=== PATIENT | female | born 1965 | race Caucasian/White ===

== ENCOUNTER → 2016-09-15 | Outpatient (CLI) | payer OTHER ==
[~2016-09-15] VITALS: Ht 152.4 cm; Wt 98.0 kg
[~2016-09-15] MED LIST: 8 HOUR650 MG RECTAL; ADULT SUPPOSIT1 EACH RECTAL; ALLERGY RELIEF25 M2 PO; AMBIEN 10 MG TA10 MG PO; ASPIRIN EC81 M1; ASPIRIN EC81 M1 PO; AUGMENTIN 875-1 EACH PO; AUGMENTIN 875875 MG PO; AZITHROMYCIN 2250 MG PO; AZOR 10-40 MG1 EACH PO; BUTRANS1 EAC2 TD; BUTRANS1 EAC3 TD; CARAFATE 11 GM/10 M1 PO; CEFDINIR300 MG PO; CELEBREX50 MG PO; CELEXA20 MG PO; COLACE100 MG PO; COUGH SYRUP118 ML PO; COZAAR 50 MG TA50 M2 PO; CYMBALTA30 MG PO; CYMBALTA60 MG PO; DIFLUCAN150 MG PO; DILAUDID2 M1 PO; DUONEB 2.5-0.5 M3 ML INH; FLAGYL500 MG PO; FLEET ENEMA118 ML RC; FLEXERIL PO; FLONASE 0.05%50 MCG NASAL; GLUCOSAMINE CH1 EAC1 PO; HYDROCODON-ACE1 EAC7 PO; HYDROCODON-ACE1 EAC8 PO; HYDROCODON-ACE1 EACH PO; HYDROCODONE-AP1 EAC6 PO; IBUPROFEN 400400 M1 PO; KLOR-CON 1010 MEQ PO; LEVAQUIN 500 M500 M2 PO; LINZESS145 MCG PO; LIPITOR10 MG PO; LISINOPRIL20 MG PO; LIVALO4 MG PO; MEDROLDOSEPACK; MIRALAX17 GM PO; MOM PO; MUCINEX TA600 MG/TA1 PO; NABUMETONE 750750 M1 PO; NEURONTIN 300300 M1 PO; NEURONTIN 300M300 M2; NICODERM CQ1 EAC1; NICOTINE TRANSD21 M1 TRANSDERM; NORCO 5-325 TA1 EACH PO; NORFLEX100 MG PO; NORVASC10 MG; NORVASC10 MG PO; NYSTATIN 1100000 U/M PO; NYSTATIN 1100000 U/M SW&SWALLOW; OMNICAP TABLET0.4 MG; ONDANSETRON HCL4 M2 PO; PANTOPRAZOLE SO40 M1 PO; PERCOCET 7.5-31 EACH; PERCOCET 7.5-31 EACH PO; POTASSIUM20 PO; PREDNISONE 10 M10 MG PO; PREDNISONE 20 M20 MG PO; PREVACID15 MG PO; PREVACID30 M2 PO; PROAIR HFA8.5 GM INH; PROMS25 WY RECTAL; PROTONIX40 M1 PO; PROTONIX40 MG PO; PULMICORT0.25 MG/3 INH; PULMICORT0.5 MG/21 INH; REGLAN 10 MG TA10 MG PO; REQUIP 0.25 M0.25 MG PO; SYMBICORT160 MCG/4. INH; TESSALON PERLE100 MG PO; TIZANIDINE HCL 22 M1 PO; TOPROL XL 50 MG50 M1 PO; TRAMADOL 50 MG50 MG PO; VENTOLIN HFA 1818 GM INH; VENTOLIN HFA INH8 GM INH; VESICARE 5 MG TA5 M1 PO; VITAMIN D 5050000 I1 PO; XANAX 0.25 MG0.25 MG PO; XANAX 0.5 MG0.5 M1 PO; XANAX 0.5 MG0.5 MG PO; ZANAFLEX2 MG PO; ZANAFLEX4 MG PO; ZESTRIL40 MG PO; ZOCOR40 MG PO; ZOFRAN8 MG PO; ZPAK PO
--- NOTE | ~2016-09-15 | HPC ---
[facility] [place] [address] PAIN MANAGEMENT CONSULTATION Name: ALLEN CABRERA Room #: REG [facility] Paola.#: [id number] Admission: 09/15/16 Attend Phys: William Ramsey DO Discharge: Date of : 69 Report #: [id number] THIS REPORT FOR: //name// CC: Danielle Fisher DATE OF SERVICE: 09/15/2016 The patient is a 51-year-old female, well known to the pain clinic. She works at [employer]. She has been treated for lumbar radiculopathy, myofascial pain, neuropathic pain, DJD affecting bilateral knees, SI joint dysfunction requiring complex medication management. Last seen in pain clinic on 08/19/2016. She continued on Butrans 10 mcg, Requip h.s., gabapentin 300 mg 4 tablets h.s. and Relafen 750 mg b.i.d. He returns to pain clinic today, we had a prolonged visit from 13:05 to 13:30, greater than 50% of this 25-minute visit was spent counseling the patient. She is complaining of ongoing multiple pain generators, bilateral knees, left leg and left SI joint pain. She continues to smoke, down to half a pack a day and was counseled regarding smoking, nicotine use and axial back pain. She notes she also some pain in the left foot. It sounds more like arthritic issues at the first great toe, proximal interphalangeal joint. Rates the pain 6 on 0-10 visual analog scale, presently noting that the Butrans has afforded some efficacy. She does take a rare hydrocodone. She has tried rotating gabapentin from 4, 300 tablets h.s. to 1 in the morning and 3 at night. This did not affect her daytime somnolence. Continue Relafen 750 b.i.d. PHYSICAL EXAMINATION: This is a 51-year-old female, moderately obese with a BMI of 42.2 kilograms per meter squared. Blood pressure is modestly elevated at 135/92, pulse 86 and respirations 15. Straight leg raise is negative, but the left hip flexion strength is diminished about 3/5, all other objective muscle groups are 4/5 including the right leg muscle groups. Tender over the SI joints, left greater than right. Positive Li test on the left. Interestingly today, there are really no discrete trigger points or muscle tautness noted in the splenius capitis and trapezius and thoracic paravertebral muscles, though she has a prior diagnosis of "fibromyalgia." ASSESSMENT: 1. Symptomatic sacroiliac joint dysfunction by clinical exam. 2. History of lumbar radiculopathy, myofascial pain, degenerative joint disease affecting bilateral knees with tenderness in the left knee, currently wearing a left knee brace, minimal ballotable edema. RECOMMENDATIONS: 1. X-rays, bilateral knees. 2. Continue current medication with the addition of a rare p.r.n. hydrocodone [address] [address] PAIN MANAGEMENT CONSULTATION Name: DEBORAHALLENDELL DUNCAN Room #: REG GUILHERME Lopez#: [id number] Admission: 09/15/16 Attend Phys: William Ramsey DO Discharge: Date of : 69 Report #: [id number] 5/325 taken the liberty of writing for 30 tablets. 3. We will seek authorization for left SI joint injection under fluoroscopy for left lumbosacral spondylosis, mediated pain. She had some 90% relief from a left SI joint injection for greater than 2 months back in May. The patient was discharged in good and stable condition after prolonged visit, greater than 50% of time spent counseling the patient regarding core strengthening exercises, nicotine abstinence, dietary discretion and chronic pain concerns. We reviewed the fact that opiate medications are being used to provide analgesia adequate to support activities of daily living, not attempting to achieve a specific pain score on the 0-10 Visual Analog Scale. The current opiate medications are providing sufficient analgesia to allow the patient to participate in activities of daily living. The patient is not exhibiting any aberrant behavior suggestive of drug diversion. The patient is not having any adverse reactions to medications. The patient is not suffering from daytime somnolence or mental acuity changes. The patient is managing opiate-induced constipation with appropriate ogzc-koh-kemzfys agents and dietary considerations. The patient was counseled on concern for caution with operating a motor vehicle while using opiate medications. A physical exam was performed and the patient's functional status was evaluated. All patients with back pain were advised against the bed rest greater than 4 days and were advised to return to normal activities. Pain score assessment was noted and the treatment plan was reviewed with the patient. All current medications, both prescribed and OTC were reviewed and reconciled on the electronic medical record. Tobacco screening was accomplished and smoking cessation was advised when indicated. BMI was noted and diet/exercise modification was recommended for all patients following outside normal parameters. I reviewed with the patient today their responsibilities to safeguard prescription medications, reviewed their responsibility to utilize medications only as prescribed by the physician. They are to seek and receive pain medications only from 1 physician group ([facility]). They are to use 1 pharmacy and keep the clinic informed if they change pharmacies. Their responsibilities include making followup visits in a timely fashion and to avoid abrupt discontinuation of medication usage. Their responsibilities further include bringing their medications (bottles from the pharmacy with residual pills) to the visit for possible confirmation of pill counts and the patient understands it is their responsibility to submit to random drug screens to ensure both that the medications prescribed are present, and that no other [facility] [address] [place] [address] PAIN MANAGEMENT CONSULTATION Name: ALLEN CABRERA Room #: REG [facility]..#: [id number] Admission: 09/15/16 Attend Phys: William Ramsey DO Discharge: Date of : 69 Report #: [id number] controlled substances are present. All prescriptions provided today were generated electronically. <ELECTRONICALLY SIGNED> By: William Ramsey DO 09/21/16 1031 1559 2349 William Ramsey DO /nt
[2016-09-15 12:56] VITALS: BP 135/92
== END | disposition home or self-care (01) ==
LOC: PAIN 07:27
DX: M53.3 Sacrococcygeal disorders, not elsewhere classified (principal); M54.16 Radiculopathy, lumbar region; M79.1 Myalgia; M17.0 Bilateral primary osteoarthritis of knee; M47.897 Other spondylosis, lumbosacral region; G89.29 Other chronic pain; F17.200 Nicotine dependence, unspecified, uncomplicated; G47.30 Sleep apnea, unspecified; G43.909 Migraine, unspecified, not intractable, without status migrainosus; E66.01 Morbid (severe) obesity due to excess calories; Z68.41 Body mass index [BMI] 40.0-44.9, adult

== ENCOUNTER → 2017-02-09 | Outpatient (CLI) | payer OTHER | LOC: MRI 09:21 | DX: M48.02 Spinal stenosis, cervical region (principal); M51.24 Other intervertebral disc displacement, thoracic region; M50.223 Other cervical disc displacement at C6-C7 level ==

== ENCOUNTER → 2017-02-10 | Outpatient (CLI) | payer OTHER | LOC: MRI 09:14 | DX: M75.52 Bursitis of left shoulder (principal) ==

== ENCOUNTER → 2017-02-16 | Outpatient (CLI) | payer OTHER ==
[~2017-02-16] VITALS: Ht 165.1 cm; Wt 94.0 kg
[~2017-02-16] MED LIST changes: +MOBIC15 MG PO; +ROBAXIN 750 MG750 M1 PO
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
[2017-02-16 10:03] VITALS: BP 158/108
== END ==
LOC: PAIN 06:56
DX: M54.12 Radiculopathy, cervical region (principal); M54.16 Radiculopathy, lumbar region; G89.4 Chronic pain syndrome; I10 Essential (primary) hypertension; J06.9 Acute upper respiratory infection, unspecified; J20.9 Acute bronchitis, unspecified; G43.909 Migraine, unspecified, not intractable, without status migrainosus; J20.1 Acute bronchitis due to Hemophilus influenzae; F17.200 Nicotine dependence, unspecified, uncomplicated

== ENCOUNTER → 2017-03-09 | Outpatient (CLI) | payer OTHER ==
[~2017-03-09] VITALS: Ht 165.1 cm; Wt 93.7 kg
[2017-03-09 09:59] VITALS: BP 145/84
== END | disposition home or self-care (01) ==
LOC: PAIN 06:38
DX: M54.12 Radiculopathy, cervical region (principal); M25.512 Pain in left shoulder; M54.5 Low back pain; G89.29 Other chronic pain; K21.9 Gastro-esophageal reflux disease without esophagitis; G47.33 Obstructive sleep apnea (adult) (pediatric); G43.909 Migraine, unspecified, not intractable, without status migrainosus; F17.210 Nicotine dependence, cigarettes, uncomplicated; F41.8 Other specified anxiety disorders; Z88.8 Allergy status to other drugs, medicaments and biological substances; Z98.890 Other specified postprocedural states

== ENCOUNTER → 2017-05-05 | Outpatient (CLI) | payer OTHER ==
[~2017-05-05] VITALS: Ht 165.1 cm; Wt 95.1 kg
[~2017-05-05] MED LIST changes: +BUTRANS1 EAC4 TD
--- NOTE | ~2017-05-05 | HPC ---
[facility] [place] [address] PAIN MANAGEMENT CONSULTATION Name: ALLEN CABRERA Room #: REG GUILHERME Lopez#: [id number] Admission: 05/05/17 Attend Phys: William Ramsey DO Discharge: Date of : 69 Report #: [id number] THIS REPORT FOR: //name// CC: Benjie Ramsey HISTORY OF PRESENT ILLNESS: The patient is a 51-year-old female well known to the pain clinic, she has worked at [employer] for many years, has been treated for cervical radicular symptoms, lumbar radiculopathy, left hip pain, left SI pain, left shoulder pain, requiring high risk complex medication management. Last seen in the pain clinic on 03/09/2017. She was given a cervical epidural injection for exacerbation of cervical radicular symptoms. She had somewhat of a palpable pop and click in the left shoulder. I referred her to Dr. Saiin at [facility]. He evaluated her shoulder, did give her what sounds like a steroid injection in the shoulder and considered physical therapy. She is currently doing PT, but notes pain continues to be problematic. Given diagnostic findings including MRI of the left shoulder on 02/10/2017 noting mild subacromial and subdeltoid bursitis along with cervical physical exam noting irritation of the left C7 nerve root. I have referred the patient to Dr. Gt Ahmadi's office for consideration for surgical definitive intervention on cervical spine. The patient returns to pain clinic today, we had a prolonged visit reviewing interval therapeutic options. She notes PT for the left shoulder is causing increasing pain in actually both shoulders now. Acute exacerbation of lumbar radicular pain with pain in the left low back radiating into the buttock and leg. She notes the Butrans patch at 10 mcg is not providing sufficient analgesia for her to participate in physical therapy. PHYSICAL EXAMINATION: GENERAL: Shows a 51-year-old female, BMI is 34.9 kilograms per meter squared. She continues to smoke and was counseled regarding same. VITAL SIGNS: Blood pressure 143/86, pulse 86, respirations 20. NEUROLOGIC: Cervical range of motion is modestly limited, grossly positive Lhermitte's radiating to the left shoulder and arm with paresthesia into the hand. Has a modestly positive Tinel's over the left ulnar. Hand grasp, however, is generally symmetric. Discrete diffuse tenderness in the splenius capitis and trapezius muscles with discrete trigger points noted, left greater than right trapezius and splenius capitis, 4 discrete trigger points identified. Rises from chair using armrests, antalgic gait. Lumbar flexion is limited. Positive straight leg raise on the left, slight decreased left hip flexion strength. Passive rotation of the hip exacerbates some pain, but this does not reproduce current symptoms. Tender over the left SI, but this does not reproduce her lumbar radicular symptoms either. DIAGNOSTIC STUDIES: Again reviewing diagnostic studies, plain series x-rays of the lumbar spine from 01/21/2017 notes disk narrowing at L4-L5 and L5-S1. [address] [address] PAIN MANAGEMENT CONSULTATION Name: DEBORAHALLENDELL RICHEYE Room #: REG CLI Jessica#: [id number] Admission: 05/05/17 Attend Phys: William Ramsey DO Discharge: Date of : 69 Report #: [id number] ASSESSMENT: 1. Cervical radiculopathy by clinical exam and history. 2. Left shoulder degenerative joint disease, pain. 3. Axial back pain. 4. Lumbar radiculopathy, acute exacerbation of left L4 radicular symptoms. 5. New diagnosis of myofascial pain with trigger points identified times 4. 6. Opiate consent to treat contract, high risk complex medication management. RECOMMENDATIONS: 1. We will increase Butrans transdermal from 10 to 15 mcg for 2 months. 2. Continue meloxicam 15 mg 1 a day, patient tells me she did follow up with Dr. Palomo's office and renal function was adequate. 3. I will renew physical therapy asking them to direct attention to both shoulders (currently PT is only for left shoulder), mid and low back muscle spasm and core stability. 4. Trigger point injections to the 4 discrete trigger points noted. 5. Epidural injection under fluoroscopy today at L4-L5. PROCEDURE: Trigger point injections times 4. PROCEDURE NOTE: After written informed consent was obtained, the patient was placed in the prone position. Four discrete trigger points identified in the left and right splenius capitis and left and right trapezius. After prep with alcohol, a 25-gauge needle was used to inject 20 mg of triamcinolone plus 6 mL of 0.5% preservative-free bupivacaine. The patient was then placed in the fluoroscopy suite in prone position. L4 epidural injection was accomplished under fluoroscopy. PROCEDURE: Lumbar epidural steroid injection. PROCEDURE NOTE: After both written and informed consent to include risk of spinal cord damage, increased pain, weakness and dural puncture, the patient was taken to the fluoroscopy suite, placed in the prone position. After sterile prep and drape, a skin wheal with lidocaine was raised. A 22-gauge epidural Tuohy needle was inserted in the midline at L4-L5 with good loss to resistance. Negative aspiration for cerebrospinal fluid or blood was noted. Then 1 mL of Omnipaque under biplanar fluoroscopy showed good spread within the epidural space. This was followed with 60 mg of triamcinolone plus 1 mL of 1.5% preservative-free Xylocaine, 0.5 mL Xylocaine was then injected to flush the needle; it was removed. The patient was monitored for an appropriate period of time and discharged in good and stable condition. <ELECTRONICALLY SIGNED> By: William Ramsey DO 05/08/17 1253 1148 1944 William Ramsey DO /nt
[2017-05-05 10:11] VITALS: BP 143/86
== END | disposition home or self-care (01) ==
LOC: PAIN 07:00
DX: M54.16 Radiculopathy, lumbar region (principal); M79.1 Myalgia; M54.12 Radiculopathy, cervical region; M19.012 Primary osteoarthritis, left shoulder; M54.5 Low back pain; Z68.34 Body mass index [BMI] 34.0-34.9, adult

== ENCOUNTER 2017-05-09 10:11 | Observation (INO) | payer OTHER ==
[~2017-05-09] VITALS: Ht 165.1 cm; Wt 93.9 kg
--- NOTE | ~2017-05-09 | EKG ---
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: KEV : 1965 Requested By: Maverick Menendez Order Number: [id number] MD: Brian Baez Measurements Intervals [place] Rate: 65 P: 19 MA: 137 QRS: 5 QRSD: 95 T: 12 QT: 393 QTc: 409 Interpretive Statements Sinus rhythm No significant abnormality Compared to ECG 07/29/2016 14:27:38 No significant changes Electronically Signed On 05-09-2017 18:00:24 CDT by Brian Baez [email or web address] <ELECTRONICALLY SIGNED> By: Brian Baez MD, [facility] 05/09/17 1800 50 50 Brian Baez MD, [facility] /EPI
--- NOTE | ~2017-05-09 | P ---
[facility] [place] [address] PROCEDURE REPORT Name: ALLEN CABRERA Room #: 210-P [facility] Wilma Lopez#: [id number] Admission: 05/09/17 Attend Phys: Benjie Palomo MD Discharge: 05/10/17 Date of : 69 Report #: [id number] THIS REPORT FOR: //name// CC: Robin Palomo MD DATE OF SERVICE: 05/10/2017 PROCEDURE: EGD with esophageal dilatation and brushings. PATIENT OF: Dr. Benjie Palomo and Dr. Robin Edwards. INDICATION FOR PROCEDURE: This patient has been having intermittent dysphagia, gastroesophageal reflux symptoms, epigastric pain, nausea and vomiting and chest pressure, etiology uncertain. Informed consent for this procedure was obtained prior to the administration of any medication. The risks of the procedure, which include bleeding, perforation, infection, complications of sedation and the possibility I could miss something have been explained to the patient and she has indicated her consent by signing. Propofol was slowly titrated before and during this procedure for patient comfort by the anesthesia service. The GeneNewsn upper videoscope was introduced through the upper esophageal sphincter and advanced under direct visualization to the second portion of the duodenum. Findings are noted on withdrawal of the scope. The duodenal mucosa appears normal throughout its entirety. Pylorus, normal mucosa. Antrum, normal mucosa. Body, normal mucosa. Cardia and fundus, normal mucosa. Retroflex view did not reveal any abnormalities. The scope was withdrawn into the esophagus. The Z-line is appropriately located at the top of the gastric folds and appears normal. The esophageal mucosa appears normal except for an exudative type of material that could be Ayesha that extends in islands throughout the esophagus. Brushings were obtained of this for ERIC prep to rule out Ayesha. Then, the scope was advanced into the stomach. The guidewire was advanced through the scope. The scope was withdrawn over the guidewire and a #48-Swedish Savary was passed over the guidewire. With that difficulty in order to try to alleviate her dysphagia, the guidewire and the dilator were removed and then the Fujinon upper videoscope was reintroduced through the upper esophageal sphincter and advanced under direct visualization to the descending duodenum. Once again, the duodenal mucosa appears normal. Pylorus, normal mucosa. Antrum, normal mucosa. Body, normal mucosa. Cardia and fundus, normal mucosa. Retroflex view did not reveal any abnormalities. The scope was withdrawn to the esophagus. There was no esophageal tears or from this esophageal dilatation. The esophageal mucosa is unchanged. The [address] [address] PROCEDURE REPORT Name: ALLEN CABRERA Room #: 210-P AMARI Dillon M.RAlex#: [id number] Admission: 05/09/17 Attend Phys: Benjie Palomo MD Discharge: 05/10/17 Date of : 69 Report #: [id number] scope was withdrawn. The patient went to the recovery area in stable condition. She tolerated the procedure well. IMPRESSION: 1. Possible esophageal candidiasis, brushings for ERIC prep pending. 2. Passage of a #48-Swedish Savary dilator over guidewire without difficulty in an attempt to alleviate her dysphagia. My recommendations are to await the ERIC prep. She can use H2 receptor antagonist blockers such as Tagamet, Pepcid, or Zantac p.r.n. for chest pain and gastroesophageal reflux symptoms. She p.r.n. as well. Thank you very much once again for allowing me to participate in her care, Dr. Palomo. <ELECTRONICALLY SIGNED> By: Maday Lei DO 05/11/17 0540 1441 2213 Maday Lei DO /nt
--- NOTE | ~2017-05-09 | CNG ---
[facility] [place] [address] CYTO-NONGYN REPORT PROCEDURE Name: ALLEN WATSON Room #: 210-P [facility] Wilma Lopez#: [id number] Admission: 05/09/17 Date of : 69 Discharge: 05/10/17 Report #: [id number] Path Case #: [id number] CYTOPATHOLOGY REPORT COLLECTION DATE: 05/10/2017 RECEIVED DATE: 05/11/2017 SUBMITTING PHYS: Dr. Maday Lei OTHER PHYS: Dr. Benjie Edwards CLINICAL HISTORY: Epigastric pain and nausea and vomiting for 2 days. SPECIMEN(S) RECEIVED: A.Esophageal brushings * * * * * * * * * * * * FINAL DIAGNOSIS: A. Esophageal brushings: - No malignant cells identified. - Reactive cellular changes, squamous cells and fungal organisms morphologically consistent with Ayesha species are identified. PATHOLOGIST: Yuni Pedroza M.D. REPORT ELECTRONICALLY SIGNED BY: Yuni Pedroza M.D. DATE/TIME: 05/12/2017 16:54 * * * * * * * * * * * * GROSS PATHOLOGY: A. Esophageal brushings: The specimen is labeled "Allen Watson" and consists of a brush tip in fixative. One ThinPrep slide was prepared. (clt 05.11.2017) ELECTROMECHANICAL INSPECTOR(S): EDWARD Banegas([facility]) INITIAL CPT CODE(S): A; 21775 Professional services performed by [facility] at [facility] [address], [place] [address] Technical services performed by [facility] at [address] [place] [address]., [address], [place] [address]. [facility] [address] [place] [address], [address] [place] [address] [facility] [address] [place] [address] CYTO-NONGYN REPORT PROCEDURE Name: ALLEN WATSON Room #: 210-P AMARI Lopez#: [id number] Admission: 05/09/17 Date of : 69 Discharge: 05/10/17 Report #: [id number] Path Case #: [id number] PHONE: [phone] DIRECTOR: Hardy Dyer M.D. * * * END OF REPORT * * *
[2017-05-09 10:14] VITALS: BP 144/88
[2017-05-09 10:39] LABS: URINE BILIRUBIN NEGATIVE (Negative); URINE BLOOD 1+ (Negative); URINE COLOR YELLOW; URINE GLUCOSE-RANDOM* NEGATIVE (Negative); URINE KETONES NEGATIVE (Negative); URINE LEUKOCYTES-REFLEX NEGATIVE (Negative); URINE PROTEIN (DIPSTICK) NEGATIVE (Negative); URINE UROBILINOGEN 0.2 E.U./dl (0.2-1.0)
[2017-05-09 10:50] LABS: ABSOLUTE NEUTROPHILS 12.4 thou/uL (1.4-8.2); BASOPHILS 0.8 % (0.0-2.0); EOSINOPHILS 0.5 % (0.0-3.0); HEMATOCRIT 44.3 % (37.0-47.0); HEMOGLOBIN 15.4 gm/dL (12.0-15.0); LYMPHOCYTES 21.3 % (24.0-44.0); MCH 33.5 pg (26.0-34.0); MCHC 34.7 g/dL (28.0-37.0); MCV 96.7 fL (80.0-100.0); MONOCYTES 5.4 % (1.0-8.0); PLATELET COUNT 312 thou/uL (150-400); RBC 4.59 mil/uL (4.20-5.00); RDW 14.8 % (10.5-14.5); WBC 17.2 thou/uL (4.0-11.0)
[2017-05-09 10:51] LABS: CASTS None Seen /LPF (None Seen); CRYSTALS None Seen /LPF (None Seen); SQUAMOUS 0-3 Few /LPF (0-3); URINE RBC 3-10 Few /HPF (0-2); URINE WBC-REFLEX 0-5 Rare /HPF (0-5)
[2017-05-09 10:51] LABS: MANUAL DIFF NO
[2017-05-09 11:00] LABS: ANION GAP 8 mmol/L (7-16); BUN 11 mg/dL (7-18); CALCIUM 9.3 mg/dL (8.5-10.1); CHLORIDE 103 mmol/L (98-107); CO2 30 mmol/L (21-32); CREATININE 0.6 mg/dL (0.6-1.0); GLUCOSE 94 mg/dL (74-106); SODIUM 141 mmol/L (136-145)
[2017-05-09 11:07] LABS: ALBUMIN 3.8 g/dL (3.4-5.0); ALKALINE PHOSPHATASE 104 U/L (46-116); SGOT 15 U/L (15-37); SGPT 31 U/L (30-65); TOTAL BILIRUBIN 0.3 mg/dL (<0.1-1.0); TOTAL PROTEIN 7.7 g/dL (6.4-8.2); TROPONIN-I < 0.04 ng/mL (<0.04-0.07)
[2017-05-09 12:06] VITALS: BP 144/88
[2017-05-09 12:18] VITALS: BP 153/94; BP 156/92
[2017-05-09 13:29] VITALS: BP 135/83
[2017-05-09] MEDS ORDERED: OMEPRAZOLE40 MG PO (14:39)
[2017-05-09 15:29] VITALS: BP 139/87
[2017-05-09 20:08] VITALS: BP 134/80
[2017-05-10 04:02] VITALS: BP 150/96
[2017-05-10 08:07] VITALS: BP 150/101
[2017-05-10 12:04] VITALS: BP 131/79
[2017-05-10 15:53] VITALS: BP 131/79
== END 2017-05-10 16:30 | disposition home or self-care (01) ==
LOC: ER 10:11 → 2N 11:49 → EROBS 11:49 → 2N 12:56 → ENTRNSPT 05-10 16:23 → 2N 05-10 16:30
PROVIDERS: Emergency Medicine
DX: R13.10 Dysphagia, unspecified (principal); F17.210 Nicotine dependence, cigarettes, uncomplicated; Z79.899 Other long term (current) drug therapy
CPT/HCPCS: 62110; 62900; 70005

== ENCOUNTER → 2017-06-22 | Outpatient (CLI) | payer OTHER ==
[~2017-06-22] VITALS: Ht 165.1 cm; Wt 94.2 kg
[~2017-06-22] MED LIST changes: +BUTRANS1 EACH TRANSDERM; +OMEPRAZOLE40 MG PO; +PHENERGAN 25 MG25 M1 PO; +ZOFRAN ODT4 MG PO
--- NOTE | ~2017-06-22 | HPC ---
[facility] [place] [address] PAIN MANAGEMENT CONSULTATION Name: ALLEN CABRERA Room #: REG [facility] Paola.#: [id number] Admission: 06/22/17 Attend Phys: William Ramsey DO Discharge: Date of : 69 Report #: [id number] THIS REPORT FOR: //name// CC: Benjie Ramsey HISTORY OF PRESENT ILLNESS: The patient is an unfortunate 51-year-old female, long known to pain clinic, typically treated for myofascial pain, chronic pain syndrome, component of lumbar radiculopathy requiring high risk complex medication management. Last seen in pain clinic on 05/05/2017. We did do an epidural injection at that time (lumbar epidural injection, she had a cervical injection on March 09 and February 16 of this year). She returns to pain clinic today, she has tearful and frustrated. She states the injections helped for a short period of time, the pain remains problematic. She has been unable to start physical therapy, I had written for physical therapy at last visit, specifically for shoulder, back muscle range of motion and core stabilization. PHYSICAL EXAMINATION: Today is generally unchanged. Frustrated 51-year-old female. BMI is elevated at 34.5 kilograms per meter squared. She continues to smoke and was counseled regarding same. Blood pressure is nominally elevated 151/71, pulse 87, respirations 20. Position of comfort is standing. Subjective pain in the back, radiating around to her thighs and groin. Gait is modestly antalgic. Lumbar flexion is limited. Lower extremity strength is diminished, but is generally symmetric. We reviewed the fact that opiate medications are being used to provide analgesia adequate to support activities of daily living, not attempting to achieve a specific pain score on the 0-10 Visual Analog Scale. The current opiate medications are providing sufficient analgesia to allow the patient to participate in activities of daily living. The patient is not exhibiting any aberrant behavior suggestive of drug diversion. The patient is not having any adverse reactions to medications. The patient is not suffering from daytime somnolence or mental acuity changes. The patient is managing opiate-induced constipation with appropriate olun-wrm-svwljvc agents and dietary considerations. The patient was counseled on concern for caution with operating a motor vehicle while using opiate medications. A physical exam was performed and the patient's functional status was evaluated. All patients with back pain were advised against the bed rest greater than 4 days and were advised to return to normal activities. Pain score assessment was noted and the treatment plan was reviewed with the patient. All current medications, both prescribed and OTC were reviewed and reconciled on the electronic medical record. Tobacco screening was accomplished and smoking cessation was advised when indicated. BMI was noted and diet/exercise modification was recommended for all patients following outside normal [address] [address] PAIN MANAGEMENT CONSULTATION Name: DEBORAHALLENDELL DUNCAN Room #: REG [facility] Lopez#: [id number] Admission: 06/22/17 Attend Phys: William Ramsey DO Discharge: Date of : 69 Report #: [id number] parameters. I reviewed with the patient today their responsibilities to safeguard prescription medications, reviewed their responsibility to utilize medications only as prescribed by the physician. They are to seek and receive pain medications only from 1 physician group ( [facility]). They are to use 1 pharmacy and keep the clinic informed if they change pharmacies. Their responsibilities include making followup visits in a timely fashion and to avoid abrupt discontinuation of medication usage. Their responsibilities further include bringing their medications (bottles from the pharmacy with residual pills) to the visit for possible confirmation of pill counts and the patient understands it is their responsibility to submit to random drug screens to ensure both that the medications prescribed are present, and that no other controlled substances are present. All prescriptions provided today were generated electronically. ASSESSMENT: Chronic pain syndrome requiring high risk complex medication management, axial back pain, myofascial pain, component of lumbar radiculopathy. RECOMMENDATIONS: I had a long discussion with the patient today about therapeutic options. We have elected to continue Butrans patch, increasing from 15 to 20 mcg q. 7 days. We will add short course of tramadol 50 mg to take for breakthrough pain. Increase tizanidine from 2 to 4 mg t.i.d. Continue gabapentin 300 mg 1 in the morning and 3 at night, this prescription does not require a refill this time. The patient is voicing concerns that she is unable to work. I referred her to [facility] for a functional capacity exam. Discharged in good and stable condition. Follow up in 4 weeks to evaluate efficacy of medication changes. <ELECTRONICALLY SIGNED> By: William Ramsey DO 06/23/17 0949 [id number] William Ramsey DO /nt
[2017-06-22 10:34] VITALS: BP 151/71
== END | disposition home or self-care (01) ==
LOC: PAIN 07:05
DX: Z76.0 Encounter for issue of repeat prescription (principal); G89.4 Chronic pain syndrome; M79.1 Myalgia; M54.16 Radiculopathy, lumbar region; K21.9 Gastro-esophageal reflux disease without esophagitis; F41.8 Other specified anxiety disorders; F17.200 Nicotine dependence, unspecified, uncomplicated; Z79.891 Long term (current) use of opiate analgesic; G43.909 Migraine, unspecified, not intractable, without status migrainosus; Z79.899 Other long term (current) drug therapy

== ENCOUNTER 2017-06-24 08:37 | Emergency (ER) | payer OTHER ==
[~2017-06-24] VITALS: Ht 167.6 cm; Wt 90.7 kg
[~2017-06-24 08:37] MED LIST changes: -PHENERGAN 25 MG25 M1 PO; -ZOFRAN ODT4 MG PO
[2017-06-24] MEDS ORDERED: PROMS25 WY RECTAL (09:07)
[2017-06-24] MEDS ORDERED: ZOFRAN ODT4 MG PO (09:07)
[2017-06-24] MEDS ORDERED: PHENERGAN 25 MG25 M1 PO (09:07)
[2017-06-24 09:19] LABS: HEMATOCRIT 40.9 % (37.0-47.0); HEMOGLOBIN 14.2 gm/dL (12.0-15.0); MCH 33.6 pg (26.0-34.0); MCHC 34.7 g/dL (28.0-37.0); MCV 96.8 fL (80.0-100.0); RBC 4.23 mil/uL (4.20-5.00); RDW 14.2 % (10.5-14.5)
[2017-06-24 09:30] LABS: CALCIUM 8.9 mg/dL (8.5-10.1); CREATININE 0.6 mg/dL (0.6-1.0); POTASSIUM 3.4 mmol/L (3.5-5.1)
[2017-06-24 10:45] VITALS: BP 132/94
== END 2017-06-24 10:45 | disposition home or self-care (01) ==
LOC: ER 08:37
PROVIDERS: Emergency Medicine
DX: R11.2 Nausea with vomiting, unspecified (principal); R51 Headache; G89.29 Other chronic pain; M54.5 Low back pain; F17.210 Nicotine dependence, cigarettes, uncomplicated; Z90.710 Acquired absence of both cervix and uterus; Z88.6 Allergy status to analgesic agent; Z91.048 Other nonmedicinal substance allergy status; Z88.8 Allergy status to other drugs, medicaments and biological substances

== ENCOUNTER → 2017-06-26 | Outpatient (CLI) | payer OTHER ==
[~2017-06-26] MED LIST changes: +PHENERGAN 25 MG25 M1 PO; +ZOFRAN ODT4 MG PO
== END ==
LOC: RAD 09:52
DX: R05 Cough (principal)

== ENCOUNTER → 2017-08-31 | Outpatient (CLI) | payer OTHER ==
[~2017-08-31] VITALS: Ht 165.1 cm; Wt 93.9 kg
--- NOTE | ~2017-08-31 | HPC ---
[facility] [address] [address] PAIN MANAGEMENT CONSULTATION Name: ALLEN CABRERA Room #: REG [facility] Jessica#: [id number] Admission: 08/31/17 Attend Phys: William Ramsey DO Discharge: Date of : 69 Report #: [id number] THIS REPORT FOR: //name// CC: Benjie Ramsey HISTORY OF PRESENT ILLNESS: The patient is a 51-year-old female, long known to pain clinic, typically treated for lumbar radiculopathy, myofascial pain requiring high-risk complex medication management. Last seen in the pain clinic on 07/27/2017. Buccal swab at that time was negative for controlled substances. She has been using a Butrans patch 20 mcg. We discontinued tizanidine and tramadol. We elected to use a low dose hydrocodone 5/325. The patient was given a prescription for 50 tablets at that time. Returns to pain clinic today now approximately 5 weeks later. She still has about half of that prescription left. She is taking it appropriately. She has gabapentin 300 mg 4 tablets at bedtime. The patient notes today ongoing axial back pain remains problematic but she is having significant increase in cervical radicular symptoms. Notes pain chronically in the right low back, doing physical therapy and stretching. She does have radicular symptoms in the left hand going into the C7 distribution. I did review MRI from February 2017, which does show mild left C6-C7 neural foraminal narrowing. PHYSICAL EXAMINATION: GENERAL: Shows a 51-year-old female, BMI 34.4 kilograms per meter squared. VITAL SIGNS: Blood pressure 137/96, pulse 89 and respirations 14. MUSCULOSKELETAL: Cervical range of motion is positive with limits going into the left and upper extremity strength modestly diminished, left greater than right. Deep tendon reflexes show diminished brachioradialis reflex in the left, 1/4 to 2/4 and the right biceps reflex symmetric at 1/4. Tinel's is negative. Diffuse axial back pain, no discrete trigger points noted. ASSESSMENT AND RECOMMENDATIONS: 1. Axial back pain, lumbar radiculopathy requiring high-risk complex medication management. Recommendation, renew Butrans patch 20 mcg q. 7 days, taken the liberty of writing for 4 patches with 1 refill. She does not require renewal of hydrocodone at this time. 2. Acute exacerbation of cervical radiculopathy, recommendation cervical epidural injection under fluoroscopy. PROCEDURE: Cervical epidural injection under fluoroscopy. PROCEDURE NOTE: After written and informed consent was obtained including risk of dural puncture, spinal cord trauma, paralysis and increased pain, the patient was taken to the fluoroscopy suite and placed in the prone position, with appropriate abdominal bolstering, neck was flexed, [place] [address] PAIN MANAGEMENT CONSULTATION Name: ALLEN CABRERA DAKOTA Room #: REG [facility] Lopez#: [id number] Admission: 08/31/17 Attend Phys: William Ramsey DO Discharge: Date of : 69 Report #: [id number] Skin was prepped with ChloraPrep. Sterile draping was applied. Skin wheal with 1% Xylocaine was raised. A 22-gauge 3-1/2 inch epidural Tuohy needle was placed via a midline approach at the C7-T1 interspace, advanced under biplanar fluoroscopy using continuous loss of resistance. With appropriate loss of resistance at the expected depth on lateral view, the glass loss of resistance syringe was disconnected. A low volume extension tubing was connected to the needle and a 5 mL syringe. Negative aspiration for cerebrospinal fluid or blood was noted. A 1 mL of Omnipaque was injected which showed spread within the epidural space on biplanar fluoroscopy. This was followed with 80 mg of triamcinolone plus 1 mL of 1.5% preservative Xylocaine. Needle was withdrawn to the interspinous ligament, 0.5 mL of Xylocaine was used to flush the needle. The needle was then completely withdrawn. The area was cleansed. Band-Aid was applied. The patient was allowed to move off the procedure table and ambulated to the recovery room, monitored for an appropriate period of time, discharged in good and stable condition. <ELECTRONICALLY SIGNED> By: William Ramsey DO 09/01/17 0650 1639 0149 William Ramsey DO /nt
[2017-08-31 13:09] VITALS: BP 137/96
== END | disposition home or self-care (01) ==
LOC: PAIN 07:13
DX: M54.12 Radiculopathy, cervical region (principal); M54.16 Radiculopathy, lumbar region; M79.1 Myalgia; K21.9 Gastro-esophageal reflux disease without esophagitis; G47.33 Obstructive sleep apnea (adult) (pediatric); G43.909 Migraine, unspecified, not intractable, without status migrainosus; Z79.891 Long term (current) use of opiate analgesic; Z87.891 Personal history of nicotine dependence; Z88.8 Allergy status to other drugs, medicaments and biological substances; Z79.899 Other long term (current) drug therapy

== ENCOUNTER 2017-10-23 15:33 | Emergency (ER) | payer OTHER ==
[~2017-10-23] VITALS: Ht 165.1 cm; Wt 88.6 kg
[~2017-10-23 15:33] MED LIST changes: +VITAMIN D2000 UNIT PO; +VITAMINC500 PO
[2017-10-23 16:22] LABS: ABSOLUTE NEUTROPHILS 7.3 thou/uL (1.4-8.2); EOSINOPHILS 1.9 % (0.0-3.0); HEMATOCRIT 39.9 % (37.0-47.0); HEMOGLOBIN 13.9 gm/dL (12.0-15.0); LYMPHOCYTES 25.2 % (24.0-44.0); MCHC 34.8 g/dL (28.0-37.0); MCV 94.6 fL (80.0-100.0); PLATELET COUNT 244 thou/uL (150-400); POLYS 65.9 % (36.0-66.0); RBC 4.22 mil/uL (4.20-5.00)
[2017-10-23 16:30] LABS: ANION GAP 7 mmol/L (7-16); BUN 4 mg/dL (7-18); CALCIUM 8.9 mg/dL (8.5-10.1); CHLORIDE 101 mmol/L (98-107); CO2 31 mmol/L (21-32); CREATININE 0.8 mg/dL (0.6-1.0); GLUCOSE 94 mg/dL (74-106); POTASSIUM 3.6 mmol/L (3.5-5.1); SODIUM 139 mmol/L (136-145)
[2017-10-23 16:36] LABS: ALBUMIN 3.4 g/dL (3.4-5.0); DIRECT BILIRUBIN < 0.1 mg/dL (<0.1-0.3); LIPASE 70 U/L (73-393); SGOT 15 U/L (15-37); SGPT 25 U/L (30-65); TOTAL BILIRUBIN 0.4 mg/dL (<0.1-1.0); TOTAL PROTEIN 6.9 g/dL (6.4-8.2)
[2017-10-23 17:17] LABS: URINE BILIRUBIN NEGATIVE (Negative); URINE BLOOD 1+ (Negative); URINE CLARITY CLEAR; URINE COLOR YELLOW; URINE GLUCOSE-RANDOM* NEGATIVE (Negative); URINE KETONES NEGATIVE (Negative); URINE LEUKOCYTES-REFLEX NEGATIVE (Negative); URINE NITRITE-REFLEX NEGATIVE (Negative); URINE PROTEIN (DIPSTICK) NEGATIVE (Negative); URINE SPECIFIC GRAVITY <= 1.005 (1.005-1.035); URINE UROBILINOGEN 0.2 E.U./dl (0.2-1.0)
[2017-10-23 17:28] LABS: BACTERIA-REFLEX 1-9 Few /HPF (None Seen); CASTS None Seen /LPF (None Seen); CRYSTALS None Seen /LPF (None Seen); SQUAMOUS 0-3 Few /LPF (0-3); URINE RBC 0-2 Rare /HPF (0-2); URINE WBC-REFLEX None Seen /HPF (0-5)
[2017-10-23] MEDS ORDERED: AFRIN30 ML NASAL (17:46)
[2017-10-23] MEDS ORDERED: VENTOLIN HFA 1818 GM INH (17:46)
[2017-10-23] MEDS ORDERED: ZOFRAN ODT4 MG PO (17:46)
[2017-10-23 19:04] VITALS: BP 117/53
[2017-12-01] MEDS ORDERED: CYMBALTA30 MG PO (09:00)
[2017-12-01] MEDS ORDERED: BUTRANS1 EACH TRANSDERM (09:00)
[2018-01-08] MEDS ORDERED: VENTOLIN HFA 1818 GM INH (11:19)
[2018-01-08] MEDS ORDERED: LEVAQUIN 500 M500 M2 PO (11:19)
[2018-01-08] MEDS ORDERED: ZOFRAN ODT4 MG DISSOLVE (11:20)
[2018-01-08] MEDS ORDERED: SUBOXONE 2 MG-1 EAC1 TRANSDERM (11:47)
[2018-01-26] MEDS ORDERED: VENTOLIN HFA 1818 GM INH (09:22)
[2018-01-26] MEDS ORDERED: NORCO 5-325 TA1 EACH PO ×2 (09:33→10:08)
[2018-01-26] MEDS ORDERED: TRAMADOL HCL E100 M1 PO ×2 (09:33→10:08)
[2018-01-26] MEDS ORDERED: NEURONTIN 300300 M1 PO (10:08)
[2018-02-19] MEDS ORDERED: BUSPIRONE HCL15 MG PO (09:13)
[2018-02-19] MEDS ORDERED: BUTRANS1 EACH TRANSDERM (09:20)
[2018-05-08] MEDS ORDERED: BACTRIM DS TAB1 EACH PO (09:52)
[2018-05-08] MEDS ORDERED: FLONASE 0.05%50 MCG NASAL (09:53)
[2018-05-08] MEDS ORDERED: BUTRANS1 EACH TRANSDERM (10:19)
[2018-05-08] MEDS ORDERED: BUTRANS1 EAC1 TRANSDERM (10:19)
[2018-05-08] MEDS ORDERED: NEURONTIN 300300 M1 PO (10:19)
[2018-05-23] MEDS ORDERED: MOBIC15 MG PO (09:23)
[2018-05-23] MEDS ORDERED: BUTRANS1 EAC1 TRANSDERM (09:50)
== END 2017-10-23 19:07 | disposition home or self-care (01) ==
LOC: ER 15:33
PROVIDERS: Emergency Medicine
DX: J11.1 Influenza due to unidentified influenza virus with other respiratory manifestations (principal); Z90.710 Acquired absence of both cervix and uterus; Z87.891 Personal history of nicotine dependence; Z88.1 Allergy status to other antibiotic agents; Z88.8 Allergy status to other drugs, medicaments and biological substances

== ENCOUNTER 2017-10-25 11:19 | Inpatient (IN) | payer OTHER ==
[~2017-10-25] VITALS: Ht 165.1 cm; Wt 89.4 kg
[~2017-10-25 11:19] MED LIST changes: +AFRIN30 ML NASAL
[2017-10-25 11:38] VITALS: BP 150/96
[2017-10-25 13:09] LABS: URINE BILIRUBIN NEGATIVE (Negative); URINE BLOOD 1+ (Negative); URINE CLARITY CLEAR; URINE COLOR YELLOW; URINE GLUCOSE-RANDOM* NEGATIVE (Negative); URINE KETONES NEGATIVE (Negative); URINE LEUKOCYTES-REFLEX NEGATIVE (Negative); URINE NITRITE-REFLEX NEGATIVE (Negative); URINE PROTEIN (DIPSTICK) NEGATIVE (Negative); URINE SPECIFIC GRAVITY <= 1.005 (1.005-1.035)
[2017-10-25 13:20] LABS: SQUAMOUS >10 Many /LPF (0-3)
[2017-10-25 13:21] LABS: CASTS None Seen /LPF (None Seen); CRYSTALS None Seen /LPF (None Seen); URINE RBC 3-10 Few /HPF (0-2)
[2017-10-25 13:22] LABS: BACTERIA-REFLEX 1-9 Few /HPF (None Seen); URINE WBC-REFLEX 0-5 Rare /HPF (0-5)
[2017-10-25 15:11] VITALS: BP 141/84
[2017-10-25 20:30] VITALS: BP 137/86
[2017-10-25 23:20] VITALS: BP 130/82
[2017-10-26 04:45] VITALS: BP 124/72
[2017-10-26 08:45] VITALS: BP 138/76
[2017-10-26 21:08] VITALS: BP 134/79
[2017-10-27 04:00] VITALS: BP 131/96
[2017-10-27 10:25] VITALS: BP 132/86
[2017-10-27 16:15] VITALS: BP 121/71
[2017-10-27 19:45] VITALS: BP 119/75
[2017-10-28 04:15] VITALS: BP 149/93
[2017-10-28 08:03] VITALS: BP 155/93
[2017-10-28 10:31] LABS: HEMATOCRIT 38.6 % (37.0-47.0); HEMOGLOBIN 12.9 gm/dL (12.0-15.0); MCHC 33.5 g/dL (28.0-37.0); MCV 95.5 fL (80.0-100.0); RBC 4.04 mil/uL (4.20-5.00); RDW 14.5 % (10.5-14.5); WBC 19.1 thou/uL (4.0-11.0)
[2017-10-28 10:51] LABS: CALCIUM 9.3 mg/dL (8.5-10.1); CREATININE 0.8 mg/dL (0.6-1.0)
[2017-10-28 19:02] VITALS: BP 140/79
[2017-10-29 04:04] VITALS: BP 145/95
[2017-10-29] MEDS ORDERED: LEVAQUIN 500 M500 M2 PO (08:06)
[2017-10-29 08:13] VITALS: BP 138/86
[2017-10-29 10:04] VITALS: BP 138/86
[2017-12-01] MEDS ORDERED: BUTRANS1 EACH TRANSDERM (09:00)
[2017-12-01] MEDS ORDERED: CYMBALTA30 MG PO (09:00)
[2018-01-08] MEDS ORDERED: LEVAQUIN 500 M500 M2 PO (11:19)
[2018-01-08] MEDS ORDERED: VENTOLIN HFA 1818 GM INH (11:19)
[2018-01-08] MEDS ORDERED: ZOFRAN ODT4 MG DISSOLVE (11:20)
[2018-01-08] MEDS ORDERED: SUBOXONE 2 MG-1 EAC1 TRANSDERM (11:47)
[2018-01-26] MEDS ORDERED: VENTOLIN HFA 1818 GM INH (09:22)
[2018-01-26] MEDS ORDERED: NORCO 5-325 TA1 EACH PO ×2 (09:33→10:08)
[2018-01-26] MEDS ORDERED: TRAMADOL HCL E100 M1 PO ×2 (09:33→10:08)
[2018-01-26] MEDS ORDERED: NEURONTIN 300300 M1 PO (10:08)
[2018-02-19] MEDS ORDERED: BUSPIRONE HCL15 MG PO (09:13)
[2018-02-19] MEDS ORDERED: BUTRANS1 EACH TRANSDERM (09:20)
[2018-05-08] MEDS ORDERED: BACTRIM DS TAB1 EACH PO (09:52)
[2018-05-08] MEDS ORDERED: FLONASE 0.05%50 MCG NASAL (09:53)
[2018-05-08] MEDS ORDERED: BUTRANS1 EAC1 TRANSDERM (10:19)
[2018-05-08] MEDS ORDERED: BUTRANS1 EACH TRANSDERM (10:19)
[2018-05-08] MEDS ORDERED: NEURONTIN 300300 M1 PO (10:19)
[2018-05-23] MEDS ORDERED: MOBIC15 MG PO (09:23)
[2018-05-23] MEDS ORDERED: BUTRANS1 EAC1 TRANSDERM (09:50)
== END 2017-10-29 11:49 | disposition home or self-care (01) | DRG 195 ==
LOC: 3W 11:19
PROVIDERS: Family Medicine
DX: J11.00 Influenza due to unidentified influenza virus with unspecified type of pneumonia (principal); J45.909 Unspecified asthma, uncomplicated; J22 Unspecified acute lower respiratory infection; I10 Essential (primary) hypertension; G62.9 Polyneuropathy, unspecified; F17.210 Nicotine dependence, cigarettes, uncomplicated; M47.9 Spondylosis, unspecified; Z88.1 Allergy status to other antibiotic agents; Z91.018 Allergy to other foods
CPT/HCPCS: 10779

== ENCOUNTER → 2017-12-01 | Outpatient (CLI) | payer OTHER ==
[~2017-12-01] VITALS: Ht 165.1 cm; Wt 91.2 kg
[~2017-12-01] MED LIST changes: +BACTRIM DS TAB1 EACH PO; +BUSPIRONE HCL15 MG PO; +BUTRANS1 EAC1 TRANSDERM; +HYDROCODON-ACE1 EA12 PO; +OSELB75 PO; +SUBOXONE 2 MG-1 EAC1 TRANSDERM; +TRAMADOL HCL E100 M1 PO; +ZOFRAN ODT4 MG DISSOLVE
--- NOTE | ~2017-12-01 | HPC ---
[facility] [address] [place] [address] PAIN MANAGEMENT CONSULTATION Name: ALLEN CABRERA Room #: REG Violeta Lopez#: [id number] Admission: 12/01/17 Attend Phys: William Ramsey DO Discharge: Date of : 69 Report #: [id number] THIS REPORT FOR: //name// CC: Benjie Ramsey DATE OF SERVICE: 12/01/2017 HISTORY OF PRESENT ILLNESS: The patient is a 52-year-old female, long treated in the pain clinic; I believe she started care here in 2004. I took over her care sometime around 2009. Last seen in the pain clinic in September of this year. She was having ongoing myofascial pain, cervical radiculopathy. Continued on Butrans 20 mcg, gabapentin 300 mg 4 times a day. Gave her cervical epidural injection for acute exacerbation of cervical radicular symptoms. She returns to the pain clinic today. She tells me she had been quite sick, had been in the hospital, seen in the ER on 10/23/2017 and then admitted on 10/25 through 10/28 for H1N1 flu and lower respiratory tract infection. She went home and was feeling poorly, the first day home, and she fell getting out of bed. She has not fallen since. Fall did exacerbate some axial back pain. Pain is in left greater than right mid back. It is more spasm in nature. Cervical range of motion exercises she is doing daily, which do exacerbate some pain. She has some ongoing cervical radicular symptoms with paresthesia going into the middle fingers. Otherwise, she feels that her current pain medication (Butrans 20 mcg q. 7 days and periodic hydrocodone, 50 tablets typically lasts greater than 2 months) is helpful. Physical exam does show a BMI of 33.4 kilograms per meter squared. Blood pressure 151/93, pulse 79, respirations of 14, room air oxygen saturation 98%. Subjective pain score is 4-5 on a VAS. Cervical range of motion is modestly limited. Positive Lhermitte's. Paresthesia going into the arms and hands, though upper extremity strength is improving. Does have diffuse tenderness and spasm in the thoracic paravertebral muscles. No discrete trigger points noted at this time. Gait is tandem. Lower extremity strength is preserved. She does have pretty good flexion within normal ROM. Last buccal drug swab, random, 09/29/2017 was positive for alprazolam and gabapentin cotinine (nicotine metabolite). Negative for buprenorphine. This is perplexing as she was wearing a somewhat frayed Butrans patch compatible with having been in place for several days. She is again wearing a Butrans patch today. We reviewed the fact that opiate medications are being used to provide analgesia adequate to support activities of daily living, not attempting to achieve a specific pain score on the 0-10 Visual Analog Scale. The current opiate medications are providing sufficient analgesia to allow the patient to [address] [address] PAIN MANAGEMENT CONSULTATION Name: ALLEN CABRERA Room #: REG [facility] Jessica#: [id number] Admission: 12/01/17 Attend Phys: William Ramsey DO Discharge: Date of : 69 Report #: [id number] participate in activities of daily living. The patient is not exhibiting any aberrant behavior suggestive of drug diversion. The patient is not having any adverse reactions to medications. The patient is not suffering from daytime somnolence or mental acuity changes. The patient is managing opiate-induced constipation with appropriate efew-flq-zujkplw agents and dietary considerations. The patient was counseled on concern for caution with operating a motor vehicle while using opiate medications. A physical exam was performed and the patient's functional status was evaluated. All patients with back pain were advised against the bed rest greater than 4 days and were advised to return to normal activities. Pain score assessment was noted and the treatment plan was reviewed with the patient. All current medications, both prescribed and OTC were reviewed and reconciled on the electronic medical record. Tobacco screening was accomplished and smoking cessation was advised when indicated. BMI was noted and diet/exercise modification was recommended for all patients following outside normal parameters. I reviewed with the patient today their responsibilities to safeguard prescription medications, reviewed their responsibility to utilize medications only as prescribed by the physician. They are to seek and receive pain medications only from 1 physician group ( [facility]). They are to use 1 pharmacy and keep the clinic informed if they change pharmacies. Their responsibilities include making followup visits in a timely fashion and to avoid abrupt discontinuation of medication usage. Their responsibilities further include bringing their medications (bottles from the pharmacy with residual pills) to the visit for possible confirmation of pill counts and the patient understands it is their responsibility to submit to random drug screens to ensure both that the medications prescribed are present, and that no other controlled substances are present. All prescriptions provided today were generated electronically. ASSESSMENT: Symptomatic cervical radiculopathy by clinical exam and history, axial back pain, component of what appears to be some myofascial pain component. We will start the patient on Cymbalta low dose 30 mg daily and see if this helps. Continue Butrans 20 mcg unchanged. We will seek authorization for cervical epidural injection at next visit to help with acute recurrent cervical radicular symptoms including positive neural tensioning (Lhermitte sign) and subjective paresthesia into the middle fingers. <ELECTRONICALLY SIGNED> By: William Ramsey DO 12/04/17 0813 1700 1912 William Ramsey DO /nt
[2017-12-01 08:41] VITALS: BP 151/93
== END ==
LOC: PAIN 06:51
DX: M54.12 Radiculopathy, cervical region (principal); M54.9 Dorsalgia, unspecified; M79.1 Myalgia; R20.2 Paresthesia of skin

== ENCOUNTER 2017-12-27 14:07 | Emergency (ER) | payer OTHER ==
[~2017-12-27] VITALS: Ht 165.1 cm; Wt 79.4 kg
[~2017-12-27 14:07] MED LIST changes: -BACTRIM DS TAB1 EACH PO; -BUSPIRONE HCL15 MG PO; -BUTRANS1 EAC1 TRANSDERM; -HYDROCODON-ACE1 EA12 PO; -OSELB75 PO; -SUBOXONE 2 MG-1 EAC1 TRANSDERM; -TRAMADOL HCL E100 M1 PO; -ZOFRAN ODT4 MG DISSOLVE
[2017-12-27 15:07] LABS: ABSOLUTE NEUTROPHILS 4.4 thou/uL (1.4-8.2); BASOPHILS 0.8 % (0.0-2.0); EOSINOPHILS 1.8 % (0.0-3.0); HEMATOCRIT 41.2 % (37.0-47.0); HEMOGLOBIN 14.2 gm/dL (12.0-15.0); LYMPHOCYTES 20.2 % (24.0-44.0); MCH 32.7 pg (26.0-34.0); MCHC 34.4 g/dL (28.0-37.0); MCV 95.1 fL (80.0-100.0); MONOCYTES 9.8 % (1.0-8.0); PLATELET COUNT 236 thou/uL (150-400); POLYS 67.4 % (36.0-66.0); RBC 4.34 mil/uL (4.20-5.00); RDW 14.2 % (10.5-14.5); WBC 6.5 thou/uL (4.0-11.0)
[2017-12-27 15:15] LABS: CREATININE 0.7 mg/dL (0.6-1.0); POTASSIUM 3.6 mmol/L (3.5-5.1)
[2017-12-27 15:23] LABS: ALBUMIN 3.7 g/dL (3.4-5.0); DIRECT BILIRUBIN 0.1 mg/dL (<0.1-0.3); TOTAL BILIRUBIN 0.5 mg/dL (<0.1-1.0); TOTAL PROTEIN 7.3 g/dL (6.4-8.2)
[2017-12-27] MEDS ORDERED: ZOFRAN ODT4 MG PO (18:31)
[2017-12-27 18:59] VITALS: BP 109/61
== END 2017-12-27 19:09 | disposition home or self-care (01) ==
LOC: ER 14:07
PROVIDERS: Emergency Medicine
DX: R11.2 Nausea with vomiting, unspecified (principal); R50.9 Fever, unspecified; M79.1 Myalgia; F17.210 Nicotine dependence, cigarettes, uncomplicated; Z88.1 Allergy status to other antibiotic agents

== ENCOUNTER 2017-12-28 09:53 | Inpatient (IN) | payer OTHER ==
[~2017-12-28] VITALS: Ht 165.1 cm; Wt 92.1 kg
[2017-12-28 09:54] VITALS: BP 152/86
[2017-12-28 10:30] LABS: MCH 32.7 pg (26.0-34.0); MCHC 34.2 g/dL (28.0-37.0); MCV 95.6 fL (80.0-100.0); PLATELET COUNT 215 thou/uL (150-400); RBC 4.29 mil/uL (4.20-5.00); RDW 14.3 % (10.5-14.5); WBC 5.7 thou/uL (4.0-11.0)
[2017-12-28 10:30] LABS: URINE BILIRUBIN NEGATIVE (Negative); URINE BLOOD 3+ (Negative); URINE CLARITY CLEAR; URINE COLOR YELLOW; URINE GLUCOSE-RANDOM* NEGATIVE (Negative); URINE KETONES TRACE (Negative); URINE LEUKOCYTES NEGATIVE (Negative); URINE NITRITE NEGATIVE (Negative); URINE PROTEIN (DIPSTICK) NEGATIVE (Negative); URINE SPECIFIC GRAVITY 1.015 (1.005-1.035); URINE UROBILINOGEN 0.2 E.U./dl (0.2-1.0)
[2017-12-28 10:37] LABS: CALCIUM 8.8 mg/dL (8.5-10.1); CREATININE 0.8 mg/dL (0.6-1.0); POTASSIUM 3.9 mmol/L (3.5-5.1)
[2017-12-28 10:38] LABS: BACTERIA 1-9 Few /HPF (None Seen); MUCUS 0-3 Light strn/LPF (None Seen); SQUAMOUS >10 Many /LPF (0-3); URINE RBC 3-10 Few /HPF (0-2)
[2017-12-28 10:39] LABS: CASTS None Seen /LPF (None Seen); CRYSTALS None Seen /LPF (None Seen); URINE WBC 0-5 Rare /HPF (0-5)
[2017-12-28 10:44] LABS: ALBUMIN 3.7 g/dL (3.4-5.0); DIRECT BILIRUBIN 0.1 mg/dL (<0.1-0.3); TOTAL BILIRUBIN 0.4 mg/dL (<0.1-1.0); TOTAL PROTEIN 7.2 g/dL (6.4-8.2)
[2017-12-28 10:50] LABS: ABSOLUTE NEUTROPHILS 3.8 thou/uL (1.4-8.2); ATYPICAL LYMPHS 6 %; PLATELET ESTIMATE NORMAL
[2017-12-28 13:53] LABS: APTT 33.1 Seconds (24.5-32.8); PROTIME 10.2 Seconds (9.3-11.4)
[2017-12-28 14:00] VITALS: BP 152/86
[2017-12-28 14:59] LABS: CSF CLARITY CLEAR; CSF COLOR COLORLESS; VOLUME 12 ml
[2017-12-28 15:04] LABS: CSF GLUCOSE 52 mg/dL (40-70); CSF PROTEIN 26 mg/dL (15-45)
[2017-12-28 15:06] LABS: CSF RBC 0 /mm3; CSF WBC 2 /mm3 (0-10)
[2017-12-28 19:28] VITALS: BP 163/88
[2017-12-29 01:07] VITALS: BP 93/61
[2017-12-29 04:28] VITALS: BP 145/72
[2017-12-29 05:58] LABS: HEMATOCRIT 38.8 % (37.0-47.0); HEMOGLOBIN 13.1 gm/dL (12.0-15.0); MCH 32.8 pg (26.0-34.0); MCHC 33.9 g/dL (28.0-37.0); MCV 96.7 fL (80.0-100.0); RBC 4.01 mil/uL (4.20-5.00); RDW 14.2 % (10.5-14.5)
[2017-12-29 06:08] LABS: CALCIUM 8.3 mg/dL (8.5-10.1); CREATININE 0.8 mg/dL (0.6-1.0); POTASSIUM 3.4 mmol/L (3.5-5.1)
[2017-12-29 07:50] VITALS: BP 106/70
[2017-12-29] MEDS ORDERED: BUTRANS1 EACH TRANSDERM (08:16)
[2017-12-29] MEDS ORDERED: CYMBALTA30 MG PO (08:16)
[2017-12-29 19:02] VITALS: BP 139/81
[2017-12-30 03:13] VITALS: BP 82/46
[2017-12-30 07:45] VITALS: BP 117/67
[2017-12-30 11:19] LABS: HEMATOCRIT 36.6 % (37.0-47.0); HEMOGLOBIN 12.4 gm/dL (12.0-15.0); MCH 32.2 pg (26.0-34.0); MCHC 33.8 g/dL (28.0-37.0); MCV 95.3 fL (80.0-100.0); RBC 3.84 mil/uL (4.20-5.00); RDW 14.4 % (10.5-14.5); WBC 5.3 thou/uL (4.0-11.0)
[2017-12-30 19:50] VITALS: BP 116/66
[2017-12-30 23:56] VITALS: BP 130/62
[2017-12-31 03:20] VITALS: BP 142/82
[2017-12-31 07:45] VITALS: BP 101/56
[2017-12-31] MEDS ORDERED: OSELB75 PO (10:30)
[2017-12-31 10:59] VITALS: BP 101/56
[2017-12-31 12:33] VITALS: BP 101/56
[2017-12-31 22:07] LABS: ANTI-EBNA >600.0 U/mL (0.0-17.9); ANTI-VCA/IgM <36.0 U/mL (0.0-35.9); EBV EARLY ANTIGEN <9.0 U/mL (0.0-8.9)
== END 2017-12-31 12:52 | disposition home or self-care (01) | DRG 194 ==
LOC: ER 09:53 → 4E 12:38 → EROBS 12:38 → 4E 14:57
PROVIDERS: Family Medicine; Nurse Practitioner
DX: J10.1 Influenza due to other identified influenza virus with other respiratory manifestations (principal); N17.9 Acute kidney failure, unspecified; M47.896 Other spondylosis, lumbar region; J98.01 Acute bronchospasm; R11.10 Vomiting, unspecified; Z88.6 Allergy status to analgesic agent; Z79.1 Long term (current) use of non-steroidal anti-inflammatories (NSAID); Z88.8 Allergy status to other drugs, medicaments and biological substances; Z91.048 Other nonmedicinal substance allergy status; Z90.710 Acquired absence of both cervix and uterus
CPT/HCPCS: 10084

== ENCOUNTER → 2018-02-08 | Outpatient (CLI) | payer OTHER ==
[~2018-02-08] VITALS: Ht 165.1 cm; Wt 83.1 kg
[~2018-02-08] MED LIST changes: +HYDROCODON-ACE1 EA12 PO; +OSELB75 PO; +SUBOXONE 2 MG-1 EAC1 TRANSDERM; +TRAMADOL HCL E100 M1 PO; +ZOFRAN ODT4 MG DISSOLVE
--- NOTE | ~2018-02-08 | HPC ---
[facility] [place] [address] PAIN MANAGEMENT CONSULTATION Name: ALLEN CABRERA Room #: REG [facility] Jessica#: [id number] Admission: 02/08/18 Attend Phys: Willima Ramsey DO Discharge: Date of : 69 Report #: [id number] THIS REPORT FOR: //name// CC: Benjie Ramsey The patient is a 52-year-old female, prior seen in the pain clinic on 01/26/2018, diagnosed with acute exacerbation of SI mediated pain, ongoing axial back pain, lumbar radiculopathy, chronic pain syndrome requiring complex medication management. We sought authorization for bilateral SI injection today. She presents to pain clinic today for this. Notes ongoing pain, continues to be problematic, rates it a 10 on a VAS. Pain is across the low back, SI area, exacerbated with standing, flexing and bending. Positive Li test. Positive Gaenslen's. Positive pelvic distraction. Right appears to be a little worse than left. ASSESSMENT: Symptomatic sacroiliac joint dysfunction by clinical exam and history. PROCEDURE: Bilateral SI joint injection under fluoroscopy. PROCEDURE NOTE: After written and informed consent was obtained including risk of infection, nerve trauma, increased pain and weakness, the patient wishes to proceed. The patient was taken to the fluoroscopy suite, placed in the prone position. The sacroiliac joint was visualized using the C-arm, turned in an oblique fashion to align the joint. The skin overlying the area was cleansed with ChloraPrep. Skin wheal with Xylocaine was raised. A 22 gauge spinal needle was inserted into the inferior aspect of the joint. A low volume extension tubing was then attached to the needle after the stylet was removed. Negative aspiration was accomplished. A 1 mL of Omnipaque was injected which showed spread within the SI joint. 40 mg triamcinolone plus 2 mL of 0.5% preservative-free bupivacaine was injected into the joint. Needle was removed. Attention was then turned to the contralateral joint which was treated in an identical fashion. After both needles were removed the prep was washed off. Two Band-Aids were applied over the puncture sites. The patient was allowed to ambulate to the recovery room, monitored for an appropriate period of time, discharged in good and stable condition. Fluoroscopy time was 10 seconds. The patient was discharged in good and stable condition, noting about 70% improvement in baseline pain, pain was down to a 3 on a VAS. Follow up next week to evaluate medication usage. <ELECTRONICALLY SIGNED> By: William Ramsey DO 02/09/18 0656 0948 1337 William Ramsey DO /nt
[2018-02-08 08:44] VITALS: BP 158/93
== END | disposition home or self-care (01) ==
LOC: PAIN 06:58
DX: M53.3 Sacrococcygeal disorders, not elsewhere classified (principal); G89.4 Chronic pain syndrome; M54.16 Radiculopathy, lumbar region; G43.909 Migraine, unspecified, not intractable, without status migrainosus; G47.33 Obstructive sleep apnea (adult) (pediatric); K21.9 Gastro-esophageal reflux disease without esophagitis; Z79.891 Long term (current) use of opiate analgesic; Z87.891 Personal history of nicotine dependence; Z88.8 Allergy status to other drugs, medicaments and biological substances; Z79.899 Other long term (current) drug therapy; Z87.09 Personal history of other diseases of the respiratory system

== ENCOUNTER 2018-02-11 17:12 | Emergency (ER) | payer OTHER ==
[~2018-02-11] VITALS: Ht 165.1 cm; Wt 79.4 kg
[~2018-02-11 17:12] MED LIST changes: -HYDROCODON-ACE1 EA12 PO
[2018-02-11] MEDS ORDERED: XANAX 0.5 MG0.5 MG PO ×2 (17:24→18:58)
[2018-02-11] MEDS ORDERED: HYDROCODON-ACE1 EA12 PO (18:58)
[2018-02-11 19:26] VITALS: BP 157/91
== END 2018-02-11 19:30 | disposition home or self-care (01) ==
LOC: ER 17:12
DX: G89.29 Other chronic pain (principal); M54.5 Low back pain; F41.9 Anxiety disorder, unspecified; F17.210 Nicotine dependence, cigarettes, uncomplicated; Z88.1 Allergy status to other antibiotic agents; Z88.8 Allergy status to other drugs, medicaments and biological substances

== ENCOUNTER 2018-02-12 20:05 | Emergency (ER) | payer OTHER ==
[~2018-02-12] VITALS: Ht 172.7 cm; Wt 81.7 kg
[~2018-02-12 20:05] MED LIST changes: +HYDROCODON-ACE1 EA12 PO
[2018-02-12 21:15] VITALS: BP 169/102
== END 2018-02-12 21:15 | disposition home or self-care (01) ==
LOC: ER 20:05
DX: G89.29 Other chronic pain (principal); M54.5 Low back pain; F41.9 Anxiety disorder, unspecified; F17.210 Nicotine dependence, cigarettes, uncomplicated; Z88.6 Allergy status to analgesic agent; Z90.710 Acquired absence of both cervix and uterus; Z88.1 Allergy status to other antibiotic agents; Z88.8 Allergy status to other drugs, medicaments and biological substances

== ENCOUNTER → 2018-02-19 | Outpatient (CLI) | payer OTHER ==
[~2018-02-19] VITALS: Ht 165.1 cm; Wt 81.0 kg
[~2018-02-19] MED LIST changes: +BUSPIRONE HCL15 MG PO
--- NOTE | ~2018-02-19 | HPC ---
[facility] [address] [place] [address] PAIN MANAGEMENT CONSULTATION Name: ALLEN CABRERA Room #: REG [facility] Sheri.#: [id number] Admission: 02/19/18 Attend Phys: William Ramsey DO Discharge: Date of : 69 Report #: [id number] THIS REPORT FOR: //name// CC: Benjie Ramsey DATE OF SERVICE: 02/19/2018 The patient is an unfortunate 52-year-old female, long treated for axial back pain, history of lumbar radiculopathy, SI joint dysfunction requiring complex medication management. Last seen in pain clinic 02/08/2018. Did bilateral SI joint injections. She has had ongoing axial back pain. Multiple anxiety and stress concerns. Was actually seen in the ER, both 02/11/2018 and 02/12/2018 with ongoing anxiety and axial pain. Returns to pain clinic today, rating her pain 8 on a VAS. She is hypertensive today, blood pressure 170/106, pulse 87. Complaining of pain that she rates 8-10 on a VAS primarily in the low back. PHYSICAL EXAMINATION: However, shows a 52-year-old female, BMI is 29.7 kilograms per meter squared. Rises from chair using armrest. Gait is tandem. She tells me she can walk 20-30 minutes. Right hamstring is "sore," however, lower extremity strength is generally preserved. Patellar and Achilles reflexes are diminished, but symmetric. Passive rotation of the hip exacerbates pain into the hips with rotation, though Li and Gaenslen's tests are negative. Lumbar flexion is good to 90 degrees. Some subjective low back pain but no discrete trigger points or muscle spasm is appreciated on physical exam. ASSESSMENT: Chronic axial back pain, lumbar radiculopathy, sacroiliac joint dysfunction requiring complex medication management. RECOMMENDATION: Long discussion with the patient today. She was seen for greater than 25 minutes. Ultimately, she was doing much better using a Butrans patch at 20 mcg. This did cause some cutaneous disruption. We rotated multiple agents including extended release tramadol, hydrocodone. We tried Suboxone initially, all opioid agents have had suboptimal dwindling efficacy. RECOMMENDATIONS: After a long and thoughtful discussion with the patient today, we elected to rotate back to Butrans 20 mcg q. 7 days. She has done well on this in the past, has had less issues. Strongly encouraged continue smoking cessation. The patient had been prescribed by her general manager farm physician, Dr. Palomo, Xanax, which she takes p.r.n. He also recently prescribed BuSpar. I strongly recommend she take the BuSpar and try and limit [place] [address] PAIN MANAGEMENT CONSULTATION Name: PIPOALLEN RIDLEY Room #: REG [facility] Lopez#: [id number] Admission: 02/19/18 Attend Phys: William Ramsey DO Discharge: Date of : 69 Report #: [id number] gabapentin unchanged. The patient has a few of her hydrocodone tablets left. I gave a prescription for 75 tablets, which was released on 02/08/2018. She hopefully will not require much of this with resumption of the Butrans. However, I have taken the liberty of writing for 3 months of the aforementioned patch. I have her follow up with Dr. Prosper Ramsey. Discharged in good and stable condition. <ELECTRONICALLY SIGNED> By: William Ramsey DO 02/21/18 0800 1056 1454 William Ramsey DO /nt
[2018-02-19 09:02] VITALS: BP 172/106
== END ==
LOC: PAIN 07:10
DX: G89.29 Other chronic pain (principal); M54.16 Radiculopathy, lumbar region; M54.5 Low back pain; F11.90 Opioid use, unspecified, uncomplicated; Z79.899 Other long term (current) drug therapy; Z87.891 Personal history of nicotine dependence

== ENCOUNTER → 2018-03-19 | Outpatient (CLI) | payer OTHER ==
[~2018-03-19] VITALS: Ht 165.1 cm; Wt 83.6 kg
--- NOTE | ~2018-03-19 | HPC ---
[facility] [place] [address] PAIN MANAGEMENT CONSULTATION Name: ALLEN ACBRERA Room #: REG [facility] [place].#: [id number] Admission: 03/19/18 Attend Phys: William Ramsey DO Discharge: Date of : 69 Report #: [id number] THIS REPORT FOR: //name// CC: Benjie Ramsey DATE OF SERVICE: 03/19/2018 The patient is a 52-year-old female, well known to pain clinic, typically treated for axial back pain, lumbar radiculopathy, SI joint dysfunction requiring complex medication management. Last seen in the pain clinic 02/19/2018. Last visit after multiple drug rotations and trials we elected to resume use of Butrans 20 mcg q.7 days. The patient has had the best efficacy with this agent. There was concern for topical irritation with this. She returns to pain clinic today. She has been on the agent now for nearly a month. She is pleased to note that her pain has dramatically improved. She rates her subjective pain score a 3-4 on a VAS. I personally inspected the area on her left deltoid where she had had last week's Butrans patch, there is trace if any erythema. Area around the right deltoid where the current patch is does not appear to be erythematous. PHYSICAL EXAMINATION: Otherwise unchanged. A 52-year-old female, BMI is 30.7 kg per meter squared. Blood pressure is modestly elevated 157/104, pulse 87, respirations 16. Alert and oriented to person, place and time, judged to be a reasonable historian. Rises from chair using armrest. Gait is modestly antalgic. Complains of subjective pain, low back and hips. She was concerned about a kidney infection, though she has no costovertebral angle tenderness, denies any suprapubic tenderness, dysuria, frequency or malodorous urine. We reviewed the fact that opiate medications are being used to provide analgesia adequate to support activities of daily living, not attempting to achieve a specific pain score on the 0-10 Visual Analog Scale. The current opiate medications are providing sufficient analgesia to allow the patient to participate in activities of daily living. The patient is not exhibiting any aberrant behavior suggestive of drug diversion. The patient is not having any adverse reactions to medications. The patient is not suffering from daytime somnolence or mental acuity changes. The patient is managing opiate-induced constipation with appropriate lyru-ecl-hhzqufc agents and dietary considerations. The patient was counseled on concern for caution with operating a motor vehicle while using opiate medications. A physical exam was performed and the patient's functional status was evaluated. All patients with back pain were advised against the bed rest greater than [address] [place] [address] PAIN MANAGEMENT CONSULTATION Name: DEBORAHALLENDELL DUNCAN Room #: REG CL Jessica#: [id number] Admission: 03/19/18 Attend Phys: William Ramsey DO Discharge: Date of : 69 Report #: [id number] days and were advised to return to normal activities. Pain score assessment was noted and the treatment plan was reviewed with the patient. All current medications, both prescribed and OTC were reviewed and reconciled on the electronic medical record. Tobacco screening was accomplished and smoking cessation was advised when indicated. BMI was noted and diet/exercise modification was recommended for all patients following outside normal parameters. I reviewed with the patient today their responsibilities to safeguard prescription medications, reviewed their responsibility to utilize medications only as prescribed by the physician. They are to seek and receive pain medications only from 1 physician group ( [facility]). They are to use 1 pharmacy and keep the clinic informed if they change pharmacies. Their responsibilities include making followup visits in a timely fashion and to avoid abrupt discontinuation of medication usage. Their responsibilities further include bringing their medications (bottles from the pharmacy with residual pills) to the visit for possible confirmation of pill counts and the patient understands it is their responsibility to submit to random drug screens to ensure both that the medications prescribed are present, and that no other controlled substances are present. All prescriptions provided today were generated electronically. ASSESSMENT: Axial back pain, myofascial pain component. The patient doing very well on current medication. RECOMMENDATION: Continue Butrans 20 mcg q.7 days. We will have the patient follow up with one of the [facility] as needed. <ELECTRONICALLY SIGNED> By: William Ramsey DO 03/21/18 0734 [id number] William Ramsey DO /nt
[2018-03-19 10:18] VITALS: BP 157/104
== END ==
LOC: PAIN 07:55
DX: M54.16 Radiculopathy, lumbar region (principal); M79.1 Myalgia; Z79.899 Other long term (current) drug therapy

== ENCOUNTER → 2018-08-07 | Outpatient (CLI) | payer OTHER ==
[~2018-08-07] VITALS: Ht 165.1 cm; Wt 93.2 kg
[~2018-08-07] MED LIST changes: +BACTRIM DS TAB1 EACH PO; +BUTRANS1 EAC1 TRANSDERM; +MEDROLDOSEPACK PO; +VITAMIN D5000 UNIT PO
--- NOTE | ~2018-08-07 | HPC ---
[facility] [place] [address] PAIN MANAGEMENT CONSULTATION Name: ALLEN CABRERA Room #: REG Violeta Lopez#: [id number] Admission: 08/07/18 Attend Phys: Prosper Ramsey DO Discharge: Date of : 69 Report #: [id number] THIS REPORT FOR: //name// CC: Prosper Palomo MD DATE OF SERVICE: 08/07/2018 CHIEF COMPLAINT: Low back pain, bilateral lower extremity pain, chronic left arm pain, generalized body pain and generalized arthralgias. HISTORY OF PRESENT ILLNESS: As you know, the patient is a very unfortunate 52-year-old female with longstanding history of low back pain, bilateral lower extremity pain, treated for lumbar radiculopathy and bilateral SI joint dysfunction. She also complains of generalized pain disorder consistent with fibromyalgia-like symptoms. She has returned today in followup visit stating that she is planning to undergo evaluation with Rheumatology, which I agree with wholeheartedly. Her symptoms do appear to be related to myofascial syndrome such as fibromyalgia and treatment must be adjusted if this is the case. She returns today in followup visit stating that the Butrans-gabapentin combination is working well for pain control but has been much more emotionally labile since they have started her on prednisone and some issues with family members. She returns to gain refills of gabapentin. Continue on a Butrans patch and to discuss the addition of a possible pain medication/antidepressant. ALLERGIES: TAPE, ACETAMINOPHEN and CEFTRIAXONE. CURRENT MEDICATIONS: Meloxicam, gabapentin, buprenorphine, fluticasone, Bactrim-DS, buspirone, alprazolam, hydrocodone, albuterol, amlodipine, losartan and atorvastatin. SOCIAL HISTORY: The patient is a nonsmoker. Denies IV or illicit drug use. Denies any chronic alcohol use. She is unaccompanied today. IMAGING DATA: There is no new imaging available. PHYSICAL EXAMINATION: VITAL SIGNS: Blood pressure 171/114, pulse is 80 and respiratory rate 20 and unlabored. The patient is 100% on room air. Height 5 feet 5 inches tall, weight 205.5 pounds and BMI calculated 34.2. GENERAL: Well-developed, well-nourished, well-hydrated exogenously obese 52-year-old female, appearing much older than stated age, placing current pain score at around 6/10. HEENT: Normocephalic and atraumatic. Pupils equal, round and reactive to light. [place] [address] PAIN MANAGEMENT CONSULTATION Name: ALLEN CABRERA Room #: REG [facility].#: [id number] Admission: 08/07/18 Attend Phys: Prosper Ramsey DO Discharge: Date of : 69 Report #: [id number] EXTREMITIES: Show no clubbing, no cyanosis and no edema. MUSCULOSKELETAL: The patient has a modestly antalgic gait. Muscle bulk and tone is equal and symmetrical in lower extremities. Seated straight leg raising negative. Supine straight leg raising negative. Li's test negative. Modified Gaenslen's positive for axial low back pain. She has palpatory tenderness of 16/18 tender points indicative of myofascial pain. There are no gross abnormalities of the weightbearing joints or joints in the hands, wrists or elbows. ASSESSMENT: 1. Chronic lumbar radiculopathy. 2. Mild facet arthropathy of the lumbar spine. 3. Mild lumbar degeneration. 4. Myofascial pain. 5. Essential hypertension, poorly controlled. 6. Generalized body pain. 7. Chronic intractable pain. PLAN: 1. The patient has returned today in followup visit requesting refill on medications in the form of Butrans and gabapentin. Despite these medications, the patient is complaining of pain score around 6/10. Her pain is generalized in nature, does not appear to be related to the lumbar radicular symptoms. She has been treated in the past. I am in agreement with sending the patient to Rheumatology for evaluation. Given the findings on physical exam today, I would expect the patient to have a diagnosis of fibromyalgia. I do not see any indication of rheumatologic issues by gross evaluation. The patient indicates she has an elevated sed rate, which has multiple sources that can lead to this single finding including just an inflammatory process in general. We agree with the referral to Rheumatology and await their findings. 2. The patient's blood pressure is highly elevated today. Blood pressure is 171/114. I have advised the patient to follow up with Dr. Zeb Palomo, her primary care physician, to make adjustments in medication management. I believe she will need to be on an antihypertensive at a higher level to control this blood pressure. For completeness sake, we reviewed with the patient her blood pressure at last visit, which was elevated as well at 150/100 indicating adjustments need to be addressed as quickly as possible. We will defer to Dr. Benjie Palomo for adjustments in this medication. 3. The patient was provided a prescription of gabapentin 300 mg dose. She is taking two tabs p.o. b.i.d. and I have given the patient #120 tablets to continue this dosing with 1 refill, 2 months' worth of medication. I have advised the patient there is a possibility this will need to be escalated based on whatever findings come from the rheumatologic evaluation. If fibromyalgia is confirmed, we will need to escalate the neuropathic pain medications and reduce opioids as opioids are relatively contraindicated in fibromyalgia patients as they show no improvement in symptoms. [facility] [address] [place] [address] PAIN MANAGEMENT CONSULTATION Name: ALLEN CABRERA Room #: REG [facility] Jessica#: [id number] Admission: 08/07/18 Attend Phys: Prosper Ramsey DO Discharge: Date of : 69 Report #: [id number] 4. The patient was provided refill prescription of Butrans 20 mcg patch, this is being utilized for chronic low back symptoms. This may also need to be adjusted if her diagnoses is altered to fibromyalgia as this medication shown to be ineffective at treating that type of symptom degeneration. We will continue on the Butrans at this point and we will make adjustments based on rheumatologic evaluation. She was given prescriptions of #4 Butrans 20 mcg patches with 1 refill, 2 months' worth of medication. 5. We reviewed the fact that opiate medications are being used to provide analgesia adequate to support activities of daily living, not attempting to achieve a specific pain score on the 0-10 Visual Analog Scale. The current opiate medications are providing sufficient analgesia to allow the patient to participate in activities of daily living. The patient is not exhibiting any aberrant behavior suggestive of drug diversion. The patient is not having any adverse reactions to medications. The patient is not suffering from daytime somnolence or mental acuity changes. The patient is managing opiate-induced constipation with appropriate ryry-mvw-amjeiii agents and dietary considerations. The patient was counseled on concern for caution with operating a motor vehicle while using opiate medications. A physical exam was performed and the patient's functional status was evaluated. All patients with back pain were advised against the bed rest greater than 4 days and were advised to return to normal activities. Pain score assessment was noted and the treatment plan was reviewed with the patient. All current medications, both prescribed and OTC were reviewed and reconciled on the electronic medical record. Tobacco screening was accomplished and smoking cessation was advised when indicated. BMI was noted and diet/exercise modification was recommended for all patients following outside normal parameters. I reviewed with the patient today their responsibilities to safeguard prescription medications, reviewed their responsibility to utilize medications only as prescribed by the physician. They are to seek and receive pain medications only from 1 physician group ( [facility]). They are to use 1 pharmacy and keep the clinic informed if they change pharmacies. Their responsibilities include making followup visits in a timely fashion and to avoid abrupt discontinuation of medication usage. Their responsibilities further include bringing their medications (bottles from the pharmacy with residual pills) to the visit for possible confirmation of pill counts and the patient understands it is their responsibility to submit to random drug screens to ensure both that the medications prescribed are present, and that no other controlled substances are present. All prescriptions provided today were generated electronically. 6. The patient is describing increasing depression with her current condition, lack of capability of going about any activities of daily living due to pain and multiple issues with family members, specifically her daughter who apparently has methamphetamine addiction. We will adjust her medications by adding [address] [address] PAIN MANAGEMENT CONSULTATION Name: ALLEN CABRERA Room #: REG [place]IL[place] Lopez#: [id number] Admission: 08/07/18 Attend Phys: Prosper Ramsey DO Discharge: Date of : 69 Report #: [id number] Cymbalta at 30 mg dose and this will help with not only improving pain but may also help with depression. She will take 30 mg dose for 7 nights and then increase to 60 mg dose. She is to discontinue all other antidepressant medications while utilizing Cymbalta. She was given this prescription with one refill. She will follow up with her PCP for possible referral for psychiatric evaluation. 7. We will see the patient back in followup visit in 2 months. At that time, the patient will have completed her rheumatologic evaluation and we will make adjustments in medication therapy appropriately. <ELECTRONICALLY SIGNED> By: Prosper Ramsey DO 08/08/18 1207 [id number] Prosper Ramsey DO /nt
[2018-08-07 09:11] VITALS: BP 171/114
== END | disposition home or self-care (01) ==
LOC: PAIN 08:21
DX: M51.16 Intervertebral disc disorders with radiculopathy, lumbar region (principal); M12.88 Other specific arthropathies, not elsewhere classified, other specified site; M79.18 Myalgia, other site; I10 Essential (primary) hypertension; G89.29 Other chronic pain; E66.9 Obesity, unspecified; Z88.8 Allergy status to other drugs, medicaments and biological substances; Z91.09 Other allergy status, other than to drugs and biological substances; Z79.899 Other long term (current) drug therapy; Z68.34 Body mass index [BMI] 34.0-34.9, adult

== ENCOUNTER 2018-09-17 11:12 | Inpatient (IN) | payer OTHER ==
[~2018-09-17] VITALS: Ht 165.1 cm; Wt 92.6 kg
--- NOTE | ~2018-09-17 | HPC ---
[facility] [place] [address] PAIN MANAGEMENT CONSULTATION Name: ALLEN CABRERA Room #: 417-I ADM IN M.R.#: [id number] Admission: 09/17/18 Attend Phys: Benjie Palomo MD Discharge: Date of : 69 Report #: [id number] THIS REPORT FOR: //name// CC: Benjie Palomo MD DATE OF SERVICE: 09/17/2018 CHIEF COMPLAINT: Right low back pain. HISTORY OF PRESENT ILLNESS: As you know, the patient is a 53-year-old female who has been followed by [facility] for an extended period of time for chronic back pain issues and also suffering from chronic left arm pain. She was last seen in our clinic 08/07/2018 where she received refill of medications for her chronic back symptoms, bilateral SI joint dysfunction and left arm pain. The patient carries a diagnosis of chronic lumbar radiculopathy, mild intervertebral disk changes, mild facet arthropathy, mild lumbosacral spondylosis with suspected radicular symptoms. The patient was admitted to the hospital after 3 days' worth of increasing pain. No inciting injury or trauma. Evaluation of the lumbar spine shows no significant changes in her imaging studies. All findings appear to be similar to previous imaging studies that we have available here today. There is a small broad-based disk osteophyte complex at T12-L1, small broad-based disk bulge at L3-L4, L4-L5 without significant central canal or neural foraminal stenosis. There is some moderate left-sided neural foraminal narrowing at L4-L5 due to this small disk bulge, though the patient is having symptoms only on the right. We have been requested by the primary team to provide the patient with an epidural injection in hopes of improving pain prior to her discharge. ALLERGIES: ADHESIVE TAPE, ACETAMINOPHEN, CEFTRIAXONE. CURRENT MEDICATIONS: Meloxicam, gabapentin, buprenorphine, fluticasone, Bactrim-DS, buspirone, alprazolam, hydrocodone, albuterol, amlodipine, losartan and atorvastatin. SOCIAL HISTORY: She is a nonsmoker. Denies IV or illicit drug use. Denies any chronic alcohol use. She is an inpatient admitted yesterday for ongoing pain issues. IMAGING DATA: CT lumbar spine obtained on 09/17/2018 shows small broad-based disk osteophyte complex, T12-L1. No central canal neural foraminal stenosis. There is broad-based disk bulging at L3-L4 and L4-L5 classified as small without significant central canal stenosis. There is moderate left neural foraminal narrowing at the L4-L5 level. [place] [address] PAIN MANAGEMENT CONSULTATION Name: ALLEN CABRERA Room #: 417-I [facility] IN M.R.#: [id number] Admission: 09/17/18 Attend Phys: Benjie Palomo MD Discharge: Date of : 69 Report #: [id number] PHYSICAL EXAMINATION: GENERAL: Well-developed, well-nourished, well-hydrated exogenously obese 53-year-old female appearing stated age, placing pain today at around 7/10-10/10, describes the pain as aching, burning, stabbing. HEENT: Normocephalic, atraumatic. Pupils equal, round, reactive to light. Extraocular muscles are intact. LUNGS: Clear, no wheeze, rhonchi or rales. CARDIOVASCULAR: Regular. No appreciable gallop or rub. ABDOMEN: Soft, obese, nontender. EXTREMITIES: Show no clubbing, no cyanosis, no edema. MUSCULOSKELETAL: Muscle bulk and tone is symmetrical in lower extremities. Seated straight leg raising negative. Supine straight leg raising negative. Li's test negative. Modified Gaenslen's positive for some axial back pain. There is palpatory tenderness over the paraspinal musculature of the lumbar spine, right-sided. ASSESSMENT: 1. Suspected lumbar radiculopathy. 2. Mild intervertebral disk changes. 3. Small broad-based disk bulging at 3 levels. 4. Moderate left neural foraminal narrowing. 5. Mild lumbosacral spondylosis with suspected radicular symptoms. 6. Intractable pain. PLAN: 1. The patient has been referred to the [facility] Management Clinic as an inpatient to undergo a lumbar epidural injection under fluoroscopic guidance to determine if her symptoms would be amenable to such procedures. We have reviewed with the patient the findings of her CT examination, which show no right-sided issues to speak of. In fact, the CT examination is relatively benign except for the finding at the L4-L5 level on the left, which is only moderate in nature and does not appear to be compressing the nerve roots to any great degree. After a discussion of the findings of the CT examination which lasted for approximately 24 minutes, the patient was consented to undergo the requested epidural injection to determine if her symptoms would be helped with this type of procedure. We have advised the patient of the risks and benefits, states understood and wished to proceed. 2. Recommend no changes in medication therapy. She is currently on buprenorphine for baseline pain control. This should be sufficient to treat the symptoms. I would recommend that if additions are made to the medication management that they be made in a muscle relaxant standpoint as this appears to be the majority of the patient's symptoms today. We will defer to the primary team to determine which muscle relaxant they feel comfortable with prior to discharge. 3. We will see the patient back in followup visit for her medication management as already established from an appointment standpoint. If further [address] [address] PAIN MANAGEMENT CONSULTATION Name: ALLEN CABRERA Room #: 417-I [facility] IN .R.#: [id number] Admission: 09/17/18 Attend Phys: Benjie Palomo MD Discharge: Date of : 69 Report #: [id number] interventional treatments are necessary, she can return earlier. 4. We wish to thank Dr. Palomo for the referral of this inpatient to our clinic. We will keep you apprised of her response to the epidural injection requested today. PROCEDURE NOTE: DESCRIPTION OF PROCEDURE: L4-L5 right paramedian epidural steroid injection under fluoroscopic guidance. After obtaining written consent, the patient was taken back to fluoroscopy suite, placed in prone position with pillow under abdomen to decrease lumbar lordosis. Skin overlying lumbosacral area then prepped and draped in aseptic fashion. The L4-L5 level was identified by AP fluoroscopy. Skin and subcutaneous tissue overlying target site of injection was anesthetized with 3 mL of 1% lidocaine. A 20-gauge 3-1/2 inch Tuohy needle advanced under fluoroscopic guidance towards the epidural space using right paramedian approach. Epidural space identified using loss of resistance to air technique. After negative aspiration for heme or cerebrospinal fluid, 1 mL of Omnipaque injected. Lumbar epidurogram confirmed using both AP and lateral fluoroscopy. After negative aspiration for heme or cerebrospinal fluid, 5 mL of a solution containing 2 mL 40 mg per mL, 80 mg total triamcinolone, 3 mL lidocaine 1% injected slowly. Needle retracted approximately half way, flushed with 1 mL of 1% lidocaine and then removed. Sterile bandage placed over injection site. No new motor deficits present in the lower extremity following procedure. The patient tolerated procedure well, carefully escorted to recovery room in stable condition. No apparent complications. After meeting discharge criteria, the patient discharged home. By: [id number] Prosper Ramsey DO /nt
--- NOTE | 2018-09-17 11:26 | NUR ---
SISTER-AZAR [id number]
[2018-09-17 14:15] LABS: CALCIUM 9.2 mg/dL (8.5-10.1); CREATININE 0.7 mg/dL (0.6-1.0); POTASSIUM 3.6 mmol/L (3.5-5.1)
[2018-09-17] MEDS ORDERED: NEURONTIN 300300 M1 PO (14:33)
[2018-09-17 16:07] VITALS: BP 130/75
[2018-09-17 16:29] VITALS: BP 131/72
--- NOTE | 2018-09-17 18:47 | NUR ---
[facility] AT 1700, PATIENT CAME FROM THE ER AT 1700. 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 ON REGULAR DIET. WILL CONTINUE TO ASSESS AND ASSIST WITH ADLs NEEDED.
[2018-09-17 20:00] VITALS: BP 129/88
--- NOTE | 2018-09-17 23:17 | NUR ---
PATIENTS CARES WERE ASSUMED AT SHIFT CHANGE. PATIENT WAS ASSESSED AND MEDS WERE PASSED. DOCTOR ELLA WAS CALL TWICE FOR ORDERS TONIGHT AND THEY WERE OBTAINED. PATCH ORDER WAS NOT ABLE TO BE PUT IN DUE TO THE HOSPITAL DOES NOT CCARRY THAT PRODUCT. THE PLAN IS THE PATIENT WILL SEE PAIN MANAGEMENT AND BE D/C'D TOMORROW. HOURLY ROUNDING WAS DONE AND THIS PATIENT WAS PASSED OFF AT APPROX 2330 TO ANOTHER NURSE
--- NOTE | 2018-09-18 02:05 | NUR ---
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
[2018-09-18 04:51] VITALS: BP 141/90
[2018-09-18 07:51] VITALS: BP 133/76
--- NOTE | 2018-09-18 14:54 | NUR ---
Pain Clinic Assessment: 1. History of Osteoarthritis: NONE History of Rheumatoid Arthritis: NONE 2. Height: 5 ft. 5 in. 165.1 cm. Weight: 204.1 lb. oz. 92.579 kg. Patient's BMI: 34.0 3. Vital Signs: BP: 133/76 Pulse: 71 Resp: 18 Temp: 02 Sat: 99 ECG Mon: 4. Pain Intensity: 10 5. Fall Risk: Dizziness: Needs help standing or walking: Fallen in the last 3 months: Fall risk comments: 6. Patient on Blood Thinner: None 7. History of Hypertension: Y 8. Opioid Therapy greater than 6 weeks: Y Opiate Contract Signed: 05/23/18 9. Risk Assessment Tool Provided: LOW RISK 0/3 10. Functional Assessment Tool: 43 11. Recreational Drug Use: Never Drug Type: Tobacco Use: Former Smoker Tobacco Type: Amount or Packs/day: How Many Years: Alcohol Use: No Frequency: Quant:
[2018-09-18 19:10] VITALS: BP 113/66
[2018-09-19 05:21] VITALS: BP 133/71
[2018-09-19 07:10] VITALS: BP 143/78
--- NOTE | 2018-09-19 07:51 | NUR ---
ASSUMED CARE AT 1900, ASSESSMENT COMPLETED. 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 NO NAUSEA AFTER GIVEN ZOFRAN AT SHIFT CHANGE. CAPNOGRAPHY MONITOR ON. C/O ITCHING, GIVEN PO BENADRYL, MADE PT VERY DROWSY AND SLEPT MORE THAN HALF THE SHIFT. DID NOT USE THE POULTRY FARMER EGG FROM 0300 TO 0700. NO OTHER CONCERNS, SHIFT REPORT GIVEN AT 0700.
[2018-09-19] MEDS ORDERED: OXYCODONE HCL10 MG PO (08:06)
[2018-09-19 09:16] VITALS: BP 143/78
[2018-09-19 10:34] VITALS: BP 143/78
[2018-09-19 10:46] VITALS: BP 143/78
--- NOTE | 2018-09-19 10:49 | NUR ---
PT'S IV ACSESS DCD. DISCHARGE PAPERWORK GONE OVER WITH PATIENT SIGNED AND COPY IN CHART. ALL BELONGINGS PACKED AND SENT WITH PATIENT. PT GIVEN PRN PAIN MED BEFORE DISCHARGE
[2018-09-19 10:56] VITALS: BP 143/78
== END 2018-09-19 10:58 | disposition home or self-care (01) | DRG 552 ==
LOC: ER 11:12 → EROBS 14:24 → 4E 14:24 → ENTRNSPT 09-19 10:49 → EDTRNSPTSTS 09-19 10:52 → 4E 09-19 10:58
PROVIDERS: Physician Assistant; ADMIT Family Medicine
DX: M47.27 Other spondylosis with radiculopathy, lumbosacral region (principal); M54.9 Dorsalgia, unspecified; M51.26 Other intervertebral disc displacement, lumbar region; Z90.710 Acquired absence of both cervix and uterus; Z88.1 Allergy status to other antibiotic agents; Z88.8 Allergy status to other drugs, medicaments and biological substances; Z87.891 Personal history of nicotine dependence
CPT/HCPCS: 10084

== ENCOUNTER → 2018-10-02 | Outpatient (CLI) | payer OTHER ==
[~2018-10-02] VITALS: Ht 165.1 cm; Wt 92.1 kg
[~2018-10-02] MED LIST changes: +GRALISE600 MG PO; +OXYCODONE HCL10 MG PO; -VITAMIN D5000 UNIT PO; +VITAMIN D50000 UNIT PO
--- NOTE | ~2018-10-02 | HPC ---
[facility] [place] [address] PAIN MANAGEMENT CONSULTATION Name: ALLEN CABRERA Room #: REG JEANNIEVioleta Lopez#: [id number] Admission: 10/02/18 Attend Phys: Prosper Ramsey DO Discharge: Date of : 69 Report #: [id number] THIS REPORT FOR: //name// CC: Prosper Palomo MD DATE OF SERVICE: 10/02/2018 REFERRING PHYSICIAN: Benjie Palomo M.D. CHIEF COMPLAINT: Low back pain and generalized body pain. HISTORY OF PRESENT ILLNESS: As you know, the patient is a 53-year-old female who returns today in followup visit to discuss ongoing medication management. The patient was recently hospitalized for acute onset of back pain. Review of her MRI shows minor changes in her lumbar region. She underwent an epidural injection under fluoroscopic guidance, which are reportedly provided near 100% improvement in overall pain, which is ongoing. She returns today in followup visit stating she has recently been evaluated by her bedspread cutter hand and has been given the diagnosis of fibromyalgia. The patient and I discussed this at length in the past and she has been initiated on medication in hopes of improving her fibromyalgia pain. From her back standpoint, the patient is doing very well. She returns today in followup visit stating pain, no greater than 2/10. She is requesting refill of her Butrans at 20 mcg patch. She feels medications are working well, understanding that they are relatively contraindicated with concomitant fibromyalgia diagnosis and may ultimately need to come off the medication. She returns requesting medication treatment. ALLERGIES: ADHESIVE TAPE, ACETAMINOPHEN and CEFTRIAXONE. CURRENT MEDICATIONS: Meloxicam, gabapentin, buprenorphine, fluticasone, Bactrim-DS, buspirone, alprazolam, hydrocodone, albuterol, amlodipine, losartan, atorvastatin and duloxetine. SOCIAL HISTORY: The patient is a nonsmoker. Denies IV or illicit drug use. Denies any chronic alcohol use. She is unaccompanied today. IMAGING DATA: No new imaging available. PHYSICAL EXAMINATION: VITAL SIGNS: Blood pressure 149/89, pulse 82 and respiratory rate 14 and unlabored. The patient is 97% on room air. Height 5 feet 5 inches tall, weight 203 pounds and BMI calculated 33.8. GENERAL: Well-developed, well-nourished, well-hydrated exogenously obese 53-year-old female appearing her stated age. She is [place] [address] PAIN MANAGEMENT CONSULTATION Name: ALLEN CABRERA Room #: REG CLI [facility]#: [id number] Admission: 10/02/18 Attend Phys: Prosper Ramsey DO Discharge: Date of : 69 Report #: [id number] 10/21. HEENT: Normocephalic and atraumatic. Pupils equal, round and reactive to light. EXTREMITIES: Show no clubbing, no cyanosis and no edema. MUSCULOSKELETAL: Lower extremity strength equal and symmetrical 5/5, muscle bulk and tone equal and symmetrical. Seated straight leg raising negative. Supine straight leg raising negative. Li's test negative. Modified Gaenslen's positive for some axial low back pain. ankle clonus. Normal Babinskis. ASSESSMENT: 1. Mild intervertebral disk changes. 2. Mild broad-based disk bulge. 3. Moderate neural foraminal stenosis. 4. Mild lumbosacral spondylosis without radicular symptoms. 5. Fibromyalgia. 6. Chronic intractable pain. PLAN: 1. The patient has returned today in followup visit having indicated good efficacy with the epidural injection provided while an inpatient, she has had near complete resolution of her back and lower extremity symptoms. Interestingly, we reviewed the patient's CT examination, which shows relatively benign findings. There is no specific reason why the patient is experiencing ongoing pain issues that presented as a radicular type symptom. I am at a loss to determine why the patient continues to experience these issues but has responded well to epidural injections and we can continue to use these if necessary to alleviate her back symptoms. Please see she has done well, though again a CT examination would show minor findings that should not be contributing significantly to intermittent pain issues. 2. The patient has received the diagnosis of fibromyalgia from her bedspread cutter hand. I have advised the patient at this time fibromyalgia treatment is not to be utilized and concomitant with opioid management. We may ultimately need to adjust her opioid medications as the CDC indicates that opioid use for fibromyalgia is a relative contraindication and is not on the algorithm for treatment. We discussed this with the patient today. We will ultimately reducing her medication once we have her adjusted from her fibromyalgia pain standpoint with neuropathic medications indicated as proper treatment for fibromyalgia symptoms. 3. The patient was provided a prescription of Butrans 20 mcg patch 1 patch q. week, given #4 patches with releases of today and 4 weeks from today, 2 months' worth of medication. I did advise the patient today the likelihood of reducing these doses will be discussed again at her followup visit in 2 months. 4. We reviewed the fact that opiate medications are being used to provide analgesia adequate to support activities of daily living, not attempting to achieve a specific pain score on the 0-10 Visual Analog Scale. The current [address] [address] PAIN MANAGEMENT CONSULTATION Name: ALLEN CABRERA Room #: REG [facility]#: [id number] Admission: 10/02/18 Attend Phys: Prosper Ramsey DO Discharge: Date of : 69 Report #: [id number] opiate medications are providing sufficient analgesia to allow the patient to participate in activities of daily living. The patient is not exhibiting any aberrant behavior suggestive of drug diversion. The patient is not having any adverse reactions to medications. The patient is not suffering from daytime somnolence or mental acuity changes. The patient is managing opiate-induced constipation with appropriate [id number]-juz-[id number] agents and dietary considerations. The patient was counseled on concern for caution with operating a motor vehicle while using opiate medications. A physical exam was performed and the patient's functional status was evaluated. All patients with back pain were advised against the bed rest greater than 4 days and were advised to return to normal activities. Pain score assessment was noted and the treatment plan was reviewed with the patient. All current medications, both prescribed and OTC were reviewed and reconciled on the electronic medical record. Tobacco screening was accomplished and smoking cessation was advised when indicated. BMI was noted and diet/exercise modification was recommended for all patients following outside normal parameters. I reviewed with the patient today their responsibilities to safeguard prescription medications, reviewed their responsibility to utilize medications only as prescribed by the physician. They are to seek and receive pain medications only from 1 physician group ( [facility]). They are to use 1 pharmacy and keep the clinic informed if they change pharmacies. Their responsibilities include making followup visits in a timely fashion and to avoid abrupt discontinuation of medication usage. Their responsibilities further include bringing their medications (bottles from the pharmacy with residual pills) to the visit for possible confirmation of pill counts and the patient understands it is their responsibility to submit to random drug screens to ensure both that the medications prescribed are present, and that no other controlled substances are present. All prescriptions provided today were generated electronically. By: [id number] Prosper Ramsey DO /nt
[2018-10-02 12:49] VITALS: BP 149/89
--- NOTE | 2018-10-02 12:58 | NUR ---
Pain Clinic Assessment: 1. History of Osteoarthritis: NONE History of Rheumatoid Arthritis: NONE 2. Height: 5 ft. 5 in. 165.1 cm. Weight: 203.0 lb. oz. 92.080 kg. Patient's BMI: 33.8 3. Vital Signs: BP: 149/89 Pulse: 82 Resp: 14 Temp: 02 Sat: 97 ECG Mon: 4. Pain Intensity: 2 5. Fall Risk: Dizziness: N Needs help standing or walking: N Fallen in the last 3 months: N Fall risk comments: 6. Patient on Blood Thinner: None 7. History of Hypertension: Y 8. Opioid Therapy greater than 6 weeks: Y Opiate Contract Signed: 05/23/18 9. Risk Assessment Tool Provided: LOW RISK 0/3 10. Functional Assessment Tool: 43/70 11. Recreational Drug Use: Never Drug Type: Tobacco Use: Former Smoker Tobacco Type: Amount or Packs/day: How Many Years: Alcohol Use: No Frequency: Quant:
== END ==
LOC: PAIN 06:52
DX: M54.5 Low back pain (principal); G89.29 Other chronic pain; Z79.899 Other long term (current) drug therapy

== ENCOUNTER → 2018-11-27 | Outpatient (CLI) | payer OTHER ==
[~2018-11-27] VITALS: Ht 165.1 cm; Wt 92.5 kg
[2018-11-27 09:40] VITALS: BP 138/87
--- NOTE | 2018-11-27 10:04 | NUR ---
Pain Clinic Assessment: 1. History of Osteoarthritis: NONE History of Rheumatoid Arthritis: NONE 2. Height: 5 ft. 5 in. 165.1 cm. Weight: 204.0 lb. oz. 92.534 kg. Patient's BMI: 33.9 3. Vital Signs: BP: 138/87 Pulse: 80 Resp: 20 Temp: 02 Sat: 100 ECG Mon: 4. Pain Intensity: 5 5. Fall Risk: Dizziness: N Needs help standing or walking: N Fallen in the last 3 months: N Fall risk comments: 6. Patient on Blood Thinner: None 7. History of Hypertension: Y 8. Opioid Therapy greater than 6 weeks: Y Opiate Contract Signed: 05/23/18 9. Risk Assessment Tool Provided: LOW RISK 0/3 10. Functional Assessment Tool: 11. Recreational Drug Use: Never Drug Type: Tobacco Use: Former Smoker Tobacco Type: Amount or Packs/day: How Many Years: Alcohol Use: No Frequency: Quant: Pain Clinic Assessment: 1. History of Osteoarthritis: NONE History of Rheumatoid Arthritis: NONE 2. Height: 5 ft. 5 in. 165.1 cm. Weight: 204.0 lb. oz. 92.534 kg. Patient's BMI: 33.9 3. Vital Signs: BP: 138/87 Pulse: 80 Resp: 20 Temp: 02 Sat: 100 ECG Mon: 4. Pain Intensity: 5 5. Fall Risk: Dizziness: N Needs help standing or walking: N Fallen in the last 3 months: N Fall risk comments: 6. Patient on Blood Thinner: None 7. History of Hypertension: Y 8. Opioid Therapy greater than 6 weeks: Y Opiate Contract Signed: 05/23/18 9. Risk Assessment Tool Provided: LOW RISK 0/3 10. Functional Assessment Tool: 11. Recreational Drug Use: Never Drug Type: Tobacco Use: Former Smoker Tobacco Type: Amount or Packs/day: How Many Years: Alcohol Use: No Frequency: Quant:
--- NOTE | 2018-12-04 08:14 | HPC ---
[facility] [address] [place] [address] PAIN MANAGEMENT CONSULTATION Name: ALLEN CABRERA Room #: REG [facility] M.R.#: [id number] Admission: 11/27/18 ������������������ Attend Phys: Prosper Ramsey DO Discharge: ������������������ Date of : 69 Report #: [id number] THIS REPORT FOR: //name// CC: Prosper Palomo MD DATE OF SERVICE: 11/27/2018 REFERRING PHYSICIAN: Benjie Palomo MD. CHIEF COMPLAINT: Low back pain, generalized body pain. HISTORY OF PRESENT ILLNESS: As you know, the patient is a 53-year-old female who returns today in followup visit requesting refill on medications. She is utilizing a Butrans patch 20 mcg q. week with good efficacy. She continues the workup with Dr. Reinaldo Preciado in regards to fibromyalgia, which I believe is the source of the patient's generalized pain. She is now taking Gralise 1800 mg p.o. at bedtime and has been on that treatment for nearly a month. She has not noticed much in the way of improvement in generalized pain disorder. She returns today in followup visit, denying any new injuries or traumas or any changes in medical history since our last visit except for the escalation of the Gralise for her fibromyalgia suspected disease process. ALLERGIES: ADHESIVE TAPES, ACETAMINOPHEN, CEFTRIAXONE. CURRENT MEDICATIONS: Meloxicam, gabapentin, buprenorphine, fluticasone, Bactrim DS, buspirone, alprazolam, hydrocodone, albuterol, amlodipine, losartan, atorvastatin, duloxetine. SOCIAL HISTORY: The patient reports she is a nonsmoker. Denies IV or illicit drug use. Denies any chronic alcohol use. She is working, unaccompanied today. IMAGING: No new imaging available. PHYSICAL EXAMINATION: VITAL SIGNS: Blood pressure 138/87, pulse 80, respiratory rate 20 and unlabored. The patient is 100% on room air. Height 5 feet 5 inches tall, weight 204 pounds, BMI calculated 33.9. GENERAL: Well-developed, well-nourished, well-hydrated, exogenously obese 53-year-old female appearing her stated age. Pain is rated around 5/10. HEENT: Normocephalic, atraumatic. Pupils equal, round, reactive to light. EXTREMITIES: Show no clubbing, no cyanosis, no edema. MUSCULOSKELETAL: Lower extremity strength remains 5/5. Giveaway strength noted with hip flexion and extension bilaterally, appears to patient effort related. Muscle bulk, tone equal and symmetrical. Seated straight leg raising negative. [facility] [address] [place] [address] PAIN MANAGEMENT CONSULTATION Name: ALLEN CABRERA Room #: REG [facility].#: [id number] Admission: 11/27/18 ������������������ Attend Phys: Prosper Ramsey DO Discharge: ������������������ Date of : 69 Report #: [id number] Supine straight leg raising negative. STAR test negative. Modified Gaenslen's positive for some axial low back pain. Ankle clonus negative. Babinski is negative. ASSESSMENT: 1. Mild intervertebral disk changes. 2. Mild broad-based disk bulges. 3. Mild neural foraminal stenosis of the lumbar spine. 4. Mild lumbosacral spondylosis without current radicular symptoms. 5. Fibromyalgia. 6. Chronic intractable pain. PLAN: 1. The patient returns today in followup visit where we have discussed at length the use of the buprenorphine. She is at the top dose of buprenorphine available, 20 mcg patch, will not be able to escalate this medication further. This also indicates the majority of opioid medications given its strong affinity for the mu receptor as a partial agonist. Would recommend that patient remain at this dose of medication with the understanding that no further escalation can be offered. The patient was amenable and does wish to remain on the medication. She states that she is having difficulty with the generic form of the medication as it is not remaining adherent to the skin and she is having to tape these patches down within 24 hours even though she is supposed to be wearing them for a week at a time. She has requested that we provide her a prescription for name brand only Butrans patches. I have advised the patient we would do so though if authorizations are necessary, would not be able to accommodate her on that end. Generic medications have been shown to be just as effective as name brand medications. The adhesive issues can be resolved in other ways, though we did offer the prescription for name brand today. If she is able to obtain these medications that would be better the patient as the adherence of that patch is more convenient. This adherence also adds to the efficacy of the medication providing good skin contact, which is required for these transdermal patches. 2. The patient was provided a prescription of Butrans patch, 20 mcg patch, 1 patch q. week, #4 releasing today and 4 weeks from today, 2 months' worth of medication. 3. I have discussed with the patient her recent presumptive diagnosis of fibromyalgia. This does fit with the patient generalized pain disorder. I will defer to Dr. Reinaldo Preciado, the treating physician for adjustments in medication. Certainly one could look towards nortriptyline and amitriptyline, rotating from gabapentin to Lyrica or the addition of Savella as a treatment course. We will defer to Dr. Preciado in treatment for this condition. 4. We will see the patient back in followup visit in 2 months for medication [facility] [address] [place] [address] PAIN MANAGEMENT CONSULTATION Name: PIPOKHAIALLENDELL DUNCAN Room #: REG GUILHERME Lopez#: [id number] Admission: 11/27/18 ������������������ Attend Phys: Prosper Ramsey DO Discharge: ������������������ Date of : 69 Report #: [id number] management. She does wish to consider possible next in the series of epidural injections if necessary. We will obtain authorization if necessary. ��������������������������������������������� <ELECTRONICALLY SIGNED> ���������������������������������������� By: Prosper Ramsey DO ��������������������������������������������� 12/04/18 [id number] Prosper Ramsey DO /nt
== END ==
LOC: PAIN 07:04
DX: M79.7 Fibromyalgia (principal); G89.4 Chronic pain syndrome; M47.897 Other spondylosis, lumbosacral region; M48.061 Spinal stenosis, lumbar region without neurogenic claudication; M51.26 Other intervertebral disc displacement, lumbar region; Z88.8 Allergy status to other drugs, medicaments and biological substances; Z79.899 Other long term (current) drug therapy

== ENCOUNTER → 2019-01-22 | Outpatient (CLI) | payer OTHER ==
[~2019-01-22] VITALS: Ht 165.1 cm; Wt 93.0 kg
[~2019-01-22] MED LIST changes: +BUTRANS1 EAC2 TRANSDERM
[2019-01-22 09:16] VITALS: BP 148/95
--- NOTE | 2019-01-22 09:18 | NUR ---
Pain Clinic Assessment: 1. History of Osteoarthritis: NONE History of Rheumatoid Arthritis: NONE 2. Height: 5 ft. 5 in. 165.1 cm. Weight: 205.0 lb. oz. 92.988 kg. Patient's BMI: 34.1 3. Vital Signs: BP: 148/95 Pulse: 82 Resp: 16 Temp: 02 Sat: 98 ECG Mon: 4. Pain Intensity: 5 5. Fall Risk: Dizziness: N Needs help standing or walking: N Fallen in the last 3 months: N Fall risk comments: 6. Patient on Blood Thinner: None 7. History of Hypertension: Y 8. Opioid Therapy greater than 6 weeks: Y Opiate Contract Signed: 05/23/18 9. Risk Assessment Tool Provided: LOW RISK 0/3 10. Functional Assessment Tool: 43/70 11. Recreational Drug Use: Never Drug Type: Tobacco Use: Former Smoker Tobacco Type: Amount or Packs/day: How Many Years: Alcohol Use: No Frequency: Quant:
--- NOTE | 2019-01-29 08:15 | HPC ---
[facility] [address] [address] PAIN MANAGEMENT CONSULTATION Name: ALLEN CABRERA Room #: REG [facility] M.Jyothi.#: [id number] Admission: 01/22/19 ������������������ Attend Phys: Prosper Ramsey DO Discharge: ������������������ Date of : 69 Report #: [id number] THIS REPORT FOR: //name// CC: Prosper Palomo MD DATE OF SERVICE: 01/22/2019 CHIEF COMPLAINT: Low back pain, generalized body pain. HISTORY OF PRESENT ILLNESS: As you know, the patient is a 53-year-old female following up with our clinic for ongoing medication management. She is utilizing a Butrans patch 20 mcg per week with good efficacy. She is placing pain no greater than 5/10. States the pain is chronic in nature, aching and severe in sensation; exacerbated with activities, walking, sitting; improves with lying down and medications. She returns today in followup visit requesting refill of medications. She is denying side effects of somnolence, decreased mental acuity, disorientation and confusion with use of the medication. She states that without the medication, she could not go about her activities of daily living and her work requirements. She does report today that she is going on a long road trip to the [facility] for vacation the end of January, beginning of February and is excited about this trip. She returns requesting refill of medications at current dosing. ALLERGIES: ADHESIVE TAPES, ACETAMINOPHEN, CEFTRIAXONE. CURRENT MEDICATIONS: Meloxicam, gabapentin, buprenorphine, fluticasone, Bactrim-DS, buspirone, alprazolam, hydrocodone, albuterol, amlodipine, losartan, atorvastatin and duloxetine. SOCIAL HISTORY: The patient reports herself a nonsmoker. Denies IV or illicit drug use. Denies any chronic alcohol use. She is working, not receiving workmen's compensation, unaccompanied today. IMAGING: No new imaging available. PHYSICAL EXAMINATION: VITAL SIGNS: Blood pressure 140/95, pulse is 82, respiratory rate 16 and unlabored. The patient is 98% on room air. Height 5 feet 5 inches tall, weight 205 pounds, BMI calculated 34.1. GENERAL: Well-developed, well-nourished, well-hydrated, exogenously obese 53-year-old female appearing stated age. Pain is rated around 5/10. HEENT: Normocephalic, atraumatic. Pupils equal, round, reactive to light. Speech is fluent. EXTREMITIES: Show no clubbing, no cyanosis, [place] [address] PAIN MANAGEMENT CONSULTATION Name: ALLEN CABRERA Room #: REG [facility].#: [id number] Admission: 01/22/19 ������������������ Attend Phys: Prosper Ramsey DO Discharge: ������������������ Date of : 69 Report #: [id number] MUSCULOSKELETAL: Lower extremity strength is symmetrical again today 5/5. Ankle clonus negative. Babinski is negative. Seated straight leg raising negative. Supine straight leg raising negative. Li's test negative. Modified Gaenslen's is positive for some axial low back pain. Lumbar provocation testing is met with mild increase in pain, mild restriction of motion. ASSESSMENT: 1. Mild intervertebral disk changes. 2. Mild broad-based disk bulge. 3. Mild neuroforaminal stenosis of the lumbar spine. 4. Mild lumbosacral spondylosis with radicular symptoms. 5. Fibromyalgia. 6. Chronic intractable pain. PLAN: 1. The patient returns today in followup visit indicating good efficacy with the buprenorphine medication. She is having some difficulty with adherence of the patches lasting for a week, but this has been resolved with OpSite bandaging over the patches. This appears to be working well, but the patient is planning to make an adjustment in her pharmacy as the pharmacy is not receiving the patch form that was more adherent. She has found this patch at a [address] is going to transfer her care to that facility. We have noted this in the patient's chart. 2. We reviewed the fact that opiate medications are being used to provide analgesia adequate to support activities of daily living, not attempting to achieve a specific pain score on the 0-10 Visual Analog Scale. The current opiate medications are providing sufficient analgesia to allow the patient to participate in activities of daily living. The patient is not exhibiting any aberrant behavior suggestive of drug diversion. The patient is not having any adverse reactions to medications. The patient is not suffering from daytime somnolence or mental acuity changes. The patient is managing opiate-induced constipation with appropriate [id number] agents and dietary considerations. The patient was counseled on concern for caution with operating a motor vehicle while using opiate medications. A physical exam was performed and the patient's functional status was evaluated. All patients with back pain were advised against the bed rest greater than 4 days and were advised to return to normal activities. Pain score assessment was noted and the treatment plan was reviewed with the patient. All current medications, both prescribed and OTC were reviewed and reconciled on the electronic medical record. Tobacco screening was accomplished and smoking cessation was advised when indicated. BMI was noted and diet/exercise modification was recommended for all patients following outside normal parameters. [address] [address] PAIN MANAGEMENT CONSULTATION Name: ALLEN CABRERA Room #: REG [facility]#: [id number] Admission: 01/22/19 ������������������ Attend Phys: Prosper Ramsey DO Discharge: ������������������ Date of : 69 Report #: [id number] I reviewed with the patient today their responsibilities to safeguard prescription medications, reviewed their responsibility to utilize medications only as prescribed by the physician. They are to seek and receive pain medications only from 1 physician group ( [facility]). They are to use 1 pharmacy and keep the clinic informed if they change pharmacies. Their responsibilities include making followup visits in a timely fashion and to avoid abrupt discontinuation of medication usage. Their responsibilities further include bringing their medications (bottles from the pharmacy with residual pills) to the visit for possible confirmation of pill counts and the patient understands it is their responsibility to submit to random drug screens to ensure both that the medications prescribed are present, and that no other controlled substances are present. All prescriptions provided today were generated electronically. 3. The patient was provided prescription of buprenorphine 20 mcg patch 1 patch q. week, given her #4 patches, releasing today and 4 weeks from today, 2 months' worth of medication. 4. The patient has indicated that she recently made a change in her Gralise. Apparently, she is not able to receive refills of the Gralise and has changed her care over to [facility], this appears to be working well for her. We will defer to the primary team who is writing for this medication. 5. We will see the patient back in followup visit in two months for medication management, earlier if interventional treatments are necessary. ��������������������������������������������� <ELECTRONICALLY SIGNED> ���������������������������������������� By: Prosper Ramsey DO ��������������������������������������������� 01/29/19 0815 [id number] Prosper Ramsey DO /nt
== END ==
LOC: PAIN 01-15 09:20
DX: M47.27 Other spondylosis with radiculopathy, lumbosacral region (principal); M51.16 Intervertebral disc disorders with radiculopathy, lumbar region; M48.062 Spinal stenosis, lumbar region with neurogenic claudication; G89.4 Chronic pain syndrome; M79.7 Fibromyalgia; Z79.899 Other long term (current) drug therapy

== ENCOUNTER → 2019-03-05 | Outpatient (CLI) | payer OTHER ==
[~2019-03-05] VITALS: Ht 165.1 cm; Wt 92.8 kg
[~2019-03-05] MED LIST changes: +LYRICA 75 MG CA75 MG PO
[2019-03-05 09:29] VITALS: BP 135/90
--- NOTE | 2019-03-05 09:43 | NUR ---
Pain Clinic Assessment: 1. History of Osteoarthritis: NONE History of Rheumatoid Arthritis: NONE 2. Height: 5 ft. 5 in. 165.1 cm. Weight: 204.6 lb. oz. 92.806 kg. Patient's BMI: 34.0 3. Vital Signs: BP: 135/90 Pulse: 76 Resp: 16 Temp: 02 Sat: 98 ECG Mon: 4. Pain Intensity: 7 5. Fall Risk: Dizziness: N Needs help standing or walking: N Fallen in the last 3 months: N Fall risk comments: 6. Patient on Blood Thinner: None 7. History of Hypertension: Y 8. Opioid Therapy greater than 6 weeks: Y Opiate Contract Signed: 05/23/18 9. Risk Assessment Tool Provided: LOW RISK 0/3 10. Functional Assessment Tool: 43/70 11. Recreational Drug Use: Never Drug Type: Tobacco Use: Former Smoker Tobacco Type: Amount or Packs/day: How Many Years: Alcohol Use: No Frequency: Quant:
--- NOTE | 2019-03-12 13:03 | HPC ---
[facility] [place] [address] PAIN MANAGEMENT CONSULTATION Name: ALLEN CABRERA Room #: REG [facility] Jessica#: [id number] Admission: 03/05/19 ������������������ Attend Phys: Prosper Ramsey DO Discharge: ������������������ Date of : 69 Report #: [id number] THIS REPORT FOR: //name// CC: Prosper Palomo MD DATE OF SERVICE: 03/05/2019 CHIEF COMPLAINT: Neck pain, left upper extremity pain, low back pain, bilateral generalized body pain. HISTORY OF PRESENT ILLNESS: As you know, the patient is a 53-year-old female followed by [facility] for multiple pain generators. She returns today in followup visit for continuation of her Butrans patch for which she utilizes for low back pain and lower extremity symptoms as well as intermittent cervical radicular symptoms. She takes neuropathic pain medications for her generalized pain disorder, believed to be due to fibromyalgia treated by Dr. Preciado. She returns today stating that she is beginning to experience increasing neck pain, left upper extremity pain for which she has been diagnosed with cervical radiculopathy. She wishes to move forward with authorization to undergo a cervical epidural injection, but is also requesting refill of medications at this juncture. She apparently was doing well on Gralise for her generalized body pain, but due to third [employer] party payer restrictions, she cannot obtain this medication. Apparently a shift was made in the patient's medication management to [facility], but this was also not covered by the insurer. She was subsequently put on to Lyrica, but is having difficulty with the medication. She is to follow up with Dr. Preciado in regards to this. She returns to begin the authorization process for cervical epidural injection and to receive refill of medications for her chronic low back pain and lower extremity pain. ALLERGIES: ADHESIVE TAPE, ACETAMINOPHEN, and CEFTRIAXONE. CURRENT MEDICATIONS: Meloxicam, Lyrica, buprenorphine, fluticasone, Bactrim-DS, buspirone, alprazolam, hydrocodone, albuterol, amlodipine, losartan, atorvastatin, and duloxetine. SOCIAL HISTORY: The patient reports herself a nonsmoker. Denies IV or illicit drug use. Denies any chronic alcohol use. She is working, not receiving workmen's compensation, unaccompanied today. IMAGING: No new imaging available. PHYSICAL EXAMINATION: VITAL SIGNS: Blood pressure 135/90, pulse 76, respiratory rate 16 and unlabored. The patient is 98% on room air. Height 5 feet 5 inches tall, weighs [facility] [address] [place] [address] PAIN MANAGEMENT CONSULTATION Name: ALLEN CABRERA Room #: REG [facility].#: [id number] Admission: 03/05/19 ������������������ Attend Phys: Prosper Ramsey DO Discharge: ������������������ Date of : 69 Report #: [id number] 204.6 pounds, and BMI calculated 34.0. GENERAL: Well-developed, well-nourished, well-hydrated exogenously obese 53-year-old female, placing pain score today at 7/10 involving neck, left upper extremity, chronic low back, and generalized body pain. HEENT: Normocephalic, atraumatic. Pupils equal, round, reactive to light. Extraocular muscles are intact. EXTREMITIES: Show no clubbing, no cyanosis, no edema. MUSCULOSKELETAL: Upper extremity strength symmetrical 5/5. She is intact to light touch from C5-T1 dermatomes. Muscle bulk and tone is symmetrical in upper extremities. Spurling's test is equivocal on the left, negative right. Cervical provocation testing is met with a slight increase in pain with left lateral flexion or rotational into the left, negative right. There remains palpatory tenderness over the paraspinal musculature of lower lumbar spine. Seated straight leg raising negative. Supine straight leg raising negative. Li's test negative. Modified Gaenslen's positive for axial low back pain. There is noted multiple tender points throughout the typical tender points indicative for fibromyalgia. ASSESSMENT: 1. Chronic cervical radiculopathy. 2. Cervical spondylosis with radicular symptoms. 3. Mild lumbar intervertebral disk changes. 4. Mild, normal finding in a broad-based disk bulges of the lumbar spine. 5. Mild neural foraminal stenosis of lumbar spine. 6. Mild lumbosacral spondylosis with the radicular symptoms. 7. Fibromyalgia. 8. Chronic intractable pain. 9. Opioid dependency. 10. Complicated medication management. PLAN: 1. The patient returns today in followup visit requesting to begin authorization process for her to undergo a cervical epidural injection under fluoroscopic guidance. She has had cervical epidurals in the past, which have provided good and prolonged benefit. She is advised that this authorization process could take anywhere from 4 days up to 2 weeks to achieve. We will begin this process immediately. Once we have achieved this authorization, we will have the patient return to undergo cervical epidural injection under fluoroscopic guidance to address cervical radicular symptoms. 2. The patient has requested a refill of the Butrans medication. We have given her 20 mcg patch 1 patch q. week, #4 with releases of today and 4 weeks from today, 2 months' worth of medication. 3. The patient and I had a long discussion about her ongoing fibromyalgia and difficulty with medication changes. She was apparently doing very well on Gralise but had to discontinue this medication in favor of Hor[facility]ant, she was taking 1800 mg, both these medications, but cannot afford the [facility]ant as it is [facility] [address] [place] [address] PAIN MANAGEMENT CONSULTATION Name: ALLEN CABRERA [facility] [id number] Admission: 03/05/19 ������������������ Attend Phys: Prosper Ramsey DO Discharge: ������������������ Date of : 69 Report #: [id number] near 1000 dollars per month. She is unable to return to the [facility] as a third alliance party payer does not cover this medication. She was subsequently changed to Lyrica by Dr. Reinaldo Preciado and is having side effects of sleepiness, disorientation, confusion, and less analgesic benefit. I have advised the patient to return to talk to Dr. Preciado about this issue and they might be able to begin an authorization process to have the Gralise and/or [facility] covered. She will discuss this with Dr. Preciado at their followup visit. 4. We will see the patient back in followup visit for cervical epidural injection once we have achieved authorization. ��������������������������������������������� <ELECTRONICALLY SIGNED> ���������������������������������������� By: Prosper Ramsey DO ��������������������������������������������� 03/12/19 1303 [id number] Prosper Ramsey, DO /nt
== END ==
LOC: PAIN 06:43
DX: M47.22 Other spondylosis with radiculopathy, cervical region (principal); M47.816 Spondylosis without myelopathy or radiculopathy, lumbar region; G89.4 Chronic pain syndrome; Z79.891 Long term (current) use of opiate analgesic; Z79.899 Other long term (current) drug therapy; Z88.8 Allergy status to other drugs, medicaments and biological substances

== ENCOUNTER → 2019-03-26 | Outpatient (CLI) | payer OTHER ==
[~2019-03-26] VITALS: Ht 165.1 cm; Wt 93.3 kg
--- NOTE | ~2019-03-26 | HPC ---
[facility] [address] [place] [address] PAIN MANAGEMENT CONSULTATION Name: ALLEN CABRERA [facility] [id number] Admission: 03/26/19 ������������������ Attend Phys: Prosper Ramsey DO Discharge: ������������������ Date of : 69 Report #: [id number] THIS REPORT FOR: //name// CC: Prosper aPlomo MD DATE OF SERVICE: 03/26/2019 REFERRING PHYSICIAN: Benjie Palomo M.D. CHIEF COMPLAINT: Neck pain, left upper extremity pain and paresthesias, chronic low back pain and bilateral generalized body pain. HISTORY OF PRESENT ILLNESS: As you know, the patient is a 53-year-old female returning in followup visit having received precertification to undergo cervical epidural injection under fluoroscopic guidance to address neck pain, left upper extremity pain with paresthesias. The patient is placing pain score today at around 7-8/10. She indicates pain is numbness, tingling and aching in sensation, exacerbated with sleep sitting or standing for long periods of time. Nothing appears to improve pain except for cervical epidural injections and medication management. She returns today in followup visit to undergo the next in a series of cervical epidural injections as we have received precertification. ALLERGIES: ADHESIVE TAPE, ACETAMINOPHEN and CEFTRIAXONE. CURRENT MEDICATIONS: Meloxicam, Lyrica, buprenorphine, fluticasone, Bactrim-DS, buspirone, alprazolam, hydrocodone, albuterol, amlodipine, losartan, atorvastatin and duloxetine. SOCIAL HISTORY: The patient reports herself a nonsmoker. Denies IV or illicit drug use. Denies any chronic alcohol use. She is working, not receiving workmen's compensation, unaccompanied today. IMAGING DATA: No new imaging available. PHYSICAL EXAMINATION: VITAL SIGNS: Blood pressure 130/88, pulse is 66 and respiratory rate 16 and unlabored. The patient is 98% on room air. Height 5 feet 5 inches tall, weight 205.8 pounds and BMI calculated 34.2. GENERAL: Well-developed, well-nourished, well-hydrated exogenously obese 53-year-old female appearing stated age, pain is rated today at 7-8/10. HEENT: Normocephalic and atraumatic. Pupils equal, round and reactive to light. Extraocular muscles are intact. Sclerae nonicteric without injection. NEUROLOGICAL: Cranial nerves 2 through 12 grossly intact. Speech is fluent. [facility] [address] [place] [address] PAIN MANAGEMENT CONSULTATION Name: ALLEN CABRERA Room #: REG [facility]#: [id number] Admission: 03/26/19 ������������������ Attend Phys: Prosper Ramsey DO Discharge: ������������������ Date of : 69 Report #: [id number] The patient deemed a fair historian. LUNGS: Clear. No wheeze, rhonchi or rales. CARDIOVASCULAR: Regular. No appreciable gallop or rub. ABDOMEN: Soft and obese. EXTREMITIES: Show no clubbing, no cyanosis and no edema. MUSCULOSKELETAL: Upper extremity strength is symmetrical again today 5/5. Muscle bulk and tone equal and symmetrical when comparing left upper extremity to right. Spurling's test remains equivocal left, negative right. Cervical provocation is met with increasing pain slightly noted more to the left with lateral flexion and rotation. ASSESSMENT: 1. Cervical radiculopathy. 2. Cervical spondylosis with radicular symptoms. 3. Mild lumbar intervertebral disk changes. 4. Mild broad-based disk bulging of the lumbar spine. 5. Mild neural foraminal stenosis of the lumbar spine. 6. Mild lumbosacral spondylosis with radicular symptoms. 7. Fibromyalgia. PLAN: 1. The patient returns today in followup visit to undergo cervical epidural injection under fluoroscopic guidance. We have obtained authorization for the patient to undergo the procedure today. She has been advised risks and benefits of the procedure and states she understood and wished to proceed. 2. No medication changes made at today's visit. The patient will continue current medical therapy as previously prescribed. 3. We will see the patient back in followup visit on an as needed basis for possible next in a series of cervical epidural injections. Otherwise, we will see her back for medication management at prescribed time frame. PROCEDURE NOTE DESCRIPTION OF PROCEDURE: C7-T1 cervical epidural steroid injection under fluoroscopic guidance. After obtaining written consent, the patient was taken back to fluoroscopy suite, placed in prone position with separate pillows under chest and forehead to decrease cervical lordosis. Skin overlying cervical area then prepped and draped in aseptic fashion. The C7-T1 cervical interspace identified by AP fluoroscopy. Skin and subcutaneous tissue overlying target site of injection anesthetized with 3 mL of 1% lidocaine. A 20-gauge 3-1/2 inch Tuohy needle advanced under fluoroscopic guidance towards the epidural space using a midline approach. Epidural space identified using loss of resistance to air technique. After negative aspiration for heme or [facility] [address] [place] [address] PAIN MANAGEMENT CONSULTATION Name: ALLEN CABRERA Room #: REG [facility] PaolaAlex#: [id number] Admission: 03/26/19 ������������������ Attend Phys: Prosper Ramsey DO Discharge: ������������������ Date of : 69 Report #: [id number] cerebrospinal fluid, 1 mL of Omnipaque injected. A cervical epidurogram confirmed using both AP and lateral fluoroscopy. After negative aspiration for heme or cerebrospinal fluid, 5 mL of a solution containing 2 mL 40 mg per mL, 80 mg total triamcinolone, 3 mL lidocaine 1% injected slowly. Needle retracted approximately half way, flushed with 1 mL of 1% lidocaine and then removed. Sterile bandage placed over injection site. No new motor deficits present in the upper extremities following procedure. The patient tolerated procedure well, carefully escorted to recovery room in stable condition. No apparent complications. After meeting discharge criteria, the patient discharged home. ��������������������������������������������� ���������������������������������������� By: ��������������������������������������������� [id number] Prosper Ramsey DO /nt
[2019-03-26 09:46] VITALS: BP 138/88
--- NOTE | 2019-03-26 09:51 | NUR ---
Pain Clinic Assessment: 1. History of Osteoarthritis: NONE History of Rheumatoid Arthritis: NONE 2. Height: 5 ft. 5 in. 165.1 cm. Weight: 205.8 lb. oz. 93.350 kg. Patient's BMI: 34.2 3. Vital Signs: BP: 138/88 Pulse: 66 Resp: 16 Temp: 02 Sat: 98 ECG Mon: 4. Pain Intensity: 7-8 5. Fall Risk: Dizziness: N Needs help standing or walking: N Fallen in the last 3 months: N Fall risk comments: 6. Patient on Blood Thinner: None 7. History of Hypertension: Y 8. Opioid Therapy greater than 6 weeks: Y Opiate Contract Signed: 05/23/18 9. Risk Assessment Tool Provided: LOW RISK 0/3 10. Functional Assessment Tool: 43/70 11. Recreational Drug Use: Never Drug Type: Tobacco Use: Former Smoker Tobacco Type: Amount or Packs/day: How Many Years: Alcohol Use: No Frequency: Quant:
== END | disposition home or self-care (01) ==
LOC: PAIN 09:22
DX: M47.22 Other spondylosis with radiculopathy, cervical region (principal); M51.16 Intervertebral disc disorders with radiculopathy, lumbar region; M48.061 Spinal stenosis, lumbar region without neurogenic claudication; M47.27 Other spondylosis with radiculopathy, lumbosacral region; G89.29 Other chronic pain; M79.7 Fibromyalgia; Z79.891 Long term (current) use of opiate analgesic; Z79.899 Other long term (current) drug therapy; Z98.890 Other specified postprocedural states; Z88.8 Allergy status to other drugs, medicaments and biological substances

== ENCOUNTER → 2019-05-07 | Outpatient (CLI) | payer OTHER ==
[~2019-05-07] VITALS: Ht 165.1 cm; Wt 94.2 kg
[~2019-05-07] MED LIST changes: +MELATONIN5 M4 PO; +METHOCARBAMOL500 M2 PO
--- NOTE | ~2019-05-07 | HPC ---
[facility] [place] [address] PAIN MANAGEMENT CONSULTATION Name: ALLEN CABRERA Room #: REG [facility] [place].#: [id number] Admission: 05/07/19 Attend Phys: Prosper Ramsey DO Discharge: Date of : 69 Report #: [id number] THIS REPORT FOR: //name// CC: Prosper Palomo MD DATE OF SERVICE: 05/07/2019 CHIEF COMPLAINT: Neck pain, left upper extremity pain with paresthesias, low back pain, bilateral lower extremity pain, generalized body pain. HISTORY OF PRESENT ILLNESS: As you know, the patient is a 53-year-old female followed by [facility] for multiple pain generators. She returns today in followup visit for medication management to address neck pain, left lower extremity pain, low back pain and generalized body pain. She receives from our services, Butrans patch 20 mcg for which she takes 1 patch every week. She denies side effects to medication, does feel it is working well for pain control. She does report increasing neck and left upper extremity pain, for which she wants to discuss the possibility of undergoing a cervical epidural injection. She is also requesting a possible addition of a nonsedating muscle relaxant for spasming of the lower lumbar spine that occurs periodically. She also describes issues with insomnia, for which she needs to follow up with her PCP. She returns today in followup visit for medication management. ALLERGIES: ADHESIVE TAPES, ACETAMINOPHEN, CEFTRIAXONE. CURRENT MEDICATIONS: Meloxicam, Lyrica, buprenorphine, fluticasone, Bactrim-DS, buspirone, alprazolam, hydrocodone, albuterol, amlodipine, losartan, atorvastatin, duloxetine. SOCIAL HISTORY: The patient reports herself a nonsmoker. Denies IV or illicit drug use. Denies any chronic alcohol use. She states she is working, not receiving workmen's compensation, unaccompanied today. IMAGING: No new imaging available. PHYSICAL EXAMINATION: VITAL SIGNS: Blood pressure 135/89, pulse 81, respiratory rate 20 and unlabored. The patient is 97% on room air. Height 5 feet 5 inches tall, weight 207.6 pounds, BMI calculated 34.5. GENERAL: Well-developed, well-nourished, well-hydrated exogenously obese 53-year-old female appearing stated age, pain is rated a 7-8/10. HEENT: Normocephalic, atraumatic. Pupils equal, round, reactive to light. Speech fluent. EXTREMITIES: Show no clubbing, no cyanosis, and no edema. [address] [address] PAIN MANAGEMENT CONSULTATION Name: ALLEN CABRERA Room #: REG [facility].#: [id number] Admission: 05/07/19 Attend Phys: Prosper Ramsey DO Discharge: Date of : 69 Report #: [id number] MUSCULOSKELETAL: Upper extremity strength remains symmetrical 5/5. She is intact to light touch from C5-T1 dermatomes. Muscle bulk and tone is symmetrical when comparing left upper extremity to right. Spurling's test is mildly positive left, negative right. Cervical provocation testing is met with increasing pain and there is noted restriction of motion to the left due to pain generation with rotation and lateral flexion. There is some palpatory tenderness over the paraspinal musculature of lower lumbar spine. No spinous process tenderness. ASSESSMENT: 1. Chronic cervical radiculopathy. 2. Cervical spondylosis with radicular symptoms. 3. Mild lumbar intervertebral disk changes. 4. Mild broad-based disk bulge of the lumbar spine. 5. Mild neural foraminal stenosis of the lumbar spine. 6. Mild lumbosacral spondylosis with lumbar spine. 7. Myofascial pain. 8. Fibromyalgia. 9. Chronic intractable pain. 10. Opioid dependency. 11. Chronic intractable pain. PLAN: 1. The patient returns today in followup visit stating a pain level of 7-8/10. She has had a slow and progressive return of cervical radicular symptoms involving left upper extremity. She is considering undergoing the next in the series of cervical epidural injections as they have shown efficacy in the past. At this point, she wishes to delay the epidural injection as she is hopeful to see improvement in symptoms, though if this does not improve, she will contact our clinic and we will begin the authorization process. I advised the patient to contact our clinic prior to fully exacerbated pain as it will take anywhere from 1-2 weeks to get approval for the next in the series of cervical epidural injections. 2. The patient is describing myofascial symptoms and muscle spasming. We recommend methocarbamol. We have given her 500 mg dose 1 tab p.o. b.i.d. p.r.n. and I have given #60 tablets, 2 refills, 3 months' worth of her medication. She is not to drive or operate heavy equipment while on this medication. It can cause somnolence, decrease in mental acuity, disorientation and confusion. 3. We reviewed the fact that opiate medications are being used to provide analgesia adequate to support activities of daily living, not attempting to achieve a specific pain score on the 0-10 Visual Analog Scale. The current opiate medications are providing sufficient analgesia to allow the patient to participate in activities of daily living. The patient is not exhibiting any aberrant behavior suggestive of drug diversion. The patient is not having any adverse reactions to medications. The patient is not suffering from daytime somnolence or mental acuity changes. The patient is managing opiate-induced [facility] [address] [place] [address] PAIN MANAGEMENT CONSULTATION Name: ALLEN CABRERA Room #: REG [facility].#: [id number] Admission: 05/07/19 Attend Phys: Prosper Ramsey DO Discharge: Date of : 69 Report #: [id number] constipation with appropriate ylrl-ucz-gwaozav agents and dietary considerations. The patient was counseled on concern for caution with operating a motor vehicle while using opiate medications. A physical exam was performed and the patient's functional status was evaluated. All patients with back pain were advised against the bed rest greater than 4 days and were advised to return to normal activities. Pain score assessment was noted and the treatment plan was reviewed with the patient. All current medications, both prescribed and OTC were reviewed and reconciled on the electronic medical record. Tobacco screening was accomplished and smoking cessation was advised when indicated. BMI was noted and diet/exercise modification was recommended for all patients following outside normal parameters. I reviewed with the patient today their responsibilities to safeguard prescription medications, reviewed their responsibility to utilize medications only as prescribed by the physician. They are to seek and receive pain medications only from 1 physician group ([facility]). They are to use 1 pharmacy and keep the clinic informed if they change pharmacies. Their responsibilities include making followup visits in a timely fashion and to avoid abrupt discontinuation of medication usage. Their responsibilities further include bringing their medications (bottles from the pharmacy with residual pills) to the visit for possible confirmation of pill counts and the patient understands it is their responsibility to submit to random drug screens to ensure both that the medications prescribed are present, and that no other controlled substances are present. All prescriptions provided today were generated electronically. 4. The patient was provided prescription of Butrans patch 20 mcg patch 1 patch q. next week. I have given the patient #4 patches releasing today and 4 weeks from today, 2 months' worth of medication. 5. The patient will follow up with our nurse practitioner, Jessica Giordano for refill of medications in 2 months. If she wishes to return for a cervical epidural injection, I will see her back personally to undergo the procedure. By: [id number] Prosper Ramsey DO /nt
[2019-05-07 10:46] VITALS: BP 135/89
--- NOTE | 2019-05-07 11:06 | NUR ---
Pain Clinic Assessment: 1. History of Osteoarthritis: NONE History of Rheumatoid Arthritis: NONE 2. Height: 5 ft. 5 in. 165.1 cm. Weight: 207.6 lb. oz. 94.167 kg. Patient's BMI: 34.5 3. Vital Signs: BP: 135/89 Pulse: 81 Resp: 20 Temp: 02 Sat: 97 ECG Mon: 4. Pain Intensity: 7-8 5. Fall Risk: Dizziness: N Needs help standing or walking: N Fallen in the last 3 months: N Fall risk comments: 6. Patient on Blood Thinner: None 7. History of Hypertension: Y 8. Opioid Therapy greater than 6 weeks: Y Opiate Contract Signed: 05/23/18 9. Risk Assessment Tool Provided: LOW RISK 0/3 10. Functional Assessment Tool: 43/ 11. Recreational Drug Use: Never Drug Type: Tobacco Use: Former Smoker Tobacco Type: Amount or Packs/day: How Many Years: Alcohol Use: No Frequency: Quant:
== END ==
LOC: PAIN 06:52
DX: M47.22 Other spondylosis with radiculopathy, cervical region (principal); M47.816 Spondylosis without myelopathy or radiculopathy, lumbar region; M51.26 Other intervertebral disc displacement, lumbar region; M48.061 Spinal stenosis, lumbar region without neurogenic claudication; M47.817 Spondylosis without myelopathy or radiculopathy, lumbosacral region; G89.4 Chronic pain syndrome; M79.18 Myalgia, other site; F11.20 Opioid dependence, uncomplicated; Z79.899 Other long term (current) drug therapy; Z88.8 Allergy status to other drugs, medicaments and biological substances; Z91.048 Other nonmedicinal substance allergy status

== ENCOUNTER → 2019-05-28 | Outpatient (CLI) | payer OTHER ==
[~2019-05-28] VITALS: Ht 165.1 cm; Wt 95.7 kg
[2019-05-28 10:16] VITALS: BP 138/89
--- NOTE | 2019-05-28 10:39 | NUR ---
Pain Clinic Assessment: 1. History of Osteoarthritis: NONE History of Rheumatoid Arthritis: NONE 2. Height: 5 ft. 5 in. 165.1 cm. Weight: 211.0 lb. oz. 95.709 kg. Patient's BMI: 35.1 3. Vital Signs: BP: 138/89 Pulse: 80 Resp: 20 Temp: 02 Sat: 98 ECG Mon: 4. Pain Intensity: 6-7 5. Fall Risk: Dizziness: N Needs help standing or walking: N Fallen in the last 3 months: N Fall risk comments: 6. Patient on Blood Thinner: None 7. History of Hypertension: Y 8. Opioid Therapy greater than 6 weeks: Y Opiate Contract Signed: 05/23/18 9. Risk Assessment Tool Provided: LOW RISK 0/3 10. Functional Assessment Tool: 56/70 11. Recreational Drug Use: Never Drug Type: Tobacco Use: Current Every Day Smoker Tobacco Type: Cigarettes Amount or Packs/day: 1/2 PK How Many Years: Alcohol Use: No Frequency: Quant:
--- NOTE | 2019-06-04 13:40 | HPC ---
[facility] [place] [address] PAIN MANAGEMENT CONSULTATION Name: ALLEN CABRERA [facility] [id number] Admission: 05/28/19 ������������������ Attend Phys: Prosper Ramsey DO Discharge: ������������������ Date of : 69 Report #: [id number] THIS REPORT FOR: //name// CC: Prosper Palomo MD DATE OF SERVICE: 05/28/2019 CHIEF COMPLAINT: Chronic neck pain, left upper extremity pain and paresthesias, low back pain, bilateral lower extremity pain, generalized body pain. HISTORY OF PRESENT ILLNESS: As you know, the patient is a 53-year-old female, who returns today in followup visit having received precertification to undergo a lumbar epidural injection under fluoroscopic guidance to address recurrent low back pain, bilateral lower extremity pain. As you are aware, the patient reports good efficacy with previous lumbar epidural injection reporting up to 60-70% improvement in overall pain. She returns today to undergo next in the series of epidural injections. She does report generalized body pain and joint pain, which presents very much like exacerbation of fibromyalgia. We had a long discussion with the patient in the past and again today in regards to likely source of her symptoms. I do not perceive that she has a significant a rheumatologic issue, though she is going to be worked up by rheumatology in regards to her generalized symptoms. We will await the results, though based on current examinations and lack of any definitive joint changes, fibromyalgia is at the top of the differential. She returns today, though to undergo an epidural injection. ALLERGIES: ADHESIVE TAPE, ACETAMINOPHEN, AND CEFTRIAXONE. CURRENT MEDICATIONS: Meloxicam, Lyrica, buprenorphine, fluticasone, Bactrim-DS, buspirone, alprazolam, hydrocodone, albuterol, amlodipine, losartan, atorvastatin, and duloxetine. SOCIAL HISTORY: The patient denies tobacco, alcohol, IV or illicit drug use. She is working, not receiving workmen's compensation, unaccompanied today. IMAGING: No new imaging available. PHYSICAL EXAMINATION: VITAL SIGNS: Blood pressure 138/89, pulse 80, respiratory rate 20 and unlabored. The patient is 98% on room air. Height 5 feet 5 inches tall, weight 211 pounds, and BMI calculated 35.1. GENERAL: Well-developed, well-nourished, well-hydrated exogenously obese 53-year-old female appearing stated age, pain is rated at around 6-7/10. HEENT: Normocephalic, atraumatic. Pupils are equal, round, reactive to light. [address] [address] PAIN MANAGEMENT CONSULTATION Name: ALLEN CABRERA Room #: REG [facility].#: [id number] Admission: 05/28/19 ������������������ Attend Phys: Prosper Ramsey DO Discharge: ������������������ Date of : 69 Report #: [id number] EXTREMITIES: Show no clubbing, no cyanosis, and no edema. MUSCULOSKELETAL: Seated straight leg raising negative. Supine straight leg raising negative. Li's test negative. Modified Gaenslen's positive for axial low back pain. Ankle clonus negative. Babinski is negative. Gait is normal, stance slightly forward flexed lumbar spine. There is palpatory tenderness at multiple tender points indicative of myofascial pain syndromes. ASSESSMENT: 1. Mild lumbar intervertebral disk changes. 2. Mild broad-based disk bulge of the lumbar spine. 3. Mild neural foraminal stenosis of lumbar spine. 4. Mild lumbosacral spondylosis with radicular symptoms. 5. Fibromyalgia. PLAN: 1. The patient has returned today in followup visit having received precertification to undergo next in the series of epidural injections under fluoroscopic guidance. The patient has been advised of the risks and the benefits of this procedure. These risks include but are not necessarily limited to bleeding, bruising, infection, worsening pain, no relief of pain, also risk of temporary or permanent muscle weakness, temporary or permanent nerve damage, possible paralysis, post-dural puncture headache and . The patient states she understood and wished to proceed. 2. Based on our physical exam today, the history she provides, the exacerbating factors that lead to the patient's generalized pain, I believe her symptoms are related to fibromyalgia. We discussed at length today treatment options for fibromyalgia. I did advise the patient that long-term opioid therapy for fibromyalgia is contraindicated in that if this symptomology that she is currently experiencing is due to fibromyalgia, it would be best to come off opioid medications entirely. These opioids were started prior to my taking over her case and I do not feel that long-term opioid therapy for fibromyalgia is indicated and based on CDC's recommendations, it is actually contraindicated as these patients do not see significant improvement even with escalating dosing. The patient will consider the option of reducing her opioid medication. I do feel that a reduction would be appropriate. We will await the final workup from Rheumatology to determine the specific etiology of her symptoms, but given the lack of any joint destructive gross signs or any concerns of rheumatologic issues. I believe her symptoms are related to fibromyalgia. We will discuss weaning opioids at our next visit. 3. No medication changes made at today's visit. The patient will continue current medical therapy. 4. We will see the patient back in followup visit on an as needed basis. PROCEDURE NOTE DESCRIPTION OF PROCEDURE: L5-S1 interlaminar epidural steroid injection under [facility] [address] [place] [address] PAIN MANAGEMENT CONSULTATION Name: DEBORAHALLENDELL DUNCAN [facility] [id number] Admission: 05/28/19 ������������������ Attend Phys: Prosper Ramsey DO Discharge: ������������������ Date of : 69 Report #: [id number] fluoroscopic guidance. After obtaining written consent, the patient was taken back to fluoroscopy suite, placed in prone position with pillow under abdomen to decrease lumbar lordosis. Skin overlying lumbosacral area, then prepped and draped in aseptic fashion. The L5-S1 vertebral interspace was identified by AP fluoroscopy. Skin and subcutaneous tissue overlying target site of injection anesthetized with 3 mL of 1% lidocaine. A 20-gauge 3-1/2 inch Tuohy needle advanced under fluoroscopic guidance towards the epidural space using a parasagittal approach. Epidural space identified using loss of resistance to air technique. After negative aspiration for heme or cerebrospinal fluid, 1 mL of Omnipaque injected. Lumbar epidurogram was confirmed using both AP and lateral fluoroscopy. After negative aspiration for heme or cerebrospinal fluid, 5 mL of a solution containing 2 mL 40 mg per mL, 80 mg total triamcinolone and 3 mL lidocaine 1% injected slowly. Needle then retracted snf, flushed with 1 mL of 1% lidocaine and then removed. Sterile bandage placed over injection site. No new motor deficits present in lower extremity following procedure. The patient tolerated procedure well, carefully escorted to recovery room in stable condition. No apparent complications. After meeting discharge criteria, the patient discharged home. ��������������������������������������������� <ELECTRONICALLY SIGNED> ���������������������������������������� By: Prosper Ramsey DO ��������������������������������������������� 06/04/19 1340 [id number] [id number] Prosper Ramsey DO /nt
== END | disposition home or self-care (01) ==
LOC: PAIN 06:49
DX: M54.5 Low back pain (principal); G89.29 Other chronic pain; M51.16 Intervertebral disc disorders with radiculopathy, lumbar region; M48.061 Spinal stenosis, lumbar region without neurogenic claudication; M47.27 Other spondylosis with radiculopathy, lumbosacral region; M79.7 Fibromyalgia; K21.9 Gastro-esophageal reflux disease without esophagitis; F17.210 Nicotine dependence, cigarettes, uncomplicated; Z88.8 Allergy status to other drugs, medicaments and biological substances; Z79.891 Long term (current) use of opiate analgesic; Z79.899 Other long term (current) drug therapy

== ENCOUNTER 2019-06-21 20:08 | Emergency (ER) | payer OTHER ==
[~2019-06-21] VITALS: Ht 165.1 cm; Wt 95.7 kg
[2019-06-21 20:08] VITALS: BP 146/92
[~2019-06-21 20:08] MED LIST changes: +COZAAR 50 MG TA50 M1 PO; -COZAAR 50 MG TA50 M2 PO
[2019-06-21] MEDS ORDERED: LYRICA25 MG PO (20:15)
[2019-06-21] MEDS ORDERED: ZANAFLEX4 M1 PO (20:17)
[2019-06-21 20:39] LABS: URINE BILIRUBIN NEGATIVE (Negative); URINE BLOOD TRACE (Negative); URINE CLARITY CLEAR; URINE COLOR YELLOW; URINE GLUCOSE-RANDOM* NEGATIVE (Negative); URINE KETONES NEGATIVE (Negative); URINE LEUKOCYTES-REFLEX NEGATIVE (Negative); URINE NITRITE-REFLEX NEGATIVE (Negative); URINE PROTEIN (DIPSTICK) NEGATIVE (Negative)
[2019-06-21 22:28] LABS: ABSOLUTE NEUTROPHILS 6.6 thou/uL (1.4-8.2); BASOPHILS 0.7 % (0.0-2.0); EOSINOPHILS 3.2 % (0.0-3.0); HEMATOCRIT 41.8 % (37.0-47.0); HEMOGLOBIN 14.1 gm/dL (12.0-15.0); LYMPHOCYTES 36.5 % (24.0-44.0); MCH 33.2 pg (26.0-34.0); MCHC 33.8 g/dL (28.0-37.0); MONOCYTES 4.5 % (1.0-8.0); PLATELET COUNT 276 thou/uL (150-400); POLYS 55.1 % (36.0-66.0); RBC 4.26 mil/uL (4.20-5.00); RDW 15.4 % (10.5-14.5)
[2019-06-21 22:41] LABS: CALCIUM 8.9 mg/dL (8.5-10.1); CREATININE 0.8 mg/dL (0.6-1.0); POTASSIUM 3.7 mmol/L (3.5-5.1)
[2019-06-21 22:46] LABS: ALBUMIN 3.6 g/dL (3.4-5.0); TOTAL BILIRUBIN 0.4 mg/dL (<0.1-1.0); TOTAL PROTEIN 7.2 g/dL (6.4-8.2)
[2019-06-21] MEDS ORDERED: CITRATE OF MAG296 ML PO (23:20)
[2019-06-21] MEDS ORDERED: SENNA PLUS TAB1 EACH PO (23:24)
[2019-07-30] MEDS ORDERED: FLEXERIL PO (11:25)
[2019-07-30] MEDS ORDERED: CYMBALTA60 MG PO (11:27)
[2019-07-30] MEDS ORDERED: METHOCARBAMOL500 M2 PO (11:27)
[2019-07-30] MEDS ORDERED: ALL DAY ALLERGY10 M3 PO (11:27)
[2019-07-30] MEDS ORDERED: BUTRANS1 EAC2 TRANSDERM (12:32)
== END 2019-06-22 00:14 | disposition home or self-care (01) ==
LOC: ER 20:08
PROVIDERS: Physician Assistant
DX: R14.0 Abdominal distension (gaseous) (principal); R10.9 Unspecified abdominal pain; I10 Essential (primary) hypertension; M47.9 Spondylosis, unspecified; G62.9 Polyneuropathy, unspecified; F17.210 Nicotine dependence, cigarettes, uncomplicated; Z90.710 Acquired absence of both cervix and uterus; Z91.048 Other nonmedicinal substance allergy status; Z88.1 Allergy status to other antibiotic agents; Z88.6 Allergy status to analgesic agent

== ENCOUNTER 2019-07-20 23:18 | Emergency (ER) | payer OTHER ==
[~2019-07-20] VITALS: Ht 165.1 cm; Wt 93.0 kg
[~2019-07-20 23:18] MED LIST changes: +CITRATE OF MAG296 ML PO; +LYRICA25 MG PO; +SENNA PLUS TAB1 EACH PO; +ZANAFLEX4 M1 PO
[2019-07-21] MEDS ORDERED: NAPROSYN500 MG PO (03:22)
[2019-07-21] MEDS ORDERED: NORFLEX100 MG PO (03:22)
[2019-07-21] MEDS ORDERED: ROXICODONE5 M2 PO (03:22)
[2019-07-21] MEDS ORDERED: SENNA-DOCUSATE1 EAC1 PO (03:22)
[2019-07-21 04:15] VITALS: BP 145/85
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
[2019-07-30] MEDS ORDERED: FLEXERIL PO (11:25)
[2019-07-30] MEDS ORDERED: CYMBALTA60 MG PO (11:27)
[2019-07-30] MEDS ORDERED: METHOCARBAMOL500 M2 PO (11:27)
[2019-07-30] MEDS ORDERED: ALL DAY ALLERGY10 M3 PO (11:27)
[2019-07-30] MEDS ORDERED: BUTRANS1 EAC2 TRANSDERM (12:32)
== END 2019-07-21 04:05 | disposition home or self-care (01) ==
LOC: ER 23:18
DX: S16.1XXA Strain of muscle, fascia and tendon at neck level, initial encounter (principal); G89.29 Other chronic pain; M54.5 Low back pain; G62.9 Polyneuropathy, unspecified; F17.210 Nicotine dependence, cigarettes, uncomplicated; Z88.1 Allergy status to other antibiotic agents; Z88.8 Allergy status to other drugs, medicaments and biological substances; Z90.710 Acquired absence of both cervix and uterus; Z88.6 Allergy status to analgesic agent; V89.2XXA Person injured in unspecified motor-vehicle accident, traffic, initial encounter; Y93.89 Activity, other specified; Y92.89 Other specified places as the place of occurrence of the external cause; Y99.8 Other external cause status

== ENCOUNTER → 2019-07-30 | Outpatient (CLI) | payer OTHER ==
[~2019-07-30] VITALS: Ht 165.1 cm; Wt 99.9 kg
[~2019-07-30] MED LIST changes: +ALL DAY ALLERGY10 M3 PO; +NAPROSYN500 MG PO; +ROXICODONE5 M2 PO; +SENNA-DOCUSATE1 EAC1 PO
[2019-07-30 11:13] VITALS: BP 121/81
--- NOTE | 2019-07-30 11:36 | NUR ---
Pain Clinic Assessment: 1. History of Osteoarthritis: NONE History of Rheumatoid Arthritis: NONE 2. Height: 5 ft. 5 in. 165.1 cm. Weight: 220.2 lb. oz. 99.882 kg. Patient's BMI: 36.6 3. Vital Signs: BP: 121/81 Pulse: 86 Resp: 20 Temp: 02 Sat: 100 ECG Mon: 4. Pain Intensity: 7 5. Fall Risk: Dizziness: N Needs help standing or walking: N Fallen in the last 3 months: N Fall risk comments: 6. Patient on Blood Thinner: None 7. History of Hypertension: Y 8. Opioid Therapy greater than 6 weeks: Y Opiate Contract Signed: 05/23/18 9. Risk Assessment Tool Provided: LOW RISK 0 10. Functional Assessment Tool: 56/ 11. Recreational Drug Use: Never Drug Type: Tobacco Use: Current Every Day Smoker Tobacco Type: Cigarettes Amount or Packs/day: 1/2 PACK How Many Years: 25 Alcohol Use: No Frequency: Quant:
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
== END | disposition home or self-care (01) ==
LOC: PAIN 07-23 06:51
DX: M47.22 Other spondylosis with radiculopathy, cervical region (principal); G89.29 Other chronic pain; M79.18 Myalgia, other site; K21.9 Gastro-esophageal reflux disease without esophagitis; F41.1 Generalized anxiety disorder; F17.210 Nicotine dependence, cigarettes, uncomplicated; G43.909 Migraine, unspecified, not intractable, without status migrainosus; Z98.890 Other specified postprocedural states; Z79.899 Other long term (current) drug therapy; Z88.8 Allergy status to other drugs, medicaments and biological substances

== ENCOUNTER → 2019-08-27 | Outpatient (CLI) | payer OTHER ==
[~2019-08-27] VITALS: Ht 165.1 cm; Wt 98.9 kg
[~2019-08-27] MED LIST changes: +LYRICA225 MG PO; +PREDNISONE 20 M20 M1 PO
[2019-08-27 11:20] VITALS: BP 147/101
--- NOTE | 2019-08-27 11:37 | NUR ---
Pain Clinic Assessment: 1. History of Osteoarthritis: NONE History of Rheumatoid Arthritis: NONE 2. Height: 5 ft. 5 in. 165.1 cm. Weight: 218.0 lb. oz. 98.884 kg. Patient's BMI: 36.3 3. Vital Signs: BP: 147/101 Pulse: 87 Resp: 16 Temp: 02 Sat: 97 ECG Mon: 4. Pain Intensity: 7 5. Fall Risk: Dizziness: Y Needs help standing or walking: N Fallen in the last 3 months: N Fall risk comments: 6. Patient on Blood Thinner: None 7. History of Hypertension: Y 8. Opioid Therapy greater than 6 weeks: Y Opiate Contract Signed: 05/23/18 9. Risk Assessment Tool Provided: LOW RISK 0 10. Functional Assessment Tool: / 11. Recreational Drug Use: Never Drug Type: Tobacco Use: Current Every Day Smoker Tobacco Type: Cigarettes Amount or Packs/day: 1/2 How Many Years: Alcohol Use: No Frequency: Quant:
--- NOTE | 2019-08-28 12:06 | HPC ---
[facility] [place] [address] PAIN MANAGEMENT CONSULTATION Name: ALLEN CABRERA Room #: REG [facility] M..#: [id number] Admission: 08/27/19 Attend Phys: Prosper Ramsey DO Discharge: Date of : 69 Report #: [id number] THIS REPORT FOR: //name// CC: Prosper Palomo MD DATE OF SERVICE: 08/27/2019 REFERRING PHYSICIAN: Benjie Palomo MD. CHIEF COMPLAINT: Neck pain, fibromyalgia. HISTORY OF PRESENT ILLNESS: As you know, the patient is a 53-year-old female, who suffers from chronic neck pain, intermittent low back pain, and fibromyalgia, which causes generalized pain disorder. She returns today in followup visit requesting refill on medications in the form of buprenorphine and methocarbamol for her neck and back pain. She is requesting refills on her Lyrica and Cymbalta for her fibromyalgia symptoms. These medications were initiated by another physician, but she has requested that we provide these from a pain standpoint, as she is transitioning to a new physician and returns today indicating no side effects to medication including sleepiness, disorientation, confusion, mental slowing, or constipation She feels the combination of medications are working beneficially despite the elevated pain level of 7/10 today, which is fairly typical for her. ALLERGIES: ADHESIVE TAPE, ACETAMINOPHEN, and CEFTRIAXONE. CURRENT MEDICATIONS: Losartan 50 mg 2 tabs per day, amlodipine 10 mg per day, alprazolam 0.5 mg q. 8 hours p.r.n., cholecalciferol 5000 units per day, duloxetine 60 mg p.o. b.i.d., pregabalin 225 mg b.i.d., methocarbamol 500 mg twice a day p.r.n., cetirizine 10 mg once a day, Butrans 20 mcg q. week, and albuterol 2 puffs q. 4 hours p.r.n. shortness of breath. SOCIAL HISTORY: The patient denies tobacco, alcohol, or IV illicit drug use. She is working, not receiving workmen's compensation, and unaccompanied today. IMAGING: No new imaging is available. PHYSICAL EXAMINATION: VITAL SIGNS: Blood pressure 147/101, pulse is 87, and respiratory rate 16 and unlabored. The patient is 97% on the room air. Height 5 feet and 5 inches tall, weight 218 pounds, and BMI calculated 36.3. GENERAL: Well-developed, well-nourished, well-hydrated, and exogenously obese 53-year-old female, appears stated age, pain is rated at 7/10. HEENT: Normocephalic and atraumatic. Pup[place] [address] PAIN MANAGEMENT CONSULTATION Name: ALLEN CABRERA [id number] Admission: 08/27/19 Attend Phys: Prosper aRmsey DO Discharge: Date of : 69 Report #: [id number] EXTREMITIES: Showed no clubbing, no cyanosis, and no edema. MUSCULOSKELETAL: Upper extremity strength remains symmetrical, 5/5. Muscle bulk and tone equal and symmetrical when comparing upper extremities to each other. Spurling's test remains equivocal. There is some palpatory tenderness over the paraspinal musculature of cervical spine. No spinous process tenderness. There are noted 12 of 18 tender points indicative of myofascial pain such as fibromyalgia. ASSESSMENT: 1. Chronic neck pain. 2. Cervical radiculopathy. 3. Cervical spondylosis with radiculopathy. 4. Fibromyalgia. 5. Myofascial pain. 6. Chronic intractable pain. 7. Opioid dependency. PLAN: 1. The patient returns today in followup visit requesting refill of her medications in the form of buprenorphine and methocarbamol that she uses for her chronic neck and back pain issues. She feels these medications are working beneficially for pain control. She is denying side effects of sleepiness, disorientation, confusion, or mental slowing with use of the medication. She wishes refills to be provided today. We reviewed the fact that opiate medications are being used to provide analgesia adequate to support activities of daily living, not attempting to achieve a specific pain score on the 0-10 Visual Analog Scale. The current opiate medications are providing sufficient analgesia to allow the patient to participate in activities of daily living. The patient is not exhibiting any aberrant behavior suggestive of drug diversion. The patient is not having any adverse reactions to medications. The patient is not suffering from daytime somnolence or mental acuity changes. The patient is managing opiate-induced constipation with appropriate [id number] agents and dietary considerations. The patient was counseled on concern for caution with operating a motor vehicle while using opiate medications. A physical exam was performed and the patient's functional status was evaluated. All patients with back pain were advised against the bed rest greater than 4 days and were advised to return to normal activities. Pain score assessment was noted and the treatment plan was reviewed with the patient. All current medications, both prescribed and OTC were reviewed and reconciled on the electronic medical record. Tobacco screening was accomplished and smoking cessation was advised when indicated. BMI was noted and diet/exercise modification was recommended for all patients following outside normal parameters. [place] [id number] PAIN MANAGEMENT CONSULTATION Name: ALLEN CABRERA Room #: REG [facility].#: [id number] Admission: 08/27/19 Attend Phys: Prosper Ramsey DO Discharge: Date of : 69 Report #: [id number] I reviewed with the patient today their responsibilities to safeguard prescription medications, reviewed their responsibility to utilize medications only as prescribed by the physician. They are to seek and receive pain medications only from 1 physician group ( [facility]). They are to use 1 pharmacy and keep the clinic informed if they change pharmacies. Their responsibilities include making followup visits in a timely fashion and to avoid abrupt discontinuation of medication usage. Their responsibilities further include bringing their medications (bottles from the pharmacy with residual pills) to the visit for possible confirmation of pill counts and the patient understands it is their responsibility to submit to random drug screens to ensure both that the medications prescribed are present, and that no other controlled substances are present. All prescriptions provided today were generated electronically. 2. The patient was provided a prescription of Butrans 20 mcg patch 1 patch q. 7 days. I have given the prescriptions to release today and 4 weeks from today, 2 months' worth of medication. 3. The patient was provided a prescription of methocarbamol 500 mg dose 1 tab p.o. b.i.d. I have given the patient #60 tablets with 1 refill, 2 months' worth of medication. The patient was advised to take this medication only when pain is related to muscle spasming. She is not to drive or operate heavy equipment while on this medication. 4. The patient has requested that we take over writing the Cymbalta and Lyrica for her fibromyalgia symptoms. We typically do not involve ourselves in a treatment for fibromyalgia. We usually allow this to be handled through Rheumatology. The patient states she is in process of altering physician treatments and is requesting that we establish these medications for her fibromyalgia, as she does make a transition from physicians. We have agreed to provide this on a short-term basis. 5. The patient was provided prescription of Lyrica 225 mg dose 1 tab p.o. b.i.d. She was given #180 tablets, which is a 3-month prescription. I also provided refills so she can continue on the therapy. This medication was started by another physician and will continue the medication at current dosing and make adjustments if necessary prior to transitioning back to her PCP. 6. The patient was provided prescription of Cymbalta 60 mg dose 1 tab p.o. q. day. I have given the patient #90, which is a 3-month prescription for mail order medications to reduce her cost. I gave her refills of the medication with the understanding that she will follow up with PCP once she establishes a new physician. 7. We will see the patient back in followup visit in 2 months for a medication [facility] [address] [place] [address] PAIN MANAGEMENT CONSULTATION Name: DEBORAHALLEN DUNCAN Room #: REG [facility] Jessica#: [id number] Admission: 08/27/19 Attend Phys: Prosper Ramsey DO Discharge: Date of : 69 Report #: [id number] management. We will see her earlier if she wishes to look towards the next in the series of epidural injections in the lumbar spine. <ELECTRONICALLY SIGNED> By: Prosper Ramsey DO 08/28/19 1206 1229 [id number] Prosper Ramsey DO /nt
== END ==
LOC: PAIN 09:16
DX: M47.22 Other spondylosis with radiculopathy, cervical region (principal); M79.7 Fibromyalgia; G89.4 Chronic pain syndrome; F11.20 Opioid dependence, uncomplicated

== ENCOUNTER → 2019-11-04 | Outpatient (CLI) | payer OTHER ==
[~2019-11-04] VITALS: Ht 167.6 cm; Wt 102.1 kg
[~2019-11-04] MED LIST changes: +CENTRUM ADULTS1 EACH PO; +COZAAR 25 MG TA25 M1 PO; +MUCINEX600 MG PO; -NORVASC10 MG
--- NOTE | ~2019-11-04 | P ---
[facility] [place] [address] PROCEDURE REPORT Name: ALLEN CABRERA Room #: REG [facility] SheriAlex#: [id number] Admission: 11/04/19 Attend Phys: Nithin Bower Discharge: Date of : 69 Report #: [id number] THIS REPORT FOR: cc: Benjie Palomo MD, Neal A. MD McElhinney, Christian C. MD ~ CC: Nithin Palomo MD DATE OF SERVICE: 11/04/2019 PROCEDURE PERFORMED: Upper endoscopy with biopsies and esophageal dilation. HISTORY OF PRESENT ILLNESS: The patient is a 54-year-old female with a history of heartburn, does not take antacids on a regular basis. She does report some dysphagia at times, also complains of abdominal bloating and abdominal pain. Plan is for EGD and colonoscopy today. DESCRIPTION OF PROCEDURE: The risks and benefits of the procedure were explained to the patient, those risks including but not limited to bleeding, perforation and the risk of sedation. She understood these risks and gave informed consent. Sedation was given using propofol per anesthesia. Next, using a standard Olympus upper endoscope, the scope was placed in the patient's mouth and advanced under direct vision through the esophagus, stomach and into the second portion of the duodenum. The larynx was normal in appearance. The upper and mid esophagus was normal. At the GE junction in the distal esophagus, mild grade A erosive esophagitis was noted. Overall, the gastric mucosa was normal in the fundus and body, mild gastritis was noted in the gastric antrum. Biopsies were obtained to rule out H. pylori. The pylorus was normal and patent. The duodenal bulb, first and second portion were all normal. Random biopsies were obtained to rule out the possibility of celiac sprue. The scope was then brought back up into the patient's stomach and a Savary guidewire was inserted through the scope, leaving the guidewire in place as the scope was then withdrawn. Next, a 51-Palauan Savary dilation was then performed without difficulty. The wire and dilator removed. The scope was reintroduced into the patient's stomach. There was no evidence of mucosal tear after dilation. The scope was then withdrawn and the procedure terminated. The patient tolerated the procedure well. IMPRESSION: 1. Mild grade A erosive esophagitis. 2. Mild gastritis. 3. Otherwise, normal upper endoscopy. RECOMMENDATIONS: [address] [address] PROCEDURE REPORT Name: ALLEN CABRERA Room #: REG [facility] Lopez#: [id number] Admission: 11/04/19 Attend Phys: Nithin Bower Discharge: Date of : 69 Report #: [id number] 1. Await biopsy results. 2. Recommend daily PPI therapy. 3. Observe the patient post-dilation. 4. We will proceed with colonoscopy next today. Thank you for allowing me to participate in her care. By: 1105 1828 Nithin Shepard MD /nt
--- NOTE | ~2019-11-04 | P ---
[facility] [place] [address] PROCEDURE REPORT Name: ALLEN CABRERA [id number] Admission: 11/04/19 Attend Phys: Nithin Bower Discharge: Date of : 69 Report #: [id number] THIS REPORT FOR: cc: Benjie Palomo MD, Neal A. MD McElhinney, Christian C. MD ~ CC: Nithin Palomo MD DATE OF SERVICE: 11/04/2019 PROCEDURE PERFORMED: Colonoscopy with biopsies. HISTORY OF PRESENT ILLNESS: The patient is a 54-year-old female with episode of bright red blood per rectum in August of last year, also complains of abdominal bloating and constipation. No family history of colon cancer. No further bleeding episodes. DESCRIPTION OF PROCEDURE: The risks and benefits of the procedure were explained to the patient, those risks including but not limited to bleeding, perforation and the risk of sedation. She understood these risks and gave informed consent. Sedation was given using propofol per anesthesia. Next, a digital rectal exam showed medium size nonbleeding external hemorrhoids, otherwise normal. Next, using a standard Olympus colonoscope, the scope was placed in the patient's anus and advanced under direct vision to the cecum. The overall prep was good. The cecum and ileocecal valve were normal in appearance. Ascending, transverse and descending colon were normal. A 4 mm sessile polyp was noted in the sigmoid colon. This was removed by cold forceps, otherwise normal. In the rectum, a 3 mm sessile polyp also removed by cold forceps. On retroflexion, small nonbleeding internal hemorrhoids were noted. The scope was then withdrawn and the procedure terminated. The patient tolerated the procedure well. IMPRESSION: 1. Two small colonic polyps. 2. Small internal hemorrhoids, medium size external hemorrhoids, suspect likely source of recent bright red blood per rectum. No evidence of bleeding today. 3. Otherwise, normal colonoscopy. RECOMMENDATIONS: 1. Continue MiraLax on a daily basis for constipation. 2. Analpram on a p.r.n. basis if bleeding recurs. 3. Await biopsy results. 4. If polyps are hyperplastic, repeat in 10 years; if adenomatous polyps, repeat in [address] [address] PROCEDURE REPORT Name: PIPOALLEN RIDLEY Room #: REG [facility] Lopez#: [id number] Admission: 11/04/19 Attend Phys: Nithin Bower Discharge: Date of : 69 Report #: [id number] Thank you for allowing me to participate in her care. By: 1140 1910 Nithin Shepard MD /nt
--- NOTE | 2019-11-05 15:08 | PATH ---
[facility] [address] [address] PATHOLOGY RPT PROCEDURE Name: ALLEN WATSON Room #: REG [facility] Paola.#: [id number] Admission: 11/04/19 Date of : 69 Discharge: Report #: [id number] Path Case #: [id number] [facility] Accession Number: [id number] . 01 Material submitted: . PART A: duodenum - BIOPSY OF DUODENUM TO R/O SPRUE PART B: stomach - BIOPSY OF GASTRITIS TO R/O H. PYLORI PART C: colon - BIOPSY OF SIGMOID POLYP. Modifiers: sigmoid PART D: rectum - BIOPSY OF RECTAL POLYP . 01 Clinical history: . Abdominal pain, bloating, GERD, blood in stool A. Rule out sprue B. Rule out H. pylori . 02 Diagnosis: A. Small bowel mucosa, duodenum, rule out sprue, endoscopic biopsy: - No diagnostic abnormalities. - Negative for villous blunting or increase in intraepithelial lymphocytes. . B. Gastric mucosa, gastritis, rule out H. pylori, endoscopic biopsy: - Mild chronic gastritis with features of reactive gastropathy and focal intestinal metaplasia. - Negative for atrophy or dysplasia. - Negative for Helicobacter pylori (properly controlled immunohistochemical stain performed). . C. Polyp, sigmoid polyp, endoscopic biopsy: - Hyperplastic polyp. - Negative for dysplasia. . D. Polyp, rectal polyp, endoscopic biopsy: - Hyperplastic polyp. - Negative for dysplasia. (IUV:pit 11/05/2019) QTP 11/05/2019 1152 Local . 02 Electronically signed: . Yuni Pedroza MD, Pathologist NPI- [id number] . 01 Gross description: . A. The specimen is received in formalin, labeled "Allen Watson BX of duodenum" and consists of multiple fragments of pink-austin tissue measuring 1.1 x 0.8 x 0.2 cm in aggregate which are entirely submitted in A1. . [address] [address] PATHOLOGY RPT PROCEDURE Name: PIPOALLEN RIDLEYE Room #: REG [facility]#: [id number] Admission: 11/04/19 Date of : 69 Discharge: Report #: [id number] Path Case #: [id number] B. The specimen is received in formalin, labeled "Allen Watson BX of gastritis" and consists of 4 fragments of pink-austin tissue measuring between 0.3 x 0.2 cm and 0.6 x 0.3 cm which are entirely submitted in B1. . C. The specimen is received in formalin, labeled "Allen Watson, BX of sigmoid polyp" and consists of 2 fragments of pink-austin tissue measuring 0.4 x 0.2 cm each which are entirely submitted in C1. . D. The specimen is received in formalin, labeled "Walter, Allen, BX of rectal polyp" and consists of 2 fragments of pink-austin tissue measuring 0.2 x 0.2 cm and 0.4 x 0.2 cm which are entirely submitted in D1. (SDY; 11/04/2019) SYU/SYU 11/04/2019 1916 Local . 02 Pathologist provided ICD-10: K29.50, K63.5, K62.1 . 02 CPT . 623919, 465330, 252205, 972313, W45196 Specimen Comment: A courtesy copy of this report has been sent to [phone], [phone] Specimen Comment: [id number] Specimen Comment: Report sent to / DR JARAMILLO Performed at: [address] [facility], [place], [place] [id number] MD Vik Souza MD Phone: [phone] Performed at: [address] [facility] [id number] MD Yuni Pedroza MD Phone: [phone]
== END | disposition home or self-care (01) ==
LOC: GI 07:56
DX: K62.5 Hemorrhage of anus and rectum (principal); R19.7 Diarrhea, unspecified; K63.5 Polyp of colon; K64.8 Other hemorrhoids; K64.4 Residual hemorrhoidal skin tags; R13.19 Other dysphagia; K29.50 Unspecified chronic gastritis without bleeding; K31.9 Disease of stomach and duodenum, unspecified; K22.10 Ulcer of esophagus without bleeding; I10 Essential (primary) hypertension; K21.9 Gastro-esophageal reflux disease without esophagitis; F32.9 Major depressive disorder, single episode, unspecified; F41.1 Generalized anxiety disorder; G47.30 Sleep apnea, unspecified; F17.210 Nicotine dependence, cigarettes, uncomplicated; Z98.890 Other specified postprocedural states; Z79.899 Other long term (current) drug therapy; Z88.8 Allergy status to other drugs, medicaments and biological substances; Z90.710 Acquired absence of both cervix and uterus
CPT/HCPCS: 62110; 62900

== ENCOUNTER → 2019-11-12 | Outpatient (CLI) | payer OTHER ==
[~2019-11-12] VITALS: Ht 165.1 cm; Wt 103.0 kg
[~2019-11-12] MED LIST changes: +OMEPRAZOLE 20 M20 M1 PO
[2019-11-12 11:24] VITALS: BP 133/81
--- NOTE | 2019-11-12 11:29 | NUR ---
Pain Clinic Assessment: 1. History of Osteoarthritis: NONE History of Rheumatoid Arthritis: NONE 2. Height: 5 ft. 5 in. 165.1 cm. Weight: 227.0 lb. oz. 102.967 kg. Patient's BMI: 37.8 3. Vital Signs: BP: 133/81 Pulse: 93 Resp: 18 Temp: 02 Sat: 98 ECG Mon: 4. Pain Intensity: 7 5. Fall Risk: Dizziness: N Needs help standing or walking: N Fallen in the last 3 months: N Fall risk comments: 6. Patient on Blood Thinner: None 7. History of Hypertension: Y 8. Opioid Therapy greater than 6 weeks: Y Opiate Contract Signed: 05/23/18 9. Risk Assessment Tool Provided: LOW RISK 0 10. Functional Assessment Tool: 56/70 11. Recreational Drug Use: Never Drug Type: Tobacco Use: Current Every Day Smoker Tobacco Type: Cigarettes Amount or Packs/day: 10 per day How Many Years: 15 Alcohol Use: No Frequency: Quant:
--- NOTE | 2019-11-13 11:52 | HPC ---
[facility] [place] [address] PAIN MANAGEMENT CONSULTATION Name: ALLEN CABRERA Room #: REG GUILHERME SheriJyothiAlex#: [id number] Admission: 11/12/19 Attend Phys: Prosper Ramsey DO Discharge: Date of : 69 Report #: [id number] THIS REPORT FOR: cc: Benjie Palomo MD, Neal A. MD Johnson, James E. DO ~ DATE OF SERVICE: 11/12/2019 REFERRING PHYSICIAN: Benjie Palomo MD CHIEF COMPLAINT: Neck pain, left upper extremity pain with paresthesias, generalized body pain. HISTORY OF PRESENT ILLNESS: As you know, the patient is a 54-year-old female returning in followup visit with generalized pain disorder, typical for myofascial pain syndrome, but is also experiencing recurrent cervical radiculopathy involving the left upper extremity. She denies injury or trauma that may have led to symptom development, but states that her neck pain was exacerbated with recent hospitalization. Apparently, she had some complications which brought her back to the Emergency Department this last Monday. This has subsequently resolved. Unfortunately, she continues to experience cervical radicular symptoms that at present are only causing about 7/10 pain. She also has a point-specific tenderness to palpation over the paraspinal musculature of the upper thoracic area that has been present for about 1 week. She returns today in followup visit to discuss treatment options and receive refill of medications. She denies injury or trauma to the cervical spine or upper back and may have been the source of the patient's symptoms. ALLERGIES: ADHESIVE TAPE, ACETAMINOPHEN, and CEFTRIAXONE. CURRENT MEDICATIONS: Losartan 50 mg 2 tabs p.o. q. day, amlodipine 10 mg per day, alprazolam 0.5 mg q. 8 hours p.r.n., cholecalciferol 5000 units per day, duloxetine 60 mg b.i.d., pregabalin 225 mg b.i.d., methocarbamol 500 mg b.i.d., sertraline 10 mg once a day, Butrans 20 mcg per week, albuterol 2 puffs q. 4 hours p.r.n. shortness of air. SOCIAL HISTORY: The patient denies tobacco, alcohol or IV illicit drug use. She states she is working and receiving workmen's compensation, unaccompanied today. IMAGING: No new imaging available. PHYSICAL EXAMINATION: VITAL SIGNS: Blood pressure 131/81, pulse is 93, respiratory rate [address] [address] PAIN MANAGEMENT CONSULTATION Name: ALLEN CABRERA Room #: REG [facility]#: [id number] Admission: 11/12/19 Attend Phys: Prosper Ramsey DO Discharge: Date of : 69 Report #: [id number] unlabored. The patient is 98% on room air. Height 5 feet 5 inches tall, weight 227 pounds and BMI calculated 37.8. GENERAL: Well-developed, well-nourished, well-hydrated exogenously obese 54-year-old female appearing stated age. Pain is rated today around 7/10. HEENT: Normocephalic, atraumatic. Pupils equal, round, reactive to light. Speech is fluent. The patient deemed a good historian. EXTREMITIES: Show no clubbing, no cyanosis, no edema. MUSCULOSKELETAL: Upper extremity strength remains symmetrical 5/5. Muscle bulk and tone is symmetrical in comparing left upper extremity to right. Spurling's test is equivocal to the left and negative to right. There is point specific palpatory tenderness over the right paraspinal muscles of the thoracic spine at approximately T7-T8. Deep palpation causes intensification of pain, no radiation of symptoms. ASSESSMENT: 1. Chronic neck pain. 2. Cervical radiculopathy. 3. Cervical spondylosis with radicular symptoms. 4. Myofascial pain. 5. Fibromyalgia. 6. Chronic intractable pain. 7. Opioid dependency. PLAN: 1. The patient returns today in followup visit indicating worsening of generalized pain due to recent hospitalization and a possible strain put upon her after undergoing surgery and then having to be seen quickly in the Emergency Department due to complications from that surgery. These have resolved, but the generalized pain remains. This is likely due to her underlying myofascial syndrome, also known as fibromyalgia. We would recommend the patient use the appropriate treatment course for this pathology, which is typically exercise, weight loss, utilizing neuropathic medications and cognitive behavioral therapy. The patient will continue current medications without changes. 2. The patient does have point-specific pain in and around the T7-T8 area on the right, appears to be myofascial in origin. There is one specific tender point, but no specific trigger points. This could be related to her underlying myofascial pain or could be myotomal distribution of recurrent cervical radiculopathy. Treatment options remain similar. We would recommend massage to the area, possible trigger point injection if necessary, though we wish to reduce the patient's steroid exposure if at all possible. Certainly if it continues and it is related to the cervical issues, cervical epidural injection would be recommended. 3. The patient is having some increasing left upper extremity numbness and tingling consistent with her cervical radicular reports. She states at this point the numbness and tingling is not significant enough to utilize a cervical epidural injection, though she is going to consider this as an option if it does [facility] [address] [place] [address] PAIN MANAGEMENT CONSULTATION Name: ALLEN CABRERA Room #: REG Violeta Paola.#: [id number] Admission: 11/12/19 Attend Phys: Prosper Ramsey DO Discharge: Date of : 69 Report #: [id number] progress. We will be available to see the patient back in followup visit to undergo cervical epidural injection if she wishes to do so. 4. The patient was provided a prescription of buprenorphine 20 mcg patch. I have given the patient 4 patches to be changed every 7 days. She was given a prescription for today and 4 weeks from today. The patient was given the prescriptions in written form to follow up with her pharmacy. 5. We will see the patient back in followup visit in 2 months for medication management. Otherwise, we will see her back for the next in the series of cervical epidural injections if her pain returns. <ELECTRONICALLY SIGNED> By: Prosper Ramsey DO 11/13/19 1152 [id number] Prosper Ramsey DO /nt
== END ==
LOC: PAIN 11-11 12:43
DX: M47.22 Other spondylosis with radiculopathy, cervical region (principal); M79.7 Fibromyalgia; F11.20 Opioid dependence, uncomplicated; Z88.8 Allergy status to other drugs, medicaments and biological substances

== ENCOUNTER → 2020-01-08 | Outpatient (CLI) | payer OTHER ==
[~2020-01-08] VITALS: Ht 165.1 cm; Wt 103.1 kg
[~2020-01-08] MED LIST changes: +BACLOFEN 10MG T10 MG PO
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
[2020-01-08 14:27] VITALS: BP 119/69
--- NOTE | 2020-01-08 14:38 | NUR ---
Pain Clinic Assessment: 1. History of Osteoarthritis: NONE History of Rheumatoid Arthritis: NONE 2. Height: 5 ft. 5 in. 165.1 cm. Weight: 227.4 lb. oz. 103.148 kg. Patient's BMI: 37.8 3. Vital Signs: BP: 119/69 Pulse: 89 Resp: 16 Temp: 02 Sat: 97 ECG Mon: 4. Pain Intensity: 4 5. Fall Risk: Dizziness: N Needs help standing or walking: N Fallen in the last 3 months: N Fall risk comments: 6. Patient on Blood Thinner: None 7. History of Hypertension: Y 8. Opioid Therapy greater than 6 weeks: Y Opiate Contract Signed: 05/23/18 9. Risk Assessment Tool Provided: LOW RISK 0 10. Functional Assessment Tool: / 11. Recreational Drug Use: Never Drug Type: Tobacco Use: Current Every Day Smoker Tobacco Type: Cigarettes Amount or Packs/day: How Many Years: Alcohol Use: No Frequency: Quant:
== END ==
LOC: PAIN 07:57
DX: M47.812 Spondylosis without myelopathy or radiculopathy, cervical region (principal); M79.604 Pain in right leg; M79.642 Pain in left hand; M79.605 Pain in left leg; M79.641 Pain in right hand; R20.2 Paresthesia of skin; M79.7 Fibromyalgia; G89.29 Other chronic pain; M54.5 Low back pain; F11.20 Opioid dependence, uncomplicated; Z88.1 Allergy status to other antibiotic agents; Z88.5 Allergy status to narcotic agent; Z79.1 Long term (current) use of non-steroidal anti-inflammatories (NSAID); Z79.899 Other long term (current) drug therapy

== ENCOUNTER → 2020-01-21 | Outpatient (CLI) | payer OTHER ==
[~2020-01-21] VITALS: Ht 165.1 cm; Wt 104.1 kg
[2020-01-21 09:03] VITALS: BP 140/83
--- NOTE | 2020-01-21 09:20 | NUR ---
Pain Clinic Assessment: 1. History of Osteoarthritis: NONE History of Rheumatoid Arthritis: NONE 2. Height: 5 ft. 5 in. 165.1 cm. Weight: 229.4 lb. oz. 104.055 kg. Patient's BMI: 38.2 3. Vital Signs: BP: 140/83 Pulse: 75 Resp: 16 Temp: 02 Sat: 100 ECG Mon: 4. Pain Intensity: 3 5. Fall Risk: Dizziness: N Needs help standing or walking: N Fallen in the last 3 months: N Fall risk comments: 6. Patient on Blood Thinner: None 7. History of Hypertension: Y 8. Opioid Therapy greater than 6 weeks: Y Opiate Contract Signed: 05/23/18 9. Risk Assessment Tool Provided: LOW RISK 0 10. Functional Assessment Tool: / 11. Recreational Drug Use: Never Drug Type: Tobacco Use: Current Every Day Smoker Tobacco Type: Amount or Packs/day: How Many Years: Alcohol Use: No Frequency: Quant:
--- NOTE | 2020-01-22 12:58 | HPC ---
[facility] [place] [place] [address] PAIN MANAGEMENT CONSULTATION Name: ALLEN CABRERA Room #: REG GUILHERME [place].#: [id number] Admission: 01/21/20 Attend Phys: Prosper Ramsey DO Discharge: Date of : 69 Report #: [id number] THIS REPORT FOR: cc: Benjie Palomo MD, Neal A. MD Johnson, James E. DO ~ DATE OF SERVICE: 01/21/2020 CHIEF COMPLAINT: Neck pain, left upper extremity pain and paresthesias. HISTORY OF PRESENT ILLNESS: As you know, the patient is a 54-year-old female who has returned today in followup visit with continued neck pain, left upper extremity pain with paresthesias. The patient states that over the past couple of days, she began to experience some symptoms of potential sinus infection. She has been experiencing a light cough, but no specific fevers, but does report some myalgias. She started antibiotics yesterday per the request of her PCP in the form of Augmentin for a 10-day course. She is returning today requesting a cervical epidural injection to address chronic cervical radicular pain for which she places pain score today no greater than 3/10. She denies injury or trauma to the cervical area that may have caused recurrence of symptoms. She does report some swelling in her neck and painful swallowing today. She also reports that she has had labs drawn that does show elevated white count confirming active infection. ALLERGIES: ACETAMINOPHEN, NAPROXEN, ADHESIVE TAPES AND CEFTRIAXONE. CURRENT MEDICATIONS: Augmentin 875/125 mg b.i.d., baclofen 10 mg t.i.d., buprenorphine 20 mcg per week, pregabalin 225 mg twice a day, omeprazole 20 mg per day, guaifenesin 600 mg p.r.n., losartan 25 mg per day, albuterol 2 puffs q. 4 hours p.r.n., multivitamin 1 tab per day, cetirizine 10 mg per day, duloxetine 30 mg once a day, vitamin D3 50,000 units every 4 days, alprazolam 0.5 mg once a day, amlodipine 10 mg once a day. SOCIAL HISTORY: The patient denies IV or illicit drug use. Denies any chronic alcohol use. She continues to smoke despite our recommendations to discontinue the activity. She is working, not receiving workmen compensation, unaccompanied today. IMAGING: No new imaging available. PHYSICAL EXAMINATION: VITAL SIGNS: Blood pressure 140/83, pulse 75, respiratory rate 16 and unlabored. The patient is 100% on room air. Height 5 feet 5 inches tall, weight 229.4 pounds, BMI calculated 38.2. GENERAL: Well-developed, well-nourished, well-[place] [address] PAIN MANAGEMENT CONSULTATION Name: ALLEN CABRERA Room #: REG [facility].#: [id number] Admission: 01/21/20 Attend Phys: Prosper Ramsey DO Discharge: Date of : 69 Report #: [id number] 54-year-old female appearing stated age, pain is rated today 3/10. HEENT: Normocephalic, atraumatic. Pupils equal, round, reactive to light. Speech fluent. EXTREMITIES: Show no clubbing, no cyanosis, no edema. MUSCULOSKELETAL: Upper extremity strength remains symmetrical today 5/5. Muscle bulk and tone equal and symmetrical in comparing left upper extremity to right. Spurling test is equivocal on the left, negative right. ASSESSMENT: 1. Chronic neck pain. 2. Chronic cervical radiculopathy. 3. Cervical spondylosis with radicular symptoms. 4. Myofascial pain. 5. Fibromyalgia. 6. Active infection. PLAN: 1. The patient returns today in followup visit indicating elevated white count based on recent blood draw done yesterday as well as swelling in the throat and sore throat. She does report some generalized myalgias, but no specific fever. She kept today's appointment as she did not feel "as bad yesterday." She returns today having started antibiotic therapy per the request of her PCP in the form of Augmentin. At this point, given the COVID pandemic, we would recommend we delay a cervical epidural injection from an elective procedure standpoint as there is no confirmation if the patient has typical sinusitis. There is a possibility the patient could have been exposed to COVID-19 and this could be early signs of the disease process. This process, as you are aware, does not present in typical fashion in every individual. We would recommend conservative treatment as was guidelines in regards to COVID-19 injections and steroid exposures. The patient is agreeable. 2. The patient and I did discuss her concerns about the authorization process. This should be no problem to adjust as the patient is actively infected based on her white cell count and report and thus delaying the injection is the most appropriate and standard of care approach. We will adjust the authorization for the patient to receive the injection in the next week to 2 weeks based on improvement in symptoms. We will contact the patient's insurer to advice of our delay secondary to infection. 3. No medication changes made at today's visit. The patient is to continue her current Augmentin dosing per her PCP. She has taken 1 dose and has 9 days remaining. She will continue this medication as directed. 4. We will see the patient back in followup visit once her symptoms have begun to improve. We are hopeful this could be as early as next week. She will need [facility] [address] [place] [address] PAIN MANAGEMENT CONSULTATION Name: ALLEN CABRERA Room #: REG GUILHERME Lopez#: [id number] Admission: 01/21/20 Attend Phys: Prosper Ramsey DO Discharge: Date of : 69 Report #: [id number] to be on the antibiotics for at least 7 days if this is typical sinusitis/sinus infection. She will contact our clinic if she begins to see improvement. <ELECTRONICALLY SIGNED> By: Prosper Ramsey DO 01/22/20 1258 [id number] 1200 Prosper Ramsey DO /nt
== END ==
LOC: PAIN 06:48
DX: M47.22 Other spondylosis with radiculopathy, cervical region (principal); M25.512 Pain in left shoulder; R20.2 Paresthesia of skin; M79.7 Fibromyalgia; Z88.2 Allergy status to sulfonamides; Z88.8 Allergy status to other drugs, medicaments and biological substances; Z79.899 Other long term (current) drug therapy

== ENCOUNTER → 2020-01-28 | Outpatient (CLI) | payer OTHER ==
[~2020-01-28] VITALS: Ht 165.1 cm; Wt 74.8 kg
[~2020-01-28] MED LIST changes: +ESTRACE0.5 MG PO; +LUNESTA3 MG PO; +TRAZODONE HCL50 MG PO; +VOLTAREN100 GM TOP
[2020-01-28 09:05] VITALS: BP 128/65
--- NOTE | 2020-01-28 09:24 | NUR ---
Pain Clinic Assessment: 1. History of Osteoarthritis: NONE History of Rheumatoid Arthritis: NONE 2. Height: 5 ft. 5 in. 165.1 cm. Weight: 165.0 lb. oz. 74.844 kg. Patient's BMI: 27.5 3. Vital Signs: BP: 128/65 Pulse: 76 Resp: 14 Temp: 02 Sat: 99 ECG Mon: 4. Pain Intensity: 6-7 5. Fall Risk: Dizziness: N Needs help standing or walking: N Fallen in the last 3 months: N Fall risk comments: 6. Patient on Blood Thinner: None 7. History of Hypertension: Y 8. Opioid Therapy greater than 6 weeks: Y Opiate Contract Signed: 05/23/18 9. Risk Assessment Tool Provided: LOW RISK 0 10. Functional Assessment Tool: 56/ 11. Recreational Drug Use: Never Drug Type: Tobacco Use: Current Every Day Smoker Tobacco Type: Cigarettes Amount or Packs/day: 1/2 How Many Years: 22 Alcohol Use: No Frequency: Quant:
--- NOTE | 2020-01-28 15:39 | HPC ---
[facility] [place] [address] PAIN MANAGEMENT CONSULTATION Name: ALLEN CABRERA Room #: REG [facility].#: [id number] Admission: 01/28/20 Attend Phys: Prosper Ramsey DO Discharge: Date of : 69 Report #: [id number] THIS REPORT FOR: cc: Benjie Palomo MD, Neal A. MD Johnson, James E. DO ~ DATE OF SERVICE: 01/28/2020 REFERRING PHYSICIAN: Benjie Palomo MD CHIEF COMPLAINT: Neck pain, left upper extremity pain and paresthesias, generalized body pain. HISTORY OF PRESENT ILLNESS: As you know, the patient is a 54-year-old female who returns today in followup visit to undergo cervical epidural injection under fluoroscopic guidance to address cervical radicular symptoms involving the neck and left upper extremity. The patient reports good efficacy with these injections. She returns today, denying any new injury or trauma that may have led to symptom reoccurrence. She has completed her current antibiotic therapy and is reporting improvement in her chronic sinusitis. She returns for the cervical epidural injection. She is also describing today, generalized body pain consistent with fibromyalgia like symptoms. She has 18/18 tender points indicative of disease process. She wishes to discuss this as well today. ALLERGIES: ACETAMINOPHEN, NAPROXEN, ADHESIVE TAPE and CEFTRIAXONE. CURRENT MEDICATIONS: Augmentin, baclofen, buprenorphine, pregabalin, omeprazole, guaifenesin, losartan, albuterol, multivitamin, sertraline, duloxetine, vitamin D3, alprazolam, amlodipine, and zolpidem. SOCIAL HISTORY: The patient denies IV or illicit drug use. Denies any chronic alcohol use. Continues to smoke despite our recommendations to discontinue secondary to the effects of chronic smoking on chronic pain. She is working, not receiving workmen's compensation, unaccompanied today. IMAGING: No new imaging available. PHYSICAL EXAMINATION: VITAL SIGNS: Blood pressure 120/65, pulse 76, respiratory rate 14 and unlabored. The patient is 99% on room air. Height 5 feet 5 inches tall, weight 165 pounds, BMI calculated 27.5. GENERAL: Well-developed, well-nourished, well-hydrated, 54-year-old female appearing stated age. Pain is rated today at around 6-7/10. HEENT: Normocephalic, atraumatic. Pupils equal, round, reactive to light. NEUROLOGIC: Speech fluent. The patient deemed a good historian. [address] [address] PAIN MANAGEMENT CONSULTATION Name: ALLEN CABRERA Room #: REG [facility].#: [id number] Admission: 01/28/20 Attend Phys: Prosper Ramsey DO Discharge: Date of : 69 Report #: [id number] EXTREMITIES: Show no clubbing, no cyanosis, no edema. MUSCULOSKELETAL: Upper extremity strength remains symmetrical, 5/5. Muscle bulk and tone remains symmetrical when comparing left upper extremity to right. Cervical provocation testing is met with some increasing pain, mainly on the left. There is palpatory tenderness over the paraspinal musculature. No spinous process tenderness. Spurling's test is equivocal left, negative right. The patient has 18/18 tender points indicative of fibromyalgia. ASSESSMENT: 1. Chronic neck pain. 2. Chronic cervical radiculopathy. 3. Cervical spondylosis with radicular symptoms. 4. Myofascial pain. 5. Fibromyalgia. 6. Chronic intractable pain. PLAN: 1. The patient returns today in followup visit to undergo cervical epidural injection under fluoroscopic guidance. She has nearly completed her antibiotic therapy for which we delayed the injection from our last visit due to the effects of steroid on immune response. She is now nearly complete with the antibiotic therapy and her symptoms of sinusitis has improved and thus we will move forward with a cervical epidural injection to address cervical radiculopathy. As you are aware, the patient has minor changes in the cervical spine, which is believed to be the source of her cervical radicular pain. She has been advised risks and benefits of this procedure, states understood and wished to proceed. 2. The patient is describing generalized body pain consistent with fibromyalgia. She has 18/18 tender points indicative of the disease process. We discussed with the patient that the treatment options for fibromyalgia are limited, but the goal standard treatment is exercise either land-based or aqua-based. The patient does not participate in any of these activities and we recommend strongly she initiate a treatment course that shows best efficacy for the disease and that is exercise either land-based or aqua-based. We also discussed the medications that are somewhat effective at treating this disease process. They include nortriptyline, amitriptyline, Cymbalta, Lyrica, and gabapentin. The patient is currently taking Lyrica at higher dosing, yet is not noticing improvement, which is fairly typical for the medications in fibromyalgia. We recommend she can initiate the physical therapy immediately. 3. We have discussed with the patient again today in entirety, the reason why we request smoking cessation in patients with generalized pain disorder. It has been shown to be a contributor to generalized pain, specifically via the nicotinic receptors in the descending pain pathway by smoking. There is down regulation of the nicotinic receptors due to continual firing of this receptor secondary to smoking. This reduces the potential of generating a response to chronic pain and reducing the symptoms by endogenous means. The patient and I [facility] [address] [place] [address] PAIN MANAGEMENT CONSULTATION Name: ALLEN CABRERA Room #: REG [facility].#: [id number] Admission: 01/28/20 Attend Phys: Prosper Ramsey DO Discharge: Date of : 69 Report #: [id number] discussed this at length today. If she continues to smoke, her generalized pain will be present without improvement. We recommend strongly she discontinue this activity as quickly as possible. 4. We have also discussed with the patient today changing her location where she lives as barometric pressures do have a direct effect upon chronic intractable pain and we recommend that she make adjustments in her living conditions as a potential treatment option. She will consider this as well. 5. We will see the patient back in followup visit for medication management. We have advised the patient that opioid medications have no effect on fibromyalgia symptoms and will not be escalated to address these generalized pain issues. She should follow the recommended guidelines from the fibromyalgia chromosomal disorders counselor for treatment. PROCEDURE NOTE: DESCRIPTION OF PROCEDURE: C7-T1 cervical epidural steroid injection under fluoroscopic guidance. After obtaining written consent, the patient was taken back to fluoroscopy suite, placed in a prone position with separate pillows under chest and forehead to decrease cervical lordosis. Skin overlying cervical area was then prepped and draped in aseptic fashion. C7-T1 cervical interspace was identified by AP fluoroscopy. Skin and subcutaneous tissue overlying target site of injection was anesthetized with 3 mL of 1% lidocaine. A 20-gauge 3-1/2 inch Tuohy needle advanced under fluoroscopic guidance towards the epidural space using a midline approach. Epidural space identified using loss of resistance to air technique. After negative aspiration for heme or cerebrospinal fluid, 1 mL of Omnipaque injected. A cervical epidurogram was confirmed using both AP and oblique fluoroscopy. After negative aspiration for heme or cerebrospinal fluid, 5 mL of a solution containing 2 mL 40 mg per mL, 80 mg total triamcinolone along with 3 mL of lidocaine 1% injected slowly. Needle retracted approximately half way, flushed with 1 mL of 1% lidocaine and then removed. Sterile bandage placed over injection site. There were no new motor deficits present in the upper extremities following procedure. The patient tolerated procedure well, carefully escorted to recovery room in stable condition. No apparent complications. After meeting discharge criteria, the patient discharged home. <ELECTRONICALLY SIGNED> By: Prosper Ramsey DO 01/28/20 1539 [id number] 1230 Prosper Ramsey DO /nt
== END ==
LOC: PAIN 06:49
PROVIDERS: ATTEND Anesthesiology Pain Medicine
DX: M47.22 Other spondylosis with radiculopathy, cervical region (principal); G89.29 Other chronic pain; M79.7 Fibromyalgia; F17.210 Nicotine dependence, cigarettes, uncomplicated; Z98.890 Other specified postprocedural states; Z79.899 Other long term (current) drug therapy

== ENCOUNTER → 2020-02-14 | Outpatient (CLI) | payer OTHER ==
[~2020-02-14] MED LIST changes: -ESTRACE0.5 MG PO
== END ==
LOC: ULTRA 11:24 → RAD 11:24
DX: Z12.31 Encounter for screening mammogram for malignant neoplasm of breast (principal); R14.0 Abdominal distension (gaseous); Z90.710 Acquired absence of both cervix and uterus

== ENCOUNTER → 2020-03-04 | Outpatient (CLI) | payer OTHER ==
[~2020-03-04] VITALS: Ht 165.1 cm; Wt 101.2 kg
[~2020-03-04] MED LIST changes: +ESTRACE0.5 MG PO
--- NOTE | ~2020-03-04 | HPC ---
[facility] [place] [address] PAIN MANAGEMENT CONSULTATION Name: ALLEN CABRERA Room #: REG [facility] M..#: [id number] Admission: 03/04/20 Attend Phys: Prosper Ramsey DO Discharge: Date of : 69 Report #: [id number] THIS REPORT FOR: cc: Benjie Palomo MD, Neal A. MD Johnson, James E. DO ~ CC: Prosper Palomo MD DATE OF SERVICE: 03/04/2020 REFERRING PHYSICIAN: Benjie Palomo MD CHIEF COMPLAINT: Neck pain, left upper extremity pain and paresthesias, chronic generalized body pain. HISTORY OF PRESENT ILLNESS: As you know, the patient is a 54-year-old female who suffers from chronic cervical radiculopathy, which was recently addressed with cervical epidural injection with near 100% improvement in overall pain. She continues to experience generalized body pain secondary to fibromyalgia. She returns today in followup visit requesting refill on medications. She is denying any side effects to the therapy. She recently ran out of medication while out of town. We attempted to provide her with refill of medications, but this was not successful due to restrictions with transferring opioid medications across state lines. She went without the medication for 2 days and did note significant pain exacerbation. She returns today in followup visit for refill on medications. She is currently denying any side effects. She is placing her current pain score at no greater than 6-7/10, but states she is doing very well. ALLERGIES: ACETAMINOPHEN, NAPROXEN, ADHESIVE TAPES and CEFTRIAXONE. CURRENT MEDICATIONS: Amlodipine 10 mg per day, alprazolam 0.5 mg q. 8 hours, vitamin D3 50,000 units every 3-4 days, duloxetine 30 mg 2 tabs per day, cetirizine 10 mg once a day, multivitamin 1 tab per day, albuterol 2 puffs q. 4 hours p.r.n., losartan 25 mg once a day, guaifenesin 600 mg p.r.n., omeprazole 20 mg per day, Augmentin ____/125 mg twice a day, trazodone 50 mg p.o. at bedtime, Lunesta 3 mg p.o. bedtime, Butrans 20 mcg patch q. week, baclofen 10 mg t.i.d. p.r.n. muscle spasms, diclofenac sodium 1% gel apply topically up to 4 times a day, pregabalin 225 mg twice a day. SOCIAL HISTORY: The patient denies alcohol, IV or illicit drug use. She continues to smoke despite recommendations to discontinue this activity and how it affects her chronic pain. She is working, not receiving workmen's compensation, unaccompanied today. [address] [address] PAIN MANAGEMENT CONSULTATION Name: ALLEN CABRERA Room #: REG [facility].#: [id number] Admission: 03/04/20 Attend Phys: Prosper Ramsey DO Discharge: Date of : 69 Report #: [id number] IMAGING: No new imaging available. PHYSICAL EXAMINATION: VITAL SIGNS: Blood pressure 126/74, pulse 66, respiratory rate 18 and unlabored. The patient is 100% on room air. Height 5 feet 5 inches tall, weight 233 pounds, BMI calculated 37.1. GENERAL: Well-developed, well-nourished, well-hydrated exogenously obese 54-year-old female appearing stated age, pain is rated today at 6-7/10. HEENT: Normocephalic, atraumatic. Pupils are equal, round and reactive. EXTREMITIES: Show no clubbing, no cyanosis, no edema. MUSCULOSKELETAL: Upper extremity strength appears symmetrical 5/5, intact to light touch from C5 to T1 dermatomes, again from L1 through S2 dermatomes. Spurling's test is equivocal on the left, negative right. Tender to palpation at 18/18, tender points indicative of fibromyalgia. ASSESSMENT: 1. Chronic neck pain. 2. Cervical radiculopathy. 3. Cervical spondylosis with radiculopathy. 4. Myofascial pain. 5. Fibromyalgia. 6. Chronic low back pain. 7. Opioid dependency. PLAN: 1. The patient returns today in followup visit requesting refill on medications. She feels medications are working beneficially for pain control. She states that after the cervical epidural injection at her last visit, her symptoms have improved significantly. She feels that a major contributor to her overall pain is the cervical spine. She is pleased with response to cervical epidural injection, returning only today for followup and medication management. The patient is denying side effects to the medications including sleepiness, disorientation, confusion, mental slowing and wishes to continue therapy. We reviewed the fact that opiate medications are being used to provide analgesia adequate to support activities of daily living, not attempting to achieve a specific pain score on the 0-10 Visual Analog Scale. The current opiate medications are providing sufficient analgesia to allow the patient to participate in activities of daily living. The patient is not exhibiting any aberrant behavior suggestive of drug diversion. The patient is not having any adverse reactions to medications. The patient is not suffering from daytime somnolence or mental acuity changes. The patient is managing opiate-induced constipation with appropriate [id number]-[id number] agents and dietary considerations. The patient was counseled on concern for caution with operating a motor vehicle while using opiate medications. [facility] [address] [place] [address] PAIN MANAGEMENT CONSULTATION Name: ALLEN CABRERA Room #: REG GUILHERME Guevara.#: [id number] Admission: 03/04/20 Attend Phys: Prosper Ramsey DO Discharge: Date of : 69 Report #: [id number] A physical exam was performed and the patient's functional status was evaluated. All patients with back pain were advised against the bed rest greater than 4 days and were advised to return to normal activities. Pain score assessment was noted and the treatment plan was reviewed with the patient. All current medications, both prescribed and OTC were reviewed and reconciled on the electronic medical record. Tobacco screening was accomplished and smoking cessation was advised when indicated. BMI was noted and diet/exercise modification was recommended for all patients following outside normal parameters. I reviewed with the patient today their responsibilities to safeguard prescription medications, reviewed their responsibility to utilize medications only as prescribed by the physician. They are to seek and receive pain medications only from 1 physician group ([facility]). They are to use 1 pharmacy and keep the clinic informed if they change pharmacies. Their responsibilities include making followup visits in a timely fashion and to avoid abrupt discontinuation of medication usage. Their responsibilities further include bringing their medications (bottles from the pharmacy with residual pills) to the visit for possible confirmation of pill counts and the patient understands it is their responsibility to submit to random drug screens to ensure both that the medications prescribed are present, and that no other controlled substances are present. All prescriptions provided today were generated electronically. 2. The patient was provided prescription of Butrans patch 20 mcg patch q. week I have given the patient #4 patches to release today, 8 weeks from today, 3 months' worth of medication. All prescriptions provided to the patient in written form. 3. The patient was provided prescription of Lyrica 225 mg dose 1 tab p.o. b.i.d. I have given the patient #180 tablets, which is 3 months' worth of medication. Prescription provided to the patient in written form. 4. The patient was provided refill prescription of Voltaren gel 100 gram tubes 2 tubes with 2 refills, 3 months' worth of medication. 5. We plan to see the patient back in followup visit in 3 months for medication management. At that time, we will discuss other treatment options for fibromyalgia. She can return at any time to discuss next in the series of cervical epidural injections. By: 1443 14 Prosper Ramsey DO /nt
[2020-03-04 13:46] VITALS: BP 126/74
--- NOTE | 2020-03-04 13:58 | NUR ---
Pain Clinic Assessment: 1. History of Osteoarthritis: NONE History of Rheumatoid Arthritis: NONE 2. Height: 5 ft. 5 in. 165.1 cm. Weight: 223.0 lb. oz. 101.152 kg. Patient's BMI: 37.1 3. Vital Signs: BP: 126/74 Pulse: 66 Resp: 16 Temp: 02 Sat: 100 ECG Mon: 4. Pain Intensity: 6-7 5. Fall Risk: Dizziness: N Needs help standing or walking: N Fallen in the last 3 months: N Fall risk comments: 6. Patient on Blood Thinner: None 7. History of Hypertension: Y 8. Opioid Therapy greater than 6 weeks: Y Opiate Contract Signed: 05/23/18 9. Risk Assessment Tool Provided: LOW RISK 0 10. Functional Assessment Tool: 56/ 11. Recreational Drug Use: Never Drug Type: Tobacco Use: Current Every Day Smoker Tobacco Type: Amount or Packs/day: How Many Years: Alcohol Use: No Frequency: Quant:
== END ==
LOC: PAIN 13:30
PROVIDERS: ATTEND Anesthesiology Pain Medicine
DX: M47.22 Other spondylosis with radiculopathy, cervical region (principal); M79.642 Pain in left hand; R20.2 Paresthesia of skin; F11.20 Opioid dependence, uncomplicated; M79.10 Myalgia, unspecified site; M79.7 Fibromyalgia; Z88.8 Allergy status to other drugs, medicaments and biological substances; Z79.899 Other long term (current) drug therapy

== ENCOUNTER → 2020-04-14 | Outpatient (CLI) | payer OTHER ==
[~2020-04-14] VITALS: Ht 165.1 cm; Wt 101.2 kg
[2020-04-14 10:21] VITALS: BP 131/79
--- NOTE | 2020-04-14 10:30 | NUR ---
Pain Clinic Assessment: 1. History of Osteoarthritis: NONE History of Rheumatoid Arthritis: NONE 2. Height: 5 ft. 5 in. 165.1 cm. Weight: 223.0 lb. oz. 101.152 kg. Patient's BMI: 37.1 3. Vital Signs: BP: 131/79 Pulse: 74 Resp: 16 Temp: 02 Sat: 98 ECG Mon: 4. Pain Intensity: 6-7 5. Fall Risk: Dizziness: N Needs help standing or walking: N Fallen in the last 3 months: N Fall risk comments: 6. Patient on Blood Thinner: None 7. History of Hypertension: Y 8. Opioid Therapy greater than 6 weeks: Y Opiate Contract Signed: 05/23/18 9. Risk Assessment Tool Provided: LOW RISK 0 10. Functional Assessment Tool: 56/ 11. Recreational Drug Use: Never Drug Type: Tobacco Use: Current Every Day Smoker Tobacco Type: Amount or Packs/day: How Many Years: Alcohol Use: No Frequency: Quant:
--- NOTE | 2020-04-15 14:21 | HPC ---
[facility] [address] [address] PAIN MANAGEMENT CONSULTATION Name: ALLEN CABRERA Room #: REG [facility].#: [id number] Admission: 04/14/20 Attend Phys: Prosper Ramsey DO Discharge: Date of : 69 Report #: [id number] THIS REPORT FOR: cc: Benjie Palomo MD, Neal A. MD Johnson, James E. DO ~ DATE OF SERVICE: 04/14/2020 CHIEF COMPLAINT: Back pain, left lower extremity pain with paresthesias. HISTORY OF PRESENT ILLNESS: As you know, the patient is a 54-year-old female who suffers from chronic cervical radiculopathy, which is addressed with cervical epidural injections and medication management. She does well with injections involving the cervical spine. She has begun to experience increasing back pain with radiation down the left leg consistent with lumbar radiculopathy. The patient has had symptoms in the past and apparently was treated for lumbar issues as recent as 2019. She has been doing very well from that standpoint, but unfortunately has had recurrence of symptoms. She returns today stating pain level of around 6-7/10 involving the left low back and left lower extremity. The patient denies injury or trauma that may have led to symptom reoccurrence. She returns today to discuss the opportunity of undergoing lumbar epidural injection under fluoroscopic guidance. ALLERGIES: ACETAMINOPHEN, NAPROXEN, ADHESIVE TAPE AND CEFTRIAXONE. CURRENT MEDICATIONS: See extensive list in chart. SOCIAL HISTORY: The patient denies alcohol, IV or illicit drug use. She continues to smoke despite recommendations to discontinue this activity. She is working, not receiving workmen's compensation, unaccompanied today. IMAGING: No new imaging available. PHYSICAL EXAMINATION: VITAL SIGNS: Blood pressure 131/79, pulse 74, respiratory rate 16 and unlabored. The patient is 98% on room air. Height 5 feet 5 inches tall, weight 223 pounds, BMI calculated 37.1. GENERAL: Well-developed, well-nourished, well-hydrated exogenously obese 54-year-old female appearing stated age, pain is rated anywhere from 6-7/10. HEENT: Normocephalic, atraumatic. Pupils equal, round and reactive. Speech is fluent. EXTREMITIES: Show no clubbing, no cyanosis, and no edema. MUSCULOSKELETAL: Lower extremity strength appears equal and symmetrical 5/5, intact to light touch from L1 through S2 dermatomes. Seated straight leg raising negative. Supine straight leg raising is negative. Li's test is [address] [address] PAIN MANAGEMENT CONSULTATION Name: ALLEN CABRERA Room #: REG [facility].#: [id number] Admission: 04/14/20 Attend Phys: Prosper Ramsey DO Discharge: Date of : 69 Report #: [id number] negative. Modified Gaenslen's positive for axial low back pain. Ankle clonus negative. Babinski is negative. The patient remains tender to palpation of 18 tender points indicative of fibromyalgia. ASSESSMENT: 1. Recurrent low back pain. 2. Possible lumbar radiculopathy. 3. Lumbosacral spondylosis with radicular symptoms. 4. Chronic generalized body pain. PLAN: 1. The patient returns today in followup visit having increasing low back pain, left lower extremity pain with paresthesias. The patient indicates that this is her typical presentation of lumbar radicular symptoms for which she has received lumbar epidural injections in the past with good efficacy. She denies injury or trauma that may have led to symptom development. She returns today to begin the prior authorization process to undergo lumbar epidural injection under fluoroscopic guidance to address recurrent lumbar pain. The patient and I did discuss that third democrat payer restrictions require authorization be obtained before the patient could undergo the procedure. We will begin this process immediately. We will keep the patient apprised of our progress and gaining the authorization to address this issue. 2. The patient was provided refill prescription of buprenorphine 20 mcg patch 1 patch q. week. I have given her 4 patches releasing today, 4 weeks from today, 8 weeks from today, 3 months' worth of medication. The patient's prescriptions were provided in written form today. 3. The patient will be continued on Lyrica 225 mg dose 1 tab p.o. b.i.d. I have given the patient #180, which is a 3-month prescription of this medication. She is denying side effects of medication. We recommend she continue the therapy. 4. We will see the patient back in followup visit once we have achieved authorization for the patient to undergo a lumbar epidural injection under fluoroscopic guidance to address suspected lumbar radiculopathy. We will keep the patient apprised of her progress of achieving this authorization, we will have her return once this has been completed. <ELECTRONICALLY SIGNED> By: Prosper Ramsey DO 04/15/20 1421 [id number] [id number] Prosper Ramsey DO /nt
== END ==
LOC: PAIN 06:48
PROVIDERS: ATTEND Anesthesiology Pain Medicine
DX: M47.817 Spondylosis without myelopathy or radiculopathy, lumbosacral region (principal); G89.29 Other chronic pain; M79.605 Pain in left leg; R20.2 Paresthesia of skin; Z88.8 Allergy status to other drugs, medicaments and biological substances; Z79.899 Other long term (current) drug therapy

== ENCOUNTER → 2020-04-21 | Outpatient (CLI) | payer OTHER ==
[~2020-04-21] VITALS: Ht 165.1 cm; Wt 101.2 kg
[2020-04-21 08:12] VITALS: BP 140/82
--- NOTE | 2020-04-21 08:19 | NUR ---
Pain Clinic Assessment: 1. History of Osteoarthritis: NONE History of Rheumatoid Arthritis: NONE 2. Height: 5 ft. 5 in. 165.1 cm. Weight: 223.0 lb. oz. 101.152 kg. Patient's BMI: 37.1 3. Vital Signs: BP: 140/82 Pulse: 73 Resp: 16 Temp: 02 Sat: 97 ECG Mon: 4. Pain Intensity: 5-6 5. Fall Risk: Dizziness: N Needs help standing or walking: N Fallen in the last 3 months: N Fall risk comments: 6. Patient on Blood Thinner: None 7. History of Hypertension: Y 8. Opioid Therapy greater than 6 weeks: Y Opiate Contract Signed: 05/23/18 9. Risk Assessment Tool Provided: LOW RISK 0 10. Functional Assessment Tool: 56/ 11. Recreational Drug Use: Never Drug Type: Tobacco Use: Current Every Day Smoker Tobacco Type: Cigarettes Amount or Packs/day: 1/2 PACK How Many Years: 15 Alcohol Use: No Frequency: Quant:
--- NOTE | 2020-04-21 10:15 | HPC ---
[facility] [address] [address] PAIN MANAGEMENT CONSULTATION Name: ALLEN CABRERA Room #: REG [facility].#: [id number] Admission: 04/21/20 Attend Phys: Prosper Ramsey DO Discharge: Date of : 69 Report #: [id number] THIS REPORT FOR: cc: Benjie Palomo MD, Neal A. MD Johnson, James E. DO ~ DATE OF SERVICE: 04/21/2020 REFERRING PHYSICIAN: Benjie Palomo MD CHIEF COMPLAINT: Low back pain, left lower extremity pain with paresthesias. HISTORY OF PRESENT ILLNESS: As you know, the patient is a 54-year-old female with longstanding history of various pain generators including cervical radiculopathy and lumbar radiculopathy. She indicates increasing lumbar radicular symptoms involving low back and left lower extremity. She describes the pain as numbness, tingling, constant and sharp in sensation. She places current pain score 5-6/10. Pain is exacerbated with driving, sitting and doing certain activities, improves with warm bath, epidural injections and medication management. She returns today in followup visit requesting to undergo lumbar epidural injection under fluoroscopic guidance to address lumbar radicular pain. We have received authorization for the patient to undergo the procedure today. ALLERGIES: ACETAMINOPHEN, NAPROXEN, ADHESIVE TAPE and CEFTRIAXONE. CURRENT MEDICATIONS: Pregabalin, buprenorphine, estradiol, diclofenac gel, Lunesta, trazodone, omeprazole, guaifenesin, losartan, albuterol, multivitamin, cetirizine, duloxetine, cholecalciferol, alprazolam and amlodipine. SOCIAL HISTORY: The patient smokes half pack tobacco per day and has done so for years. Denies IV or illicit drug use. Denies any chronic alcohol use. She is working, unaccompanied today. IMAGING: No new imaging available. PHYSICAL EXAMINATION: VITAL SIGNS: Blood pressure 140/82, pulse 73, respiratory rate 16 and unlabored. The patient is 97% on room air. Height 5 feet 5 inches tall, weight 223 pounds, BMI calculated 37.1. GENERAL: Well-developed, well-nourished, well-hydrated exogenously obese 54-year-old female appearing stated age, pain is rated today 5-6/10. HEENT: Normocephalic, atraumatic. Pupils equal, round and reactive. Speech fluent. EXTREMITIES: Show no clubbing, no cyanosis, no edema. MUSCULOSKELETAL: Lower extremity strength equal and symmetrical 5/5. Muscle [address] [address] PAIN MANAGEMENT CONSULTATION Name: ALLEN CABRERA Room #: REG [facility].#: [id number] Admission: 04/21/20 Attend Phys: Prosper Ramsey DO Discharge: Date of : 69 Report #: [id number] bulk and tone equal and symmetrical in comparing left lower extremity to right. Gait is mildly antalgic favoring left lower extremity. Seated straight leg raising negative. Supine straight leg raising equivocal on the left, negative right. ASSESSMENT: 1. Lumbar radiculopathy. 2. Displacement of lumbar intervertebral disk with radiculopathy. 3. Lumbosacral spondylosis with radiculopathy. 4. Chronic low back pain. PLAN: 1. The patient returns today in followup visit having received authorization to undergo lumbar epidural injection under fluoroscopic guidance to address recurrent lumbar radicular pain. The patient denies any specific injury or trauma that may have led to symptom development. She has returned today in followup visit to undergo the procedure. She has been advised risks and benefits of this injection. These risks include but are not necessarily limited to bleeding, bruising, infection, worsening pain, no relief of pain, also risk of temporary or permanent muscle weakness, temporary or permanent nerve damage, possible paralysis and . The patient states understood and wished to proceed. 2. No medication changes made at today's visit. The patient will continue current medical therapy as previously prescribed. 3. The patient has voiced concerns about low potassium levels. She indicates that she is undergoing testing for vitamin D deficiency. We recommend that when labs are drawn for her vitamin D deficiency, the labs are also drawn to check BMP and all electrolytes will be evaluated at that time. We will await the results and discuss the findings once they are available. 4. We will see the patient back in followup visit on an as needed basis for medication management and epidural injections as requested. We are hopeful that the patient will see good and prolonged benefit with today's epidural injection. DESCRIPTION OF PROCEDURE: L5-S1 left paramedian epidural steroid injection under fluoroscopic guidance. After obtaining written consent, the patient was taken back to fluoroscopy suite, placed in prone position with pillow under abdomen to decrease lumbar lordosis. Skin overlying lumbosacral area then prepped and draped in aseptic fashion. The L5-S1 vertebral interspace identified by AP fluoroscopy. Skin and subcutaneous tissue overlying target site injection anesthetized with 3 mL of 1% lidocaine. A 20-gauge 3-1/2 inch Tuohy needle advanced under fluoroscopic guidance towards the epidural space using left paramedian approach. Epidural space identified using loss of resistance to air technique. After negative aspiration for heme [address] [address] PAIN MANAGEMENT CONSULTATION Name: ALLEN CABRERA Room #: REG [facility]#: [id number] Admission: 04/21/20 Attend Phys: Prosper Ramsey DO Discharge: Date of : 69 Report #: [id number] or cerebrospinal fluid, 1 mL of Omnipaque injected. Lumbar epidurogram confirmed using both AP and lateral fluoroscopy. After negative aspiration for heme or cerebrospinal fluid, 5 mL of solution containing 2 mL 40 mg per mL, 80 mg total triamcinolone along with 3 mL of lidocaine 1% injected slowly. Needle retracted jail, flushed with 1 mL of 1% lidocaine and then removed. Sterile bandage placed over injection site. There were no new motor deficits present in lower extremity following procedure. The patient tolerated the procedure well, carefully escorted to recovery room in stable condition. No apparent complications. After meeting discharge criteria, the patient discharged home. <ELECTRONICALLY SIGNED> By: Prosper Ramsey DO 04/21/20 1015 [id number] Prosper Ramsey DO /nt
== END | disposition home or self-care (01) ==
LOC: PAIN 06:47
PROVIDERS: ATTEND Anesthesiology Pain Medicine
DX: M51.16 Intervertebral disc disorders with radiculopathy, lumbar region (principal); M47.27 Other spondylosis with radiculopathy, lumbosacral region; G89.29 Other chronic pain; F41.1 Generalized anxiety disorder; G43.909 Migraine, unspecified, not intractable, without status migrainosus; G47.30 Sleep apnea, unspecified; K21.9 Gastro-esophageal reflux disease without esophagitis; F17.210 Nicotine dependence, cigarettes, uncomplicated; Z98.890 Other specified postprocedural states; Z79.899 Other long term (current) drug therapy; Z88.8 Allergy status to other drugs, medicaments and biological substances

== ENCOUNTER 2020-06-04 20:12 | Emergency (ER) | payer OTHER ==
[~2020-06-04] VITALS: Ht 165.1 cm; Wt 99.8 kg
[2020-06-04] MEDS ORDERED: SENNA-DOCUSATE1 EAC1 PO (21:51)
[2020-06-04] MEDS ORDERED: ROXICODONE5 MG PO (21:51)
[2020-06-04] MEDS ORDERED: MEDROLDOSEPACK PO (21:51)
[2020-06-04 22:02] VITALS: BP 104/57
[2020-06-10] MEDS ORDERED: BACLOFEN20 MG PO (14:50)
== END 2020-06-04 22:14 | disposition home or self-care (01) ==
LOC: ER 20:12
DX: M54.16 Radiculopathy, lumbar region (principal); I10 Essential (primary) hypertension; F17.210 Nicotine dependence, cigarettes, uncomplicated; Z79.899 Other long term (current) drug therapy; Z88.6 Allergy status to analgesic agent

== ENCOUNTER → 2020-06-10 | Outpatient (CLI) | payer OTHER ==
[~2020-06-10] VITALS: Ht 165.1 cm; Wt 101.2 kg
[~2020-06-10] MED LIST changes: +BACLOFEN20 MG PO; +ROXICODONE5 MG PO
--- NOTE | ~2020-06-10 | HPC ---
[facility] [address] [place] [address] PAIN MANAGEMENT CONSULTATION Name: ALLEN CABRERA Room #: REG [facility].#: [id number] Admission: 06/10/20 Attend Phys: Prosper Ramsey DO Discharge: Date of : 69 Report #: [id number] THIS REPORT FOR: cc: Benjie Palomo MD,Prosper Hawthorne MD, DO ~ CC: Prosper Palomo MD DATE OF SERVICE: 06/10/2020 REFERRING PHYSICIAN: Benjie Palomo MD CHIEF COMPLAINT: Low back pain. HISTORY OF PRESENT ILLNESS: As you know, the patient is a 54-year-old female who has returned today in followup visit stating she suffered an acute injury to the low back approximately a week and a half ago. She states she was getting in a car to go to a court appointment in [place], [place] when she felt instantaneous back pain. She states that she went to lay down after this, but did not see any improvement. She states that she had to attend the court-mandated appointment in excruciating pain. She returned to see Emergency Department with concerns of 3-day low back pain. This was on 06/04/2020. She indicated to them that she was feeling left low back, left hip and left lower extremity symptoms. She described it as a "pinched nerve." She was seen on that visit, advised from a physiologic standpoint she was normal except for some potential mild sensory loss in the left lower extremity. There were no signs of cord compression, cauda equina or neurologic abnormalities. She was given a Medrol Dosepak and apparently oxycodone for pain control. She has completed the Medrol Dosepak, but has not noted much in the way of improvement. She has been taking oxycodone despite the fact that she is on a Butrans patch, which essentially negates the oxycodone therapy due to the tight binding of buprenorphine on the Mu receptor. She has returned to our clinic to discuss treatment options for this ongoing back pain. She reports she does have an MRI planned for 06/19/2020 for further evaluation of the lumbar region. ALLERGIES: ACETAMINOPHEN, NAPROXEN, ADHESIVE TAPE AND CEFTRIAXONE. CURRENT MEDICATIONS: Pregabalin, buprenorphine, estradiol, diclofenac gel, Lunesta, trazodone, omeprazole, guaifenesin, losartan, albuterol, multivitamin, sertraline, duloxetine, cholecalciferol, alprazolam, amlodipine, and oxycodone. SOCIAL HISTORY: The patient smokes and continues to smoke half pack tobacco per day and has done so for multiple years. Denies IV or illicit drug use. Denies any chronic alcohol use. She is working, un[place] [address] PAIN MANAGEMENT CONSULTATION Name: ALLEN CABRERA Room #: REG GUILHERME Lopez#: [id number] Admission: 06/10/20 Attend Phys: Prosper Ramsey DO Discharge: Date of : 69 Report #: [id number] IMAGING: No new imaging available. PHYSICAL EXAMINATION: VITAL SIGNS: Blood pressure 142/99, pulse is 76, respiratory rate 16 and unlabored. The patient is 100% on room air. Height 5 feet 5 inches tall, weight 223 pounds, BMI calculated at 37.1. GENERAL: Well-developed, well-nourished, well-hydrated exogenously obese 54-year-old female, appears stated age, no acute distress. Pain is rated at 7-8/10. HEENT: Normocephalic, atraumatic. Pupils equal, round and reactive. Speech is fluent. EXTREMITIES: Show no clubbing, no noted cyanosis, no edema. MUSCULOSKELETAL: The patient appears to have some tenderness to palpation over the lower lumbar spine, appears to be related more to myofascial symptoms. Seated straight leg raising is negative. Supine straight leg raising is equivocal on the left, negative right. She has normal deep tendon reflexes at patella and Achilles. Strength is 5/5. Muscle bulk and tone equal and symmetrical, but deconditioned. Reported mild sensory loss on the L5-S1 dermatome versus the right. No atrophy noted of the lower extremities. Gait mildly antalgic favoring left lower extremity. ASSESSMENT: 1. Acute onset low back pain without noted injury. 2. Chronic lumbar radiculopathy. 3. Mild displacement of lumbar intervertebral disk with radiculopathy. 4. Lumbosacral spondylosis with radiculopathy. 5. Chronic back pain. 6. Opioid dependency. PLAN: 1. The patient returns today in followup visit indicating acute increase in low back pain, left lower extremity pain while getting out of a car. She denies any specific injury or trauma other than this incident that may have led to pain development. She states that she has been in pain for an extended period of time since that point and symptoms had not resolved. She sought evaluation through the Emergency Department who provided the patient with a Medrol Dosepak for which the patient has completed the therapy without significant benefit. She was also given opioids for pain control, despite the fact the patient is on buprenorphine and will note no improvement in symptoms with the medication, as it cannot affect the MU receptor given the buprenorphine that she is currently on. She returns to our clinic to discuss treatment options for lack of pain improvement. 2. It would appear the patient has suffered an acute onset of exacerbation of her chronic pain. I am unable to elicit any significant neuropathic component other than the subjective sensory loss in the left lower extremity. There are [facility] [address] [place] [address] PAIN MANAGEMENT CONSULTATION Name: ALLEN CABRERA Room #: REG [facility]#: [id number] Admission: 06/10/20 Attend Phys: Prosper Ramsey DO Discharge: Date of : 69 Report #: [id number] no changes in muscle tone. There is no focal neurologic deficit. This could be just a lumbar strain. The patient does have imaging planned and we would recommend that we delay treatment until which time we can determine any change in pathology in the lumbar spine and whether or not options of treatment need to be adjusted. 3. We recommend that the patient contact the MRI team and determine if she can be seen more rapidly than the 06/19/2019. It does appear that the MRI has been approved by her third libertarian payer if we could get this imaging done more rapidly. We can review those findings and determine if interventional treatments or even surgical options may be necessary. We are hopeful that the MRI will show a strain type pattern and that the patient will improve with tincture of time. We will be able to review those findings once they are available. She will contact the MRI team today to determine if she can shorten the timeframe of waiting for the MRI. 4. We recommend the patient utilize baclofen 20 mg dose for her muscle spasming. She is to watch for side effects with medications including somnolence, decreased mental acuity, disorientation, confusion. She is not to drive or operate heavy equipment while on the medication. Medication was provided to her local pharmacy, #60 tablets, no refills. 5. We will see the patient back in followup visit once her MRI is completed. We will review those findings and determine if interventional treatments are going to be necessary. We are hopeful the patient will show only her typical findings and a strain pattern that may be from this recent incident. We will keep you apprised of the findings of that MRI and suggest treatment options. By: [id number] Prosper Ramsey DO /nt
[2020-06-10 14:02] VITALS: BP 142/99
--- NOTE | 2020-06-10 14:22 | NUR ---
Pain Clinic Assessment: 1. History of Osteoarthritis: NONE History of Rheumatoid Arthritis: NONE 2. Height: 5 ft. 5 in. 165.1 cm. Weight: 223.0 lb. oz. 101.152 kg. Patient's BMI: 37.1 3. Vital Signs: BP: 142/99 Pulse: 76 Resp: 16 Temp: 02 Sat: 100 ECG Mon: 4. Pain Intensity: 7-8 5. Fall Risk: Dizziness: N Needs help standing or walking: N Fallen in the last 3 months: N Fall risk comments: 6. Patient on Blood Thinner: None 7. History of Hypertension: Y 8. Opioid Therapy greater than 6 weeks: Y Opiate Contract Signed: 05/23/18 9. Risk Assessment Tool Provided: LOW RISK 0 10. Functional Assessment Tool: 66/70 11. Recreational Drug Use: Never Drug Type: Tobacco Use: Current Every Day Smoker Tobacco Type: Cigarettes Amount or Packs/day: How Many Years: Alcohol Use: No Frequency: Quant:
== END ==
LOC: PAIN 06:54
PROVIDERS: ATTEND Anesthesiology Pain Medicine
DX: M51.16 Intervertebral disc disorders with radiculopathy, lumbar region (principal); M47.27 Other spondylosis with radiculopathy, lumbosacral region; G89.29 Other chronic pain; F11.20 Opioid dependence, uncomplicated; Z88.8 Allergy status to other drugs, medicaments and biological substances; Z79.899 Other long term (current) drug therapy

== ENCOUNTER → 2020-06-11 | Outpatient (CLI) | payer OTHER | LOC: LAB 09:12 | PROVIDERS: ATTEND Nurse Practitioner | DX: Z20.828 Contact with and (suspected) exposure to other viral communicable diseases (principal) ==

== ENCOUNTER 2020-06-17 11:10 | Emergency (ER) | payer OTHER ==
[~2020-06-17] VITALS: Ht 165.1 cm; Wt 99.8 kg
[2020-06-17] MEDS ORDERED: BACTRIM DS TAB1 EACH PO (11:20)
[2020-06-17] MEDS ORDERED: PHENERGAN 25 MG25 M1 PO (14:27)
[2020-06-17 15:24] VITALS: BP 121/71
== END 2020-06-17 15:24 | disposition home or self-care (01) ==
LOC: ER 11:10
DX: G44.209 Tension-type headache, unspecified, not intractable (principal); M54.5 Low back pain; G89.29 Other chronic pain; I10 Essential (primary) hypertension; K21.9 Gastro-esophageal reflux disease without esophagitis; G47.30 Sleep apnea, unspecified; F17.210 Nicotine dependence, cigarettes, uncomplicated; Z88.6 Allergy status to analgesic agent; Z88.8 Allergy status to other drugs, medicaments and biological substances; Z90.710 Acquired absence of both cervix and uterus

== ENCOUNTER 2020-06-19 12:35 | Emergency (ER) | payer OTHER ==
[~2020-06-19] VITALS: Ht 165.1 cm; Wt 99.8 kg
[~2020-06-19 12:35] MED LIST changes: -LIDODERM1 EACH TOP; -OXYCODONE HCL 55 MG PO; -PERCOCET 5-3251 EACH PO; -PREDNISONE 5 MG5 M1 PO
[2020-06-19] MEDS ORDERED: PERCOCET 5-3251 EACH PO (16:49)
[2020-06-19 17:29] VITALS: BP 174/95
== END 2020-06-19 17:29 | disposition home or self-care (01) ==
LOC: ER 12:35
DX: G96.191 Perineural cyst (principal); M54.5 Low back pain; I10 Essential (primary) hypertension; K21.9 Gastro-esophageal reflux disease without esophagitis; F17.210 Nicotine dependence, cigarettes, uncomplicated; Z88.6 Allergy status to analgesic agent; Z88.1 Allergy status to other antibiotic agents; Z88.8 Allergy status to other drugs, medicaments and biological substances; Z79.899 Other long term (current) drug therapy; Z90.710 Acquired absence of both cervix and uterus; Z98.890 Other specified postprocedural states

== ENCOUNTER → 2020-06-19 | Outpatient (CLI) | payer OTHER ==
[~2020-06-19] MED LIST changes: +LIDODERM1 EACH TOP; +OXYCODONE HCL 55 MG PO; +PERCOCET 5-3251 EACH PO; +PREDNISONE 5 MG5 M1 PO
== END ==
LOC: MRI 06-16 10:18
PROVIDERS: ATTEND Family Medicine
DX: M47.25 Other spondylosis with radiculopathy, thoracolumbar region (principal); M47.26 Other spondylosis with radiculopathy, lumbar region; M51.16 Intervertebral disc disorders with radiculopathy, lumbar region; M48.061 Spinal stenosis, lumbar region without neurogenic claudication; M53.88 Other specified dorsopathies, sacral and sacrococcygeal region

== ENCOUNTER 2020-06-20 17:21 | Inpatient (IN) | payer OTHER ==
[~2020-06-20] VITALS: Ht 167.6 cm; Wt 99.8 kg
[2020-06-20 17:21] VITALS: BP 138/88
[~2020-06-20 17:21] MED LIST changes: +PERCOCET 5-3251 EACH PO
[2020-06-20 17:57] LABS: HEMATOCRIT 40.9 % (37.0-47.0); HEMOGLOBIN 13.6 gm/dL (12.0-15.0); MCH 32.1 pg (26.0-34.0); MCHC 33.2 g/dL (28.0-37.0); MCV 96.7 fL (80.0-100.0); RBC 4.23 mil/uL (4.20-5.00); RDW 15.7 % (10.5-14.5); WBC 11.3 thou/uL (4.0-11.0)
[2020-06-20 17:58] LABS: CALCIUM 8.8 mg/dL (8.5-10.1); CREATININE 0.8 mg/dL (0.6-1.0); POTASSIUM 3.5 mmol/L (3.5-5.1)
[2020-06-20 18:04] LABS: ALBUMIN 3.4 g/dL (3.4-5.0); TOTAL BILIRUBIN 0.3 mg/dL (0.2-1.0); TOTAL PROTEIN 7.5 g/dL (6.4-8.2)
[2020-06-20 18:10] VITALS: BP 130/64
--- NOTE | 2020-06-20 18:46 | NUR ---
ATTEMPTED TO CALL REPORT, WAS ADVISED NURSE COULD NOT TAKE REPORT: IS "IN HUDDLE"RIGHT NOW
[2020-06-20 18:53] VITALS: BP 139/78
[2020-06-20 19:51] VITALS: BP 120/83
--- NOTE | 2020-06-20 20:00 | NUR ---
Pt. admitted to the unit from the emergency room accompanied by staff. She is alert and oriented. Pt. oriented to her room and staff. Vss.
--- NOTE | 2020-06-20 21:00 | NUR ---
Pt. wanting some pain medication for her back pain. She shows me a buprenorphine medicated patch on her left arm. Pt. wanting to know if it should be taken off. Call placed to Dr. Palomo to review home med list.
--- NOTE | 2020-06-20 21:45 | NUR ---
Dr. Palomo returned my call and informed of the buprenorphine medicated patch. He wants the patch removed and ok to give morphine as ordered. Patch was removed and wasted. Mary RN witness this nurse wasting the patch. Morphine given as ordered. Home meds reviewed with Dr. Palomo and new orders received (see cpoe). Admission assessment and history is completed.
--- NOTE | 2020-06-21 04:38 | NUR ---
Pt. currently resting quietly in the bed. Prn morphine given for back pain (see emar). Prn xanax also given for anxiety (see emar). Pt. reports some nausea and prn zofran given (see emar) with relief.
[2020-06-21 07:22] VITALS: BP 148/73
[2020-06-21 15:15] VITALS: BP 146/70
--- NOTE | 2020-06-21 18:29 | NUR ---
PT A&OX, VSS, PAIN. PAIN MEDICATION GIVEN. PATIENT TOLERATING DIET. PATIENT AWAITING CONSULT WITH SURGEON ROSIE. NO SIGNS OF DISTRESS. WILL CONTINUE TO MONITOR.
[2020-06-21 19:30] VITALS: BP 132/99
--- NOTE | 2020-06-22 05:05 | NUR ---
ASSUMED CARE OF PT AT 1900HRS. PT AOX4 AAND LETS NEEDS BE KNOWN. PT IS UP AD [facility]. ASSESSMENT CHARTED. PT REPORTED PAIN AND PRN PAIN MEDS WERE GIVEN. PT HAD AN FSBG OF 189. PT MAY REQUIRE INSULIN RELATED TO STEROID USE. PT WAS ABLE TO GET COMFORTABLE AND SLEEP PART OF THE SHIFT. VSS ANF NO S/S OF ACUTE DISTRESS. WILL CONTINUE TO MONITOR.
--- NOTE | 2020-06-22 07:46 | NUR ---
patient refusing all breathing treatments, please change them to prn
[2020-06-22 08:30] VITALS: BP 122/68
--- NOTE | 2020-06-22 14:13 | NUR ---
PT ADMITTED RELATED TO BACK PAIN, MIGRAINE, N/V. CM REVIEWED CHART AND SPOKE WITH CARE TEAM. CM CALLED AND SPOKE WITH PT AT BEDSIDE THIS DAY. PT APPEARED TO BE A&O X4. CM ROLE INTRODUCED. PT INDICATED SHE LIVES IN A HOUSE WITH HER SISTER, KISHA, AND NEPHEW. SHE INDICATED 7 STEPS TO ENTER AND 9 STEPS TO MAIN LIVING AREA. PT INDICATED SHE HAD BEEN INDEPENDENT WITH GAIT AND ADLS UP UNTIL ABOUT 2 WEEKS PRIOR TO ADMIT. 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 SHE INDICATED SHE HAD DONE OP HERE AT [facility] IN PAST. PT HAS A CPAP SHE BOUGHT THROUGH [employer] THAT SHE INDICATED SHE HAS ISSUES GETTING FILTERS FOR. PT INDICATED SHE PLANS TO RETURN BACK TO THE HOUSE WITH HER FAMILY ONCE MEDICALLY STABLE. DR. TIMMONS WAS COSULTED PT DIDN'T WANT ROSIE SEEING HER. CM TO FOLLOW INDICATED WITH DC PLANNING.
--- NOTE | 2020-06-22 15:01 | NUR ---
Received awake on bed. Due medications given as prescribed, able to swallow meds w/o difficulty. On room air, supposed to use CPAP at night- as per Night RN, pt refusing to bring or use CPAP and wants to use Oxygen at night instead- RT aware, physician aware. On MS, not on telemetry; no complain and signs of chest pain, crushing sensation and heaviness. On heart healthy diet- tolerating well; no nausea, no vomiting and no abdominal pain noted. Continent of bowel and bladder, up ad chauncey and able to go to the toilet independently, informed pt to inform staff member for assistance. With NS at 80cc/hr, infusing well at L FA. Complained of pain, due PRN pain meds given as prescribed. Pt requested to have Dr Palomo informed re: Vit D level test and if to continue supplements, if she will be on blood sugar monitoring and insulin- physician informed during his rounds. With consult to Dr Napoles- as per pt she does not want to be seen by Dr Napoles, Dr Palomo informed and he said to change consult to Dr Harman- Dr Harman is not with [facility] anymore- Dr Palomo informed, relayed and talked to the patient, she said to proceed with Dr Napoles consult for evaluation but no surgical intervention for now- physician informed re: pt's request and agreed to have Dr Napoles consult. RT requested to talk to physician to change breathing treatment order to PRN since she has been refusing since yesterday, Dr Palomo informed and agreed to switch to PRN-orders obtained. To continue monitoring patient.
[2020-06-22 15:10] VITALS: BP 133/73
[2020-06-22 20:18] VITALS: BP 135/77
--- NOTE | 2020-06-23 03:49 | NUR ---
ASSUMED CARE OF PT AT 1900HRS. PT AOX4 AND LETS NEEDS BE KNOWN. PT IS UP AD [facility]. PT REPORTS LOWER BACK PAIN AND WAS TREATED WITH PRN MEDS. PT REPORT THAT LIDOCANE PATCH IS HELPFUL. PT DENIES NAUSEA OR SOA. PT USED CPAP AT HS. PT WAS ABLE TO GET COMFORTABLE AND SLEEP PART OF THE SHIFT. VSS AND NO S/S OF ACUTE DISTRESS. WILL CONTINUE TO MONITOR.
[2020-06-23] MEDS ORDERED: OXYCODONE HCL 55 MG PO (07:31)
[2020-06-23] MEDS ORDERED: LIDODERM1 EACH TOP (07:32)
[2020-06-23] MEDS ORDERED: PREDNISONE 5 MG5 M1 PO (07:34)
[2020-06-23 09:00] VITALS: BP 135/77
--- NOTE | 2020-06-23 09:18 | NUR ---
Received awake on bed. Due medication given as prescribed, able to swallow meds w/o difficulty. Vital signs stable. On MS, not on telemetry; no complains and signs of chest pain, crushing sensation and heaviness. On room air during daytime, using CPAP at night. On heart healthy diet- tolerating well; no nausea, no vomiting and no abdominal pain noted. Assisted in ADLs. With NS at 80cc/hr, infusing well at L FA. Up ad chauncey, independent with ADLs. Pt seen and examined by Dr Palomo, discharge orders made; to set up appointment at pain clinic. Discharge instructions, follow up schedule given and instructed.
[2020-06-23 10:07] VITALS: BP 142/81
== END 2020-06-23 11:11 | disposition home or self-care (01) | DRG 552 ==
LOC: ER 17:21 → 4W 19:29 → ER 19:29 → 4W 19:33
PROVIDERS: Emergency Medicine; ADMIT Family Medicine; ATTEND Family Medicine
DX: M47.816 Spondylosis without myelopathy or radiculopathy, lumbar region (principal); Z90.710 Acquired absence of both cervix and uterus; I10 Essential (primary) hypertension; F32.9 Major depressive disorder, single episode, unspecified; F41.9 Anxiety disorder, unspecified; G89.4 Chronic pain syndrome; F17.210 Nicotine dependence, cigarettes, uncomplicated; K59.00 Constipation, unspecified; G96.191 Perineural cyst; Z88.8 Allergy status to other drugs, medicaments and biological substances
CPT/HCPCS: 10040

== ENCOUNTER → 2020-06-30 | Outpatient (CLI) | payer OTHER ==
[~2020-06-30] VITALS: Ht 167.6 cm; Wt 97.5 kg
[~2020-06-30] MED LIST changes: +DICLOFENAC SODI75 MG PO; +LIDODERM1 EACH TOP; +OXYCODONE HCL 55 MG PO; +PREDNISONE 5 MG5 M1 PO
--- NOTE | 2020-06-30 09:41 | NUR ---
Pain Clinic Assessment: 1. History of Osteoarthritis: NONE History of Rheumatoid Arthritis: NONE 2. Height: ft. in. cm. Weight: lb. oz. kg. Patient's BMI: 3. Vital Signs: BP: Pulse: Resp: Temp: 02 Sat: ECG Mon: 4. Pain Intensity: 6-7 5. Fall Risk: Dizziness: Needs help standing or walking: Fallen in the last 3 months: Fall risk comments: 6. Patient on Blood Thinner: None 7. History of Hypertension: Y 8. Opioid Therapy greater than 6 weeks: Y Opiate Contract Signed: 05/23/18 9. Risk Assessment Tool Provided: mod risk - 4 10. Functional Assessment Tool: 66/70 11. Recreational Drug Use: Never Drug Type: Tobacco Use: Current Every Day Smoker Tobacco Type: Amount or Packs/day: How Many Years: Alcohol Use: No Frequency: Quant:
[2020-06-30 09:52] VITALS: BP 128/89
--- NOTE | 2020-06-30 09:55 | NUR ---
Pain Clinic Assessment: 1. History of Osteoarthritis: NONE History of Rheumatoid Arthritis: NONE 2. Height: 5 ft. 6 in. 167.6 cm. Weight: 215.0 lb. oz. 97.524 kg. Patient's BMI: 34.7 3. Vital Signs: BP: 128/89 Pulse: 81 Resp: 18 Temp: 02 Sat: 98 ECG Mon: 4. Pain Intensity: 6-7 5. Fall Risk: Dizziness: N Needs help standing or walking: N Fallen in the last 3 months: N Fall risk comments: 6. Patient on Blood Thinner: None 7. History of Hypertension: Y 8. Opioid Therapy greater than 6 weeks: Y Opiate Contract Signed: 05/23/18 9. Risk Assessment Tool Provided: mod risk - 4 10. Functional Assessment Tool: 66/70 11. Recreational Drug Use: Never Drug Type: Tobacco Use: Current Every Day Smoker Tobacco Type: Amount or Packs/day: How Many Years: Alcohol Use: No Frequency: Quant:
--- NOTE | 2020-07-01 11:11 | HPC ---
[facility] [place] [address] PAIN MANAGEMENT CONSULTATION Name: ALLEN CABRERA [id number] Admission: 06/30/20 Attend Phys: Prosper Ramsey DO Discharge: Date of : 69 Report #: [id number] CC: Prosper Palomo MD DATE OF SERVICE: 06/30/2020 CHIEF COMPLAINT: Right low back pain. HISTORY OF PRESENT ILLNESS: As you know, the patient is a very unfortunate 54-year-old female who returns today in followup visit having been seen in the Emergency Department for right low back pain. She received injections of morphine and steroid with improvement in symptoms, but unfortunately, her symptoms recurred. She has undergone new imaging, which shows facet changes at L4-L5 and L5-S1 consistent with the patient's right low back pain. There is no radicular component to the patient's symptoms. She is able to localize the pain directly over the lower lumbar spine consistent with facet arthropathy. The findings of the MRI do confirm [id number] facet changes, and please advise the patient there is no significant lateralizing feature that would be consistent with her pain. She returns to discuss treatment options. She is placing her current pain score around 6-7/10. ALLERGIES: ACETAMINOPHEN, NAPROXEN, ADHESIVE TAPE AND CEFTRIAXONE. CURRENT MEDICATIONS: Pregabalin, estradiol, diclofenac gel, Lunesta, trazodone, omeprazole, guaifenesin, losartan, albuterol, multivitamin, sertraline, duloxetine, cholecalciferol, alprazolam, amlodipine, and oxycodone. SOCIAL HISTORY: The patient continues to smoke half pack tobacco per day and has done so for multiple years. Denies IV or illicit drug use. Denies any chronic alcohol use. She has not been working of late. IMAGING: MRI of lumbar spine obtained on 06/19/2020 shows mild diffuse lumbar spondylosis, most significant disease at L3-L4 and L4-L5. PHYSICAL EXAMINATION: GENERAL: A well-developed, well-nourished, well-hydrated exogenously obese 54-year-old female appearing stated age, pain is rated around 6 6-7/10. HEENT: Normocephalic and atraumatic. Pupils are equal, round and reactive. Speech is fluent. EXTREMITIES: Show no clubbing, no cyanosis, no edema. MUSCULOSKELETAL: The patient has some palpatory tenderness over the facet joints on the right more than left. Lumbar provocation testing including extension, rotation, lateral flexion all intensify axial back pain. Seated straight leg raising negative. Supine straight leg raising negative. Li's test is negative. Modified Gaenslen's positive for axial low back pain. ASSESSMENT: 1. Lumbosacral spondylosis without radiculopathy. 2. Facet arthropathy of the lumbar spine. 3. Exogenous obesity. 4. Chronic intractable pain. PLAN: 1. The patient returns today in followup visit, able to localize pain over the lower lumbar spine facet joints. It would appear the patient is suffering from facet arthritic pain due to the findings of the L3-L4 and L4-L5 level. We have discussed with the patient that the treatment options for facet arthropathy pain are limited to about 4 different ways to treat. The following was discussed with the patient today on treatment options. We discussed physical therapy, stretching exercise, core strengthening and a concerted effort at weight loss, which will be necessary if the patient wishes to remain ahead of this from an analgesic standpoint. We discussed the addition of a consistent nonsteroidal anti-inflammatory to her current medication list, though we recommend strongly low-dose opioid medications at the highest and this should only be used at times when her pain is intolerable, not to relied on consistently. We discussed intra-articular facet injections, medial branch nerve blocks and radiofrequency lesioning as the more definitive treatment course and ultimately surgical fusion. After reviewing risks and benefits of all proposed treatment options, she chose to move forward with authorization to undergo intra-articular facet injections at L3-L4 and L4-L5 bilaterally. 2. The patient was advised that due to third republican restrictions, authorization would have to be obtained before the patient could undergo the facet injections. We will begin this authorization immediately and contact the patient once it has been completed. We will have her return once we have that authorization. Authorization could take anywhere from 4-7 working days. We will keep her apprised of our progress. 3. The patient will be started on diclofenac sodium 75 mg dose 1 tab p.o. b.i.d. I have given the patient #60 tablets, 2 refills. She is to watch for dyspepsia, worsening of blood pressure, lower extremity edema with use of the medication. She is to discontinue all other nonsteroidal anti-inflammatories in favor of this medication. 4. The patient has requested a refill of her oxycodone 5 mg dose. She received 30 tablets upon ER visit and has requested we provide her another 2-3 weeks of this medication as she awaits the injections. We do not recommend long-term opioid medications for facet arthropathy pain, but did offer the patient a short dosing of the medication today. We have sent that to the local pharmacy. I advised the patient that this is not going to be a long time treatment and we would not be providing these for facet arthropathy pain in the future. 5. We will see the patient back in followup visit once we have achieved authorization for the patient to undergo facet injections in the lumbar spine. We will keep you apprised of response to this treatment and whether or not we have to progress with radiofrequency lesioning. 6. The patient has discontinued her buprenorphine as she has indicated she wants off pain medications. We applaud the patient for her desire to come off these medications and will be compliant with her request that we did advise the patient that continuation of immediate release formulation of opioid medications will not be taking the place of the long-acting buprenorphine. If pain continues, she will be returning to the buprenorphine treatment. <ELECTRONICALLY SIGNED> By: Prosper Ramsey, 07/01/20 [id number] Prosper Ramsey DO /roshni
== END ==
LOC: PAIN 06:51
PROVIDERS: ATTEND Anesthesiology Pain Medicine
DX: M47.27 Other spondylosis with radiculopathy, lumbosacral region (principal); E66.9 Obesity, unspecified; G89.29 Other chronic pain; Z88.8 Allergy status to other drugs, medicaments and biological substances; Z79.899 Other long term (current) drug therapy

== ENCOUNTER → 2020-07-14 | Outpatient (CLI) | payer OTHER ==
[~2020-07-14] VITALS: Ht 165.1 cm; Wt 97.1 kg
[~2020-07-14] MED LIST changes: +COZAAR100 MG PO; +ZOFRAN4 MG PO
--- NOTE | ~2020-07-14 | HPC ---
[facility] [place] [address] PAIN MANAGEMENT CONSULTATION Name: ALLEN CABRERA Room #: REG [facility]..#: [id number] Admission: 07/14/20 Attend Phys: Prosper Ramsey DO Discharge: Date of : 69 Report #: [id number] CC: Prosper Palomo MD DATE OF SERVICE: 07/14/2020 REFERRING PHYSICIAN: Benjie Palomo MD CHIEF COMPLAINT: Axial back pain. HISTORY OF PRESENT ILLNESS: As you know, the patient is a very unfortunate 54-year-old female who suffers from various pain generators likely due to fibromyalgia. She returns today in followup visit to undergo intra-articular facet injections to address facet arthropathy pain. As you are aware, based on her recent MRI dated 06/19/2020, she has mild changes throughout the lumbar region from a disk bulging standpoint without neural foraminal compromise or central canal compromise. She does have severe facet arthropathy at L4-L5 level consistent with her age and body habitus. She returns today in followup visit to address facet arthropathy pain. She is denying any injury or trauma of late. She is placing pain at a 7-8/10. ALLERGIES: ACETAMINOPHEN, NAPROXEN, ADHESIVE TAPE AND CEFTRIAXONE. CURRENT MEDICATIONS: See chart. SOCIAL HISTORY: The patient continues to smoke half-pack tobacco per day despite our discussions to discontinue the activity as it does exacerbate generalized pain. She denies IV or illicit drug use. Denies any chronic alcohol use. She has been out of the work force for some time due to ongoing pain. IMAGING: Per the findings at 06/19/2020, mild diffuse lumbar spondylosis with severe facet arthropathy noted at the L4-L5 level. PHYSICAL EXAMINATION: VITAL SIGNS: Blood pressure 155/104, pulse 98, respiratory rate 16 and unlabored. The patient is 100% on room air. Height 5 feet 5 inches tall, weight 214 pounds, BMI calculated 35.6. GENERAL: Well-developed, well-nourished, well-hydrated exogenously obese 54-year-old female appearing stated age, pain is rated around 7-8/10. HEENT: Normocephalic, atraumatic. Pupils equal, round and reactive. EXTREMITIES: Show no clubbing, no cyanosis, no edema. MUSCULOSKELETAL: Palpatory tenderness is noted over the paraspinal musculature of lower lumbar spine, more on the right than the left. Lumbar provocation testing is once again met with increasing pain in all planes of movement. Seated straight leg raising negative. Supine straight leg raising remains negative. ASSESSMENT: 1. Lumbosacral spondylosis without radiculopathy. 2. Facet arthropathy of the lumbar spine. 3. Exogenous obesity. 4. Generalized pain disorder due to fibromyalgia. 5. Chronic intractable pain. PLAN: 1. The patient returns today in followup visit with authorization to undergo intra-articular facet joint injections at L4-L5 and L5-S1 to address the lower facet joints. Based on MRI dated 06/19/2020, the only finding potentially consistent with her distribution of symptoms is the facet joints. I am pleased to advise the patient there are no findings concerning of any nerve root impingement and thus no radicular symptoms are present or attributable to any findings in the lumbar region. She returns today in followup visit for intraarticular facet injections under fluoroscopic guidance. She has been advised risks and benefits of the procedure, states understood and wished to proceed. 2. No medication changes made at today's visit. The patient will continue current medical therapy as prior prescribed. 3. We plan to see the patient back in followup visit on an as needed basis for possible next in the series of intraarticular facet injections. If the facet injections are beneficial, but loses affect quickly, we would then discuss medial branch blocks and radiofrequency lesioning as treatment options. The patient is agreeable. PROCEDURE NOTE DESCRIPTION OF PROCEDURE: Bilateral L4-L5, L5-S1 intraarticular facet injections under fluoroscopic guidance. This is the first procedure of the first series that the patient is undergoing. After obtaining written consent, the patient was taken back to the fluoroscopy suite and placed in a prone position with a pillow under the abdomen to decrease the lumbar lordosis and to facilitate needle entry into the facet joints. The skin overlying the lumbosacral area was prepped and draped in an aseptic fashion. AP and lateral fluoroscopic imaging was obtained. Optimal position of the fluoroscope occurred when the joint line was first visualized. The facet joints were identified radiographically directed adjacent to the superior articular process of the caudad vertebrae. The skin overlying the target site(s) of injection was anesthetized using 3 mL of 1% lidocaine. A 22-guage, 3.5 inch spinal needle with a bent tip was advanced towards the L4-L5, L5-S1 facet joints on the right and left side under fluoroscopic guidance. The firm posterior capsule had its characteristic feel and the needle was advanced a few additional millimeters beyond the joint capsule into the joint space, but not into the articular cartilage. After the joint space was entered and aspiration was negative for heme or CSF, 0.2 mL of Omnipaque was injected demonstrating a characteristic facet arthrogram. After negative aspiration for heme or CSF, 1.5 mL of a solution containing 1 mL 40 mg per mL, 40 mg total triamcinolone along with 3 mL of bupivacaine 0.5% was slowly injected at each of the 4 facet(s). The needle(s) was then removed. There were no apparent complications. The patient tolerated the procedure well and was carefully escorted to the recovery room in stable condition. The VAS was 7-8/10 before the procedure and 0/10 ten minutes after the procedure. After meeting discharge criteria, the patient was discharged home. By: [id number] Prosper Ramsey DO /nt
[2020-07-14 13:16] VITALS: BP 155/104
--- NOTE | 2020-07-14 13:21 | NUR ---
Pain Clinic Assessment: 1. History of Osteoarthritis: NONE History of Rheumatoid Arthritis: NONE 2. Height: 5 ft. 5 in. 165.1 cm. Weight: 214.0 lb. oz. 97.070 kg. Patient's BMI: 35.6 3. Vital Signs: BP: 155/104 Pulse: 98 Resp: 16 Temp: 02 Sat: 100 ECG Mon: 4. Pain Intensity: 7-8 5. Fall Risk: Dizziness: N Needs help standing or walking: N Fallen in the last 3 months: N Fall risk comments: 6. Patient on Blood Thinner: None 7. History of Hypertension: Y 8. Opioid Therapy greater than 6 weeks: Y Opiate Contract Signed: 05/23/18 9. Risk Assessment Tool Provided: mod risk - 4 10. Functional Assessment Tool: /70 11. Recreational Drug Use: Never Drug Type: Tobacco Use: Current Every Day Smoker Tobacco Type: Cigarettes Amount or Packs/day: 1 PER DAY How Many Years: Alcohol Use: No Frequency: Quant:
== END | disposition home or self-care (01) ==
LOC: PAIN 06:43
PROVIDERS: ATTEND Anesthesiology Pain Medicine
DX: M47.817 Spondylosis without myelopathy or radiculopathy, lumbosacral region (principal); M47.816 Spondylosis without myelopathy or radiculopathy, lumbar region; G89.29 Other chronic pain; G43.909 Migraine, unspecified, not intractable, without status migrainosus; G47.30 Sleep apnea, unspecified; K21.9 Gastro-esophageal reflux disease without esophagitis; F17.210 Nicotine dependence, cigarettes, uncomplicated; E66.09 Other obesity due to excess calories; Z98.890 Other specified postprocedural states; Z79.899 Other long term (current) drug therapy; Z68.35 Body mass index [BMI] 35.0-35.9, adult; Z88.8 Allergy status to other drugs, medicaments and biological substances

== ENCOUNTER → 2020-07-22 | Outpatient (CLI) | payer OTHER ==
[2020-07-22 16:00] LABS: HEMATOCRIT 46.5 % (37.0-47.0); HEMOGLOBIN 15.6 gm/dL (12.0-15.0); MCH 32.8 pg (26.0-34.0); MCHC 33.5 g/dL (28.0-37.0); MCV 97.8 fL (80.0-100.0); PLATELET COUNT 419 thou/uL (150-400); RBC 4.75 mil/uL (4.20-5.00); RDW 15.4 % (10.5-14.5); WBC 20.7 thou/uL (4.0-11.0)
[2020-07-22 16:47] LABS: ABSOLUTE NEUTROPHILS 14.7 thou/uL (1.4-8.2); PLATELET ESTIMATE NORMAL
[2020-07-23 03:06] LABS: GLYCOHEMOGLOBIN (HGB A1C) 5.9 % (4.8-5.6)
== END ==
LOC: LAB 15:11
PROVIDERS: ATTEND Nurse Practitioner
DX: K62.5 Hemorrhage of anus and rectum (principal); R73.9 Hyperglycemia, unspecified

== ENCOUNTER → 2020-08-03 | Outpatient (CLI) | payer OTHER ==
[2020-08-03 12:12] LABS: HEMATOCRIT 41.9 % (37.0-47.0); HEMOGLOBIN 14.1 gm/dL (12.0-15.0); MCH 32.7 pg (26.0-34.0); MCHC 33.6 g/dL (28.0-37.0); MCV 97.6 fL (80.0-100.0); PLATELET COUNT 313 thou/uL (150-400); RDW 15.3 % (10.5-14.5); WBC 20.7 thou/uL (4.0-11.0)
[2020-08-03 13:07] LABS: ABSOLUTE NEUTROPHILS 16.6 thou/uL (1.4-8.2); ALBUMIN 3.7 g/dL (3.4-5.0); CALCIUM 8.9 mg/dL (8.5-10.1); CREATININE 0.8 mg/dL (0.6-1.0); POTASSIUM 3.4 mmol/L (3.5-5.1); TOTAL BILIRUBIN 0.4 mg/dL (0.2-1.0); TOTAL PROTEIN 7.4 g/dL (6.4-8.2)
== END ==
LOC: LAB 11:25
PROVIDERS: ATTEND Family Medicine
DX: G47.00 Insomnia, unspecified (principal); I10 Essential (primary) hypertension; D72.829 Elevated white blood cell count, unspecified

== ENCOUNTER → 2020-08-17 | Outpatient (CLI) | payer OTHER | LOC: MRI 10:23 | PROVIDERS: ATTEND Family Medicine | DX: M51.35 Other intervertebral disc degeneration, thoracolumbar region (principal); M51.36 Other intervertebral disc degeneration, lumbar region ==

== ENCOUNTER → 2020-10-06 | Outpatient (CLI) | payer OTHER | LOC: LAB 07:41 | PROVIDERS: ATTEND Radiology Diagnostic Radiology | DX: Z01.812 Encounter for preprocedural laboratory examination (principal); Z20.822 Contact with and (suspected) exposure to COVID-19 ==

== ENCOUNTER → 2020-10-09 | Outpatient (CLI) | payer OTHER ==
[~2020-10-09] VITALS: Ht 165.1 cm; Wt 97.1 kg
[~2020-10-09] MED LIST changes: +BYSTOLIC10 MG PO; +EDARBYCLOR 40-1 EAC1 PO; +ROSUVASTATIN CA20 MG PO
[2020-10-09 11:21] VITALS: BP 138/77
[2020-10-09 11:59] LABS: ABSOLUTE NEUTROPHILS 9.5 thou/uL (1.4-8.2); BASOPHILS 1.1 % (0.0-2.0); EOSINOPHILS 1.7 % (0.0-3.0); HEMOGLOBIN 15.1 gm/dL (12.0-15.0); LYMPHOCYTES 27.7 % (24.0-44.0); MCH 33.3 pg (26.0-34.0); MCHC 34.3 g/dL (28.0-37.0); MCV 96.9 fL (80.0-100.0); MONOCYTES 4.8 % (1.0-8.0); PLATELET COUNT 309 thou/uL (150-400); POLYS 64.7 % (36.0-66.0); RBC 4.53 mil/uL (4.20-5.00); RDW 14.7 % (10.5-14.5); WBC 14.7 thou/uL (4.0-11.0)
[2020-10-09 12:13] LABS: APTT 28.2 Seconds (24.5-32.8); PROTIME 9.7 Seconds (9.3-11.4)
[2020-10-09 13:16] VITALS: BP 111/70
--- NOTE | 2020-10-29 20:06 | PATH ---
[facility] [address] [place] [address] PATHOLOGY RPT PROCEDURE Name: ALLEN WATSON Room #: REG [facility].#: [id number] Admission: 10/09/20 Date of : 69 Discharge: Report #: [id number] Path Case #: [id number] [facility] Accession Number: [id number] . 01 Material submitted: . PART A: body - BONE MARROW BIOPSY PART B: bone - BONE MARROW CLOT PART C: bone - BONE MARROW ASPIRATE SLIDES PART D: peripheral nerves - PERIPHERAL SMEARS PART E: bone - BONE MARROW FLOW . 01 Clinical history: . 55-year-old woman with leukocytosis and polycythemia. . 02 Diagnosis: Bone marrow aspirate, biopsy, cell clot, and peripheral blood: - Peripheral blood with mild leukocytosis/neutrophilia. - Mildly hypercellular bone marrow with trilineage hematopoiesis, mild (no significant) dyspoiesis and no evidence of lymphoma or acute leukemia (see comment). (CLW:pit 10/21/2020) . . Special studies report received from [facility], [address] [place] [address], [address], [place], [address], on case [id number], labeled with their number [id number], dated 10/12/2020. . Flow Cytometry: Hematologic Neoplasia Assessment . Clinical History Leukocytosis . Indication for Study Evaluation for leukocytosis . Specimen Bone Marrow Aspirate . Viability 93% (7AAD exclusion) . Interpretation Bone Marrow Aspirate: - No evidence for abnormal myeloid maturation or an increased blast population. - No evidence for a B-cell or T-cell lymphoproliferative disorder. . Comments [address] [address] PATHOLOGY RPT PROCEDURE Name: ALLEN WATSON Room #: REG [facility].#: [id number] Admission: 10/09/20 Date of : 69 Discharge: Report #: [id number] Path Case #: [id number] Myeloproliferative and myelodysplastic disorders cannot be categorically excluded by flow cytometric analysis. Correlation with available clinical, laboratory, and morphologic data is recommended. . Populations Analyzed Myeloid Blasts: 0.2% No significant immunophenotypic abnormalities Lymphocytes: 4% B-cells: 0.9%, polytypic/polyclonal sIg light chain pattern T-cells: no significant abnormalities of the markers tested CD4+ T-cells: 1.8% (including 0.1% CD57+ cells) CD8+ T-cells: 1.4% (including 0.4% CD57+ cells) CD4:CD8: 1.3 NK cells: 0.2% Neutrophilic Cells: 92% No significant abnormalities of the markers tested Monocytic Cells: 1.5% No significant abnormalities of the markers tested Eosinophils: 1.4% No relative increase Basophils: 0.1% No relative increase Plasma Cells: 0.1% Few detected; no overt abnormalities of the surface markers tested (plasma cells are typically underrepresented by flow cytometry; cytoplasmic light chains were not assessed) Hematogones: 0.2% Normal B-cell precursors CD45 Negative 0.5% No significant reactivity with the markers Events/Debris: tested (may represent unlysed red blood cells, erythroid precursors, platelets, debris, etc.)(erythroid precursors may be underrepresented due to sample lysis/processing) . Morphologic Evaluation A slide was reviewed for quality assurance analyst purposes only. . Specimen Description Total Cell Yield: 48.35 X 10 and 6 . Reagent(s) Used CD2, CD3, CD4, CD5, CD7, CD8, CD10, CD11b, CD13, CD14, CD16, CD19, CD20, CD33, CD34, CD38, CD45, CD56, CD57, CD64, CD117, HLA-DR, kappa, lambda . at [facility]. Pallavi Astudillo MD Pathologist . . [place] [address] PATHOLOGY RPT PROCEDURE Name: PIPOALLEN RIDLEY Room #: REG CL Jessica#: [id number] Admission: 10/09/20 Date of : 69 Discharge: Report #: [id number] Path Case #: [id number] Flow cytometry is optimally used to immunophenotypically characterize abnormal populations when they are detected. Negative flow cytometry results do not exclude lymphoma or neoplasia. Possible false negative flow cytometry results may occur in, but are not limited to, the following: neoplastic cells in Hodgkin lymphoma are not typically adequately represented by routine clinical flow cytometry; neoplastic cells may be lost or inadequately represented due to degeneration, sample processing, sampling artifact, or patchy involvement; plasma cells are typically underrepresented by flow cytometry; immature cells/blasts may be underrepresented due to hemodilution; myeloproliferative disorders and low grade myelodysplasia may not have immunophenotypic abnormalities or increased blasts. Correlation with all available clinical, laboratory, and morphologic data is always necessary to assess for the possibility of false negative flow cytometry results and to establish a diagnosis. Each marker in this analysis was used to assess for potential antigenic abnormalities or to evaluate detected abnormalities. . Any image or images that accompany this report are provider relations representative images only and should not be used to render a diagnosis. . Disclaimer(s) This test was developed and its performance characteristics determined by [facility]. It has not been cleared or approved by the Food and Drug Administration. . Performing Labs [facility] is a business unit of [facility] a wholly-owned subsidiary of [employer]. . This test was performed at [facility]. at [address] [place] [address], [id number] - Accounts Receivable Bookkeeper: Hakeem Vargas MD. . For inquiries, the physician may contact Lab: [phone] . A complete copy of the report is on file. . Professional services performed by [email or web address] at [address] [place] [address]. Technical services performed by [facility] at [address] [place] [address]. . (CLW:melissa 10/13/2020) . . Special studies report received from [facility], [address] [place] [address], [facility] [address], [place], [address], on case [id number], labeled [address] [address] PATHOLOGY RPT PROCEDURE Name: ALLEN WATSON Room #: REG [facility]#: [id number] Admission: 10/09/20 Date of : 69 Discharge: Report #: [id number] Path Case #: [id number] with their number [id number], dated 10/19/2020. . Cytogenetic Analysis Report . RESULT: Normal Female Karyotype 46,XX(20) . Specimen Type: Bone Marrow . Indication for Study: Leukocytosis . INTERPRETATION: Cytogenetic analysis revealed no evidence of an acquired clonal abnormality. These findings should be interpreted in the context of clinical and pathologic findings. . See Flow Cytometry report [id number] for further information. . . Number of Metaphases Counted: 20 Banding: G-banding Number of Metaphase Cells Analyzed: 20 Band Level: 400 Number of Metaphase Cells Karyotyped: 2 Cultures Established: Unstimulated/Stimulated . at [facility]. Amira Beebe, Ph.D., [facility] Director of Cytogenetics and Molecular Oncology . Disclaimer(s): Any image(s) that accompany this report is/are a provider relations representative image(s) only and should not be used to render a diagnosis. . Based on the resolution of this study, standard cytogenetic methodology does not routinely detect subtle or sub-microscopic rearrangements or low level mosaicism. . Performing Labs: This Test was performed at [facility]. at [address] [place] [address], [address]. [facility] is a business unit of [employer] [employer] a wholly-owned subsidiary of [employer]. . A complete copy of the report is on file. . Professional services performed by [facility] at [address], [place] [address]. Technical services performed by [place] [address] [place] [address] PATHOLOGY RPT PROCEDURE Name: ALLEN WATSON Room #: REG GUILHERME Lopez#: [id number] Admission: 10/09/20 Date of : 69 Discharge: Report #: [id number] Path Case #: [id number] [facility] at [address], [place] [address]. . (CLW:lasha 10/20/2020) [place] 10/21/2020 [facility] . 02 Comment: Overall the bone marrow is mildly hypercellular for the patient's age with trilineage hematopoiesis, mild (no significant) dyspoiesis, and no evidence of lymphoma or acute leukemia. The megakaryocytes are somewhat grouped together and the bone marrow has an overall reactive appearance. A myeloproliferative neoplasm cannot be entirely excluded. Chromosomal analysis reveals a normal female karyotype. Correlation with clinical history and additional laboratory data is recommended. (CLW:pit 10/21/2020) . 02 Addendum: . Additional properly controlled special stains are performed. . Block A1: AFB - negative for acid-fast bacilli; GMS - negative for fungal organisms. . Block B1: AFB - negative for acid-fast bacilli; GMS - negative for fungal organisms. . The final diagnosis remains unchanged. (CLW:lasha; 10/29/2020) . . Professional services performed by [facility] at [facility], [address] [place] [address]. Technical services performed by [facility] at [address] [place] [address], [address] [address]. S/10/29/2020 Addendum Electronically Signed by Catherine Gooden MD, Pathologist . 02 Electronically signed: . Catherine Gooden MD, Pathologist NPI- [id number] . 01 Gross description: . A. Received in formalin labeled "Walter Allen, bone marrow biopsy" is a cylindrical core of austin-brown bone measuring 1.6 cm in length and 0.2 cm in diameter. The specimen is submitted in cassette A1 following immuno-decalcification. . [address] [address] PATHOLOGY RPT PROCEDURE Name: ALLEN WATSON [place] Room #: REG GU[facility] Lopez#: [id number] Admission: 10/09/20 Date of : 69 Discharge: Report #: [id number] Path Case #: [id number] B. Received in formalin labeled "Allen Watson, BM aspirate (clot)" is a 3.0 x 1.2 x 0.1 cm aggregate of red-brown friable clotted blood material. The specimen is filtered and submitted in B1. ([facility]; 10/10/2020) [facility] 10/21/2020 1939 Local . 02 Microscopic: . CBC Data (10/09/2020): WBC 14,700 /uL, RBC 4.53, hemoglobin 15.1 g/dL, hematocrit 44.0%, MCV 96.9 fL, MCH 33.3 pg, MCHC 34.3 g/dL, RDW 14.7%, and platelet count 309,000 /uL. White blood cell differential: segs 64.7%, lymphs 27.7%, monos 4.8%, eos 1.7%, and basos 1.1%. . Peripheral Blood Smear: Cytomorphological examination of the Dotson's stained peripheral blood smear confirms the provided data. Red blood cells are normocytic and are without significant anisopoikilocytosis. White blood cells are mildly increased in number. They are predominantly segmented neutrophils and are without significant dyspoiesis or significant left shift. Lymphocytes are predominantly small, round, and mature appearing with condensed chromatin and scant cytoplasm with admixed large granular lymphocytes and reactive appearing lymphocytes. On scanning, no markedly atypical lymphoid cells are seen. Monocytes are mature. Platelets are adequate in number and mainly normal in morphology with rare larger platelets noted. . Aspirate Smears: Cytomorphological examination of the Dotson's stained aspirate smears shows spicules present. The overall cellularity is approximately 70%. The myeloid to erythroid ratio is 3:1. Full myeloid maturation is identified and is without significant dyspoiesis. Erythroid maturation is mildly dyserythropoietic with irregular nuclear contours and nuclear cytoplasmic dyssynchrony. In a 500 cell differential, there are 1% blasts (no Yessi rods are seen), 39% more differentiated myeloids, 21% erythroid precursors, 9% lymphocytes and less than 1% plasma cells. Megakaryocytes are proportional in number and both normal and abnormal in morphology with variable sizes and nuclear abnormalities. No lymphoid aggregates or markedly atypical lymphoid cells are seen. Plasma cells are without atypia. Iron stain of the aspirate smear shows 2/4+ iron positivity with spicules present. No ringed sideroblasts are identified. . Core Biopsy and Cell Clot: The decalcified bone marrow core biopsy is adequate. Aspiration artifact is noted. The bone marrow appears hypercellular with an overall cellularity of 60-70%. The myeloid to erythroid ratio is 2-3:1. Myeloid maturation is without significant dyspoiesis. An eosinophilia is noted. Erythroid maturation is mildly dyserythropoietic. Megakaryocytes are normal in number and both normal and abnormal in morphology. Scattered small megakaryocytes that are somewhat in groups are noted. No convincing megakaryocyte clustering is identified. No lymphoid aggregates or markedly atypical lymphoid cells are seen. Bony trabeculae and blood [address] [address] PATHOLOGY RPT PROCEDURE Name: ALLEN WATSON Room #: REG GU[facility]ME Jessica#: [id number] Admission: 10/09/20 Date of : 69 Discharge: Report #: [id number] Path Case #: [id number] vessels are unremarkable. The cell clot has spicules present that are approximately 70% cellular. They are similar in cellularity and differential morphology as previously described. Occasional benign appearing lymphoid aggregates are noted. . Properly controlled special stains are performed. Block A1: Iron - 2/4+ iron positivity; Reticulin - No significant reticulin fibrosis; AFB - pending; GMS - pending. . Block B1: Iron - 1/4+ iron positivity with spicules present; AFB - pending; GMS - pending. . Flow Cytometry: Flow cytometric immunophenotypic analysis was performed at [facility]. The diagnosis is "no evidence for an abnormal myeloid maturation or an increased blast population, no evidence of a B-cell or T-cell lymphoproliferative disorder.". There are 0.2% myeloid blasts. There are 4% lymphocytes. Of the lymphocytes, there are 0.9% polyclonal B-cells. T-cells have a CD4/CD8 ratio of 1.3 and no aberrant T-cell antigen expression. There are 92% neutrophilic cells. Please see separate flow cytometry report from [facility] ([id number]). . Cytogenetics Analysis: Cytogenetic chromosomal analysis was performed at [facility]. The karyotype is 46XX(20). The interpretation is a normal female karyotype. Cytogenetic analysis revealed no evidence of an acquired clonal abnormality. Please see separate cytogenetic report from [facility] ([id number]). (CLW:[facility] 10/21/2020) . 02 Pathologist provided ICD-10: D72.829, D75.89 . 02 CPT . 019760, 956611, 588150, 362848, 872871, 883392, 348158, 286929, 776084, 822060, 998960, 156907, [id number] Specimen Comment: A courtesy copy of this report has been sent to [phone] Specimen Comment: Report sent to Performed at: [address] [facility], [place] [id number] MD Brodie Luna MD Phone: [phone] Performed at: 02 [facility] [address] [place] [address] PATHOLOGY RPT PROCEDURE Name: ALLEN WATSON Room #: REG CLI Jessica#: [id number] Admission: 10/09/20 Date of : 69 Discharge: Report #: [id number] Path Case #: [id number] [facility] [place] [address], [place] [id number] MD Isa Salmeron MD Phone: [phone]
== END | disposition home or self-care (01) ==
LOC: SPEC 11:00
PROVIDERS: ATTEND Radiology Diagnostic Radiology
DX: D72.829 Elevated white blood cell count, unspecified (principal); D75.89 Other specified diseases of blood and blood-forming organs; I10 Essential (primary) hypertension; K21.9 Gastro-esophageal reflux disease without esophagitis; F32.9 Major depressive disorder, single episode, unspecified; F41.9 Anxiety disorder, unspecified; G47.30 Sleep apnea, unspecified; F17.210 Nicotine dependence, cigarettes, uncomplicated; E66.09 Other obesity due to excess calories; Z98.890 Other specified postprocedural states; Z79.899 Other long term (current) drug therapy; Z90.710 Acquired absence of both cervix and uterus; Z82.49 Family history of ischemic heart disease and other diseases of the circulatory system; Z83.3 Family history of diabetes mellitus

== ENCOUNTER → 2020-10-15 | Outpatient (CLI) | payer OTHER | LOC: SJCVCIMAG 10:53 | PROVIDERS: ATTEND Internal Medicine Cardiovascular Disease | DX: I37.1 Nonrheumatic pulmonary valve insufficiency (principal); I10 Essential (primary) hypertension; K80.20 Calculus of gallbladder without cholecystitis without obstruction ==

== ENCOUNTER → 2021-03-03 | Outpatient (CLI) | payer OTHER ==
[2021-03-03 13:19] LABS: ABSOLUTE NEUTROPHILS 8.4 thou/uL (1.4-8.2); EOSINOPHILS 1.6 % (0.0-3.0); HEMATOCRIT 42.5 % (37.0-47.0); HEMOGLOBIN 14.2 gm/dL (12.0-15.0); LYMPHOCYTES 34.7 % (24.0-44.0); MCH 32.8 pg (26.0-34.0); MCHC 33.3 g/dL (28.0-37.0); MCV 98.4 fL (80.0-100.0); PLATELET COUNT 345 thou/uL (150-400); POLYS 57.7 % (36.0-66.0); RBC 4.32 mil/uL (4.20-5.00); WBC 14.6 thou/uL (4.0-11.0)
== END ==
LOC: LAB 12:47
PROVIDERS: ATTEND Family Medicine
DX: M51.36 Other intervertebral disc degeneration, lumbar region (principal); M25.50 Pain in unspecified joint

== ENCOUNTER → 2021-06-09 | Outpatient (CLI) | payer OTHER ==
[~2021-06-09] MED LIST changes: +BUPRENORPHINE1 EACH TOP; +ESTRACE1 MG PO; +LOSARTAN-HCTZ1 EAC3 PO; +TOPROL XL50 MG PO
[2021-06-09 13:18] LABS: BASOPHILS 0.5 % (0.0-2.0); EOSINOPHILS 1.7 % (0.0-3.0); HEMATOCRIT 39.8 % (37.0-47.0); HEMOGLOBIN 14.1 gm/dL (12.0-15.0); LYMPHOCYTES 37.3 % (24.0-44.0); MCH 34.4 pg (26.0-34.0); MCHC 35.4 g/dL (28.0-37.0); MCV 97.4 fL (80.0-100.0); MONOCYTES 5.2 % (1.0-8.0); PLATELET COUNT 333 thou/uL (150-400); POLYS 55.3 % (36.0-66.0); RBC 4.09 mil/uL (4.20-5.00); RDW 15.6 % (10.5-14.5); WBC 14.4 thou/uL (4.0-11.0)
[2021-06-09 13:55] LABS: ALBUMIN 4.1 g/dL (3.4-5.0); ANION GAP 10 mmol/L (7-16); BUN 15 mg/dL (7-18); CHLORIDE 100 mmol/L (98-107); CHOLESTEROL 199 mg/dL (<200); CO2 27 mmol/L (21-32); CREATININE 0.9 mg/dL (0.6-1.0); GLUCOSE 94 mg/dL (74-106); HDL CHOLESTEROL 41 mg/dL (>40); LDL CHOLESTEROL 82 mg/dL (<100); POTASSIUM 3.7 mmol/L (3.5-5.1); SGOT 18 U/L (15-37); SGPT 30 U/L (30-65); SODIUM 137 mmol/L (136-145); TC:HDL 4.9 Ratio (Not establshd); TOTAL BILIRUBIN 0.5 mg/dL (0.2-1.0); TOTAL PROTEIN 7.8 g/dL (6.4-8.2); TRIGLYCERIDE 380 mg/dL (<150); VLDL 76 mg/dL (<40)
== END ==
LOC: LAB 11:47 → RAD 11:47
PROVIDERS: ATTEND Family Medicine
DX: Z12.31 Encounter for screening mammogram for malignant neoplasm of breast (principal); M51.36 Other intervertebral disc degeneration, lumbar region; E55.9 Vitamin D deficiency, unspecified; I10 Essential (primary) hypertension; N64.89 Other specified disorders of breast